=== PATIENT | male | born 1930 | race Caucasian/White ===

== ENCOUNTER 2016-06-25 02:12 | Inpatient (IN) | payer OTHER ==
[2016-06-25] VITALS (12 sets, daily range): BP systolic 83–120; BP diastolic 50–64; O2SAT 86–92
[~2016-06-25] VITALS: Ht 188 cm; Wt 69.2 kg
[2016-06-25] MEDS ORDERED: MUCI30TA2 PO (02:44)
[2016-06-25] MEDS ORDERED: MECL-86 PO (02:44)
[2016-06-25] MEDS ORDERED: ASPI1TAB PO (02:44)
[2016-06-25] MEDS ORDERED: ACET500T37 PO (02:44)
[2016-06-25] MEDS ORDERED: OMEP40CA2 PO (02:44)
[2016-06-25] MEDS ORDERED: SIMV10TA2 PO (02:44)
[2016-06-25] MEDS ORDERED: METO25TA74 PO (02:44)
[2016-06-25] MEDS ORDERED: IBUPROFEN 600 MG TAB As Ordered ONE (03:05)
[2016-06-25] MEDS ORDERED: IBUPROFEN 600 MG TAB PO ONE (03:15)
[2016-06-25] MEDS ORDERED: NS 500 ML IV ONE (05:00)
[2016-06-25 05:13] LABS: MEAN CORPUSCULAR HEMOGLOBIN 32.9 pg (27.0-33.0); MEAN CORPUSCULAR HGB CONC 33.9 g/dl (32.0-36.5); MEAN CORPUSCULAR VOLUME 96.9 fl (80.0-96.0); PLATELET COUNT, AUTOMATED 163 k/mm3 (150-450); RED CELL DISTRIBUTION WIDTH 13.1 % (11.5-14.5); WHITE BLOOD COUNT 5.6 K/mm3 (4.0-10.0)
[2016-06-25] MEDS ORDERED: AZITHROMYCIN INJ 500 MG, VIAL MATE ADAPTER 1 EACH in D5W 250 ML IV ONE (05:15)
[2016-06-25] MEDS ORDERED: CEFUROXIME SODIUM 1.5 GM in D5W MINI-BAG PLUS 50 ML IV ONE ×2 (05:15→06:30)
[2016-06-25 05:16] LABS: ALBUMIN 3.3 GM/DL (3.2-5.2); ALBUMIN/GLOBULIN RATIO 1.22 (1.00-1.93); ALKALINE PHOSPHATASE 51 U/L (45-117); ALT/SGPT 14 U/L (12-78); AMYLASE 33 U/L (25-115); ANION GAP 9 MEQ/L (8-16); AST/SGOT 14 U/L (15-37); BILIRUBIN,DIRECT 0.1 MG/DL (0.0-0.2); BILIRUBIN,TOTAL 0.4 MG/DL (0.2-1.0); BLOOD UREA NITROGEN 21 MG/DL (7-18); CALCIUM LEVEL 8.5 MG/DL (8.8-10.2); CARBON DIOXIDE LEVEL 26 MEQ/L (21-32); CHLORIDE LEVEL 108 MEQ/L (98-107); CREATININE FOR GFR 0.73 MG/DL (0.70-1.30); GLOMERULAR FILTRATION RATE > 60.0 (>35); GLUCOSE, FASTING 117 MG/DL (83-110); POTASSIUM SERUM 3.5 MEQ/L (3.5-5.1); SODIUM LEVEL 143 MEQ/L (136-145)
[2016-06-25] MEDS ORDERED: FLON1SPR (06:05)
[2016-06-25] MEDS ORDERED: NS 1,000 ML IV SCH (06:06)
[2016-06-25] MEDS ORDERED: ONDANSETRON 4MG/2ML VIAL (J2405) IV PRN (06:15)
[2016-06-25] MEDS ORDERED: POTASSIUM CHLORIDE 10 MEQ SR TABLET PO ONE (06:15)
[2016-06-25 06:17] LABS: MAGNESIUM LEVEL 1.6 MG/DL (1.8-2.4)
[2016-06-25] MEDS: HEPARIN SOD (PORCINE) 5000 UNITS/ML VIAL SC SCH ×3 (06:39→21:14)
[2016-06-25] MEDS ORDERED: MAG SULF 1GM/100ML (MAG RUN) 1 GM in APPROPRIATE DILUENT 1 EA IV ONE (06:45)
--- NOTE | 2016-06-25 07:34 | HPE ---
DATE OF ADMISSION: 06/25/2016 PRIMARY CARE PROVIDER: Dr. Tiago Jha CHIEF COMPLAINT: Nausea, vomiting, cough and shortness of breath. HISTORY OF PRESENT ILLNESS: The patient is a poor historian and very hard of hearing. This is an 86-year-old male patient with underlying medical history of hypertension, dyslipidemia, gastroesophageal reflux disease (GERD), and remote history of bladder cancer who presented with a couple of weeks history of cough and over the last night reported that around midnight with chills. He was found to be with fever of 103 in the emergency room. He was also vomiting with mucusy material times three. The patient reported cough over the past couple of days with white phlegm. He does have sick contact. The patient's is at the halfway and he visits every day. The patient denies any chest pain, pressure or discomfort. He denies any abdominal pain or diarrhea. He was found to be hypoxic as well. He does not use oxygen at home. He does have history of obstructive sleep apnea and is supposed to use a CPAP, but because of the skin lesion was not able to do so. ALLERGIES: No known drug allergies. PAST MEDICAL HISTORY: 1. GERD. 2. Dyslipidemia. 3. Hypertension. 4. Remote history of bladder cancer. 5. Obstructive sleep apnea. PAST SURGICAL HISTORY: 1. Toe surgery. 2. Vascular surgery on the leg for superficial blood clots. SOCIAL HISTORY: The patient lives at home alone. His is at the halfway. The patient smoked many years ago, quit smoking in 1970s. He does not drink alcohol. He does not use illicit drugs. FAMILY HISTORY: Noncontributory. REVIEW OF SYSTEMS: Ten point review of systems negative except for those mentioned in the history of present illness (HPI). The patient denies any coronary artery disease or cerebrovascular disease. Baseline is relatively healthy. HOME MEDICATIONS: - aspirin 81 mg by mouth daily - acetaminophen 500 mg by mouth every 4 hours as needed - Flonase inhalation daily - meclizine 25 mg by mouth twice a day - metoprolol 25 mg by mouth daily - Mucinex by mouth daily - omeprazole 20 mg by mouth daily - Zocor 10 mg by mouth daily PHYSICAL EXAMINATION: VITAL SIGNS: Temperature maximum (T-max) 103.1. Pulse 108. Respiratory rate 20. Blood pressure 116/64. The patient did have an episode of hypotension down to 80/50. Pulse oximetry 86% on room air and 92% on 2 liters nasal cannula. GENERAL: Patient alert, oriented times three, hard of hearing, in no acute distress. HEENT: Normocephalic, atraumatic. Pale. PULMONARY: Bilateral rhonchi, right greater than left. No wheeze. CARDIAC: Regular rate and rhythm. Normal S1, S2. ABDOMEN: Soft. Nontender. Nondistended. EXTREMITIES: No edema of bilateral lower extremities. Dorsalis pedis (DP) and posterior tibial (PT) pulses bilaterally intact. Chest x-ray shows right middle lobe infiltrate and consolidations. LABORATORY: WBC 5.6, hemoglobin and hematocrit (H and H) 13.4 over 39.5. Platelets 163. Chemistry: Sodium 143, potassium 3.5, chloride 108, bicarbonate 26, BUN 21, creatinine 0.73, lactic acid 1.4, C-reactive protein negative, lipase negative. ASSESSMENT AND PLAN: This is an 86-year-old male patient with underlying medical history of hypertension, dyslipidemia, gastroesophageal reflux disease, remote history of bladder cancer, and obstructive sleep apnea, admitted with sepsis secondary to community acquired bacterial pneumonia. PROBLEM: 1. Sepsis secondary to community acquired bacterial pneumonia. IV fluids, Rocephin, azithromycin, and respiratory panel. Sputum cultures and blood cultures. Influenza negative. Lactic acid negative. Followup C-reactive protein. 2. Hypertension. Given patient's borderline low blood pressure in the emergency room, will hold blood pressure medication and restart as needed. 3. Dyslipidemia. Continue statin. 4. Gastroesophageal reflux disease. Continue proton pump inhibitor (PPI). 5. Obstructive sleep apnea. Counseling provided. Patient will need refitting of the mask as outpatient. Will put patient on obstructive sleep apnea protocol. 6. Deep vein thrombosis (DVT) prophylaxis. Heparin subcutaneous. DISPOSITION: Pending clinical improvement and cultures.
[2016-06-25] MEDS: NS 1,000 ML IV SCH ×2 (07:36→10:42)
--- NOTE | 2016-06-25 08:38 | REP ---
REASON: Fever. COMPARISON: 05/18/2011 New patchy interstitial and airspace opacities have developed in the right upper and right lower lobes with blunting of the right CP angle. The left lung is unchanged. The cardiomediastinal silhouette is unchanged. There is no change in the osseous structures. IMPRESSION: Right upper and lower lobe pneumonia with a small right pleural effusion. Signed by Janak Terrell DO 06/25/2016 08:49 A
[2016-06-25] MEDS ORDERED: SODIUM CHLORIDE 0.9% 1000 ML IV ONE (10:00)
[2016-06-25] MEDS: FLUTICASONE PROP 0.05% NASAL SPRAY 16 GM (FLONASE) SCH (10:42)
[2016-06-25] MEDS: LACTOBACILLUS ACIDOPHILUS CAP (BACID) PO SCH ×2 (10:43→21:14)
[2016-06-25] MEDS: ASPIRIN 81 MG ENTERIC TAB PO SCH (10:46)
[2016-06-25] MEDS: OMEPRAZOLE 20 MG CAP PO SCH (10:46)
[2016-06-25] MEDS: MECLIZINE 25 MG TABLET PO SCH ×2 (10:46→21:14)
--- NOTE | 2016-06-25 11:28 | IPNPDOC ---
Date Seen The patient was seen on 06/25/16. Progress Note Hospitalist Progress Note Subjective: Mr. Dunbar was seen and evaluated at the bedside this morning. He was resting comfortably and sleeping when I entered the room. He was easily awakened, and answers all of his questions appropriately. He states that he is feeling much better this morning, but he still gets winded even with the smallest exertion and he is also saturating only about 88-90% on 2 L nasal cannula, and he does not usually wear oxygen at home. He still has cough, but it is not very productive, just a small amount of sputum. He denies any chest pain, or palpitations. He has a good appetite, denies changes in vision or hearing, no nausea or vomiting, no constipation or diarrhea, he does not have any rashes, lumps, bumps, or bruises he cannot account for her, and he does not have any swelling in the lower extremities. The remainder of his review of systems is negative. Objective: General: Sitting upright in bed. Awake, alert, oriented 3. He is in no apparent distress HEENT: Head normocephalic, atraumatic, sclera are nonicteric. Hearing is grossly intact to conversation. He does wear hearing aids Respiratory: He does have some moderate crackles in the right lung sandoval, otherwise remainder of his lungs are clear to auscultation Cardiovascular: Regular rate and rhythm, with no rubs, gallops, or murmur. Abdomen: Soft, nontender, nondistended, no hepatosplenomegaly appreciated. Bowel sounds present. Extremities: 2+ pulses in the radial and dorsalis pedis bilaterally. No evidence of clubbing or cyanosis. Assessment/Plan: 1. Community-acquired bacterial pneumonia. Continue with IV fluids and empiric antibiotics of Rocephin and azithromycin. Influenza has returned negative, blood cultures are still pending. He has no leukocytosis, lactic acid this morning was negative, CRP is negative. He did have a fever of 103.1 upon admission, fever has abated this morning. Given his clinical picture, terrible exertional fatigue, and his continued need for oxygen, I do feel it necessary that he continue with inpatient stay and IV antibiotics. As there is some question as to whether this is aspiration related, we will have speech therapy come and evaluate him as well. 2. Chronic history of hypertension. His pressures continue to be on the low side , therefore we will continue to hold his home medications at this time. If he does begin to become hypertensive, we can restart them as needed 3. Hypomagnesemia. Repletion has been ordered. 4. Dyslipidemia. Continue statin 5. GERD. Continue PPI 6. Obstructive sleep apnea. He states that after he had multiple skin cancer lesions removed off of his face is masked no longer fits, therefore he will need outpatient refitting. 7. DVT prophylaxis with subcutaneous heparin My preceptor for this patient encounter was physically present in the building during the encounter and was fully available. As needed, all aspects of the patient interview, examination, medical decision making process, and medical care plan development were reviewed and approved by the preceptor. Preceptor is aware and concurs with the plan as stated in the body of this note and will attest to such by his/her cosignature. Attending Note: I have independently examined this patient and all aspects of the exam and treatment decisions have been discussed with the resident. A member of the hospitalist staff will continue to follow this patient through discharge. [facility] Vital Signs/I&O Vital Signs Date Time Temp Pulse Resp B/P Pulse Ox O2 Delivery O2 Flow Rate FiO2 06/25/16 06:47 84 20 93/54 92 Nasal Cannula 2 06/25/16 05:39 97.9 Laboratory Data 24H LABS Laboratory Tests 2 06/25/16 02:46: Aspartate Amino Transf (AST/SGOT) 14L, Alanine Aminotransferase (ALT/SGPT) 14, Alkaline Phosphatase 51, Total Bilirubin 0.4, Direct Bilirubin 0.1, Albumin 3.3 , Albumin/Globulin Ratio 1.22, Amylase Level 33, Anion Gap 9, White Blood Count 5.6, Red Blood Count 4.07L, Hemoglobin 13.4L, Hematocrit 39.5L, Mean Corpuscular Volume 96.9H, Mean Corpuscular Hemoglobin 32.9, Mean Corpuscular Hemoglobin Concent 33.9, Red Cell Distribution Width 13.1, Platelet Count 163, Neutrophils (%) (Auto) , Lymphocytes (%) (Auto) , Monocytes (%) (Auto) , Eosinophils (%) (Auto) , Basophils (%) (Auto) , Neutrophils # (Auto) , Lymphocytes # (Auto) , Monocytes # (Auto) , Eosinophils # (Auto) , Basophils # ( Auto) , C-Reactive Protein, Quantitative < 0.30, Calcium Level 8.5L, Glomerular Filtration Rate > 60.0, Large Unclassified Cells # , Large Unclassified Cells % , Lipase 68L, Lymphocytes (Manual) 8L, Magnesium Level 1.6L, Monocytes (Manual) 2, Neutrophils 90H, Platelet Estimate NORMAL, Red Blood Cell Morphology NORMAL, Total Protein 6.0L 06/25/16 06:03: Lactic Acid Level 1.4 CBC/BMP Laboratory Tests 06/25/16 02:46 Red Blood Count 4.07 L, Mean Corpuscular Volume 96.9 H, Mean Corpuscular Hemoglobin 32.9, Mean Corpuscular Hemoglobin Concent 33.9, Red Cell Distribution Width 13.1, Neutrophils (%) (Auto) , Lymphocytes (%) (Auto) , Monocytes (%) (Auto) , Eosinophils (%) (Auto) , Basophils (%) (Auto) , Neutrophils # (Auto) , Lymphocytes # (Auto) , Monocytes # (Auto) , Eosinophils # (Auto) , Basophils # (Auto) Microbiology Microbiology 06/25/16 Blood Culture, Received Pending 06/25/16 Influenza Virus Type A Antigen - Final, Complete 06/25/16 Influenza Virus Type B Antigen - Final, Complete JANNY LI DO Jun 25, 2016 11:27 YAMIL AIKEN DO Jun 27, 2016 08:20
--- NOTE | 2016-06-25 13:50 | ECGEPIP ---
Stationary ECG Study [facility] Test Date: 2016-06-25 Pat Name: KRYSTINA LUTHER Department: Room: [facility] Gender: M Contact Center Analyst: MARISOL : [id number] Requested By: SILVIO VALVERDE Order Number: [id number] Reading MD: Garrett Landeros Measurements Intervals [place] Rate: 78 P: 29 DE: 255 QRS: -31 QRSD: 132 T: 22 QT: 420 QTc: 479 Interpretive Statements SINUS RHYTHM WITH FIRST DEGREE AV BLOCK LEFT AXIS DEVIATION INTRAVENTRICULAR CONDUCTION DELAY Electronically Signed On 06-25-2016 13:50:26 EDT by Garrett Landeros
[2016-06-25] MEDS: cefTRIAXone SOD 2 GM in D5W MINI-BAG PLUS 50 ML IV SCH (18:26)
[2016-06-25] MEDS: SIMVASTATIN 10 MG TAB PO SCH (21:14)
[2016-06-26] VITALS (13 sets, daily range): BP systolic 117–138; BP diastolic 64–78; O2SAT 90–94
[2016-06-26 01:56] LABS: INR 1.08
[2016-06-26] MEDS: NS 1,000 ML IV SCH ×2 (04:13→15:33)
[2016-06-26] MEDS: AZITHROMYCIN INJ 500 MG, VIAL MATE ADAPTER 1 EACH in D5W 250 ML IV SCH (05:02)
[2016-06-26] MEDS: HEPARIN SOD (PORCINE) 5000 UNITS/ML VIAL SC SCH ×3 (05:03→21:47)
[2016-06-26 05:52] LABS: MEAN CORPUSCULAR HEMOGLOBIN 33.9 pg (27.0-33.0); MEAN CORPUSCULAR HGB CONC 34.6 g/dl (32.0-36.5); MEAN CORPUSCULAR VOLUME 97.7 fl (80.0-96.0); RED CELL DISTRIBUTION WIDTH 13.2 % (11.5-14.5); WHITE BLOOD COUNT 8.4 K/mm3 (4.0-10.0)
[2016-06-26 06:04] LABS: ANION GAP 6 MEQ/L (8-16); BLOOD UREA NITROGEN 15 MG/DL (7-18); CALCIUM LEVEL 8.2 MG/DL (8.8-10.2); CARBON DIOXIDE LEVEL 28 MEQ/L (21-32); CHLORIDE LEVEL 109 MEQ/L (98-107); CREATININE FOR GFR 0.56 MG/DL (0.70-1.30); GLOMERULAR FILTRATION RATE > 60.0 (>35); GLUCOSE, FASTING 102 MG/DL (83-110); MAGNESIUM LEVEL 1.9 MG/DL (1.8-2.4); POTASSIUM SERUM 3.7 MEQ/L (3.5-5.1); SODIUM LEVEL 143 MEQ/L (136-145)
[2016-06-26] MEDS ORDERED: ISOVUE-370 76% 100ML VIAL (Q9967) As Ordered ONE (07:56)
--- NOTE | 2016-06-26 08:05 | IPN ---
DATE: 06/26/2016 86-year-old male seen at bedside. No overnight issues reported. No fevers, chills, nausea or vomiting. However, he is having some issues with hypoxia today requiring elevation in his oxygen supplementation. At bedside, however, he is pleasant and he denies shortness of breath. However, he said he had some hemoptysis this morning. OBJECTIVE: Temperature is 99.7, pulse 77, respiratory rate 20, blood pressure (BP) 117/64, SPO2 is 92% on high-flow at 8 liters. General: The patient appears to be in no acute distress. He is pleasant to talk. He is able speak in complete sentences and does not acutely appear to be in any respiratory distress. HEENT: Head is a atraumatic, normocephalic. Eyes: Pupils equal, reactive to light and accommodation (BRANDYN. Throat clear. Lungs: Diminished right basilar breath sounds with expiratory wheeze and crackles noted on the right. The left has a diminished basal breath sound, but otherwise clear. Heart: Regular rate and rhythm. Abdomen: Soft. Extremities: No edema. No calf tenderness. LABORATORY DATA: White count is 8.4, hemoglobin 11.5, platelets 128,000. Sodium 143, potassium 3.7, chloride 109, bicarb 20, anion gap 6, BUN is 15, creatinine 0.56, glucose 102, lactic acid 1.4, CRP is 16.8. Respiratory viral panel was negative. Influenza A and B negative. Blood cultures are pending. Sputum culture is pending. ASSESSMENT/PLAN: 1. Sepsis secondary to community acquired pneumonia. Continue with current antibiotic coverage. Lactic acid level was negative. We did do a repeat CRP which did have an increase, however, the patient remains afebrile. He is having some trouble with some hypoxia this morning. Will go ahead and do a CT angio of the chest and an ABG on him. 2. Acute hypoxia, as outlined above. 3. Hypertension. Holding his blood pressure medications for the time being. 4. Dyslipidemia. Continue statin. 5. Gastroesophageal reflux disease (GERD). Stable on proton pump inhibitor (PPI). 6. Obstructive sleep apnea (LINDSAY). LINDSAY protocol is in place. I do not see his C-PAP machine at bedside. We may need to discuss with respiratory therapy to see if we get a table top with his home settings. 7. Deep vein thrombosis (DVT) prophylaxis, subcutaneous heparin. DISPOSITION: The patient's prognosis is somewhat guarded at this point. Again, I would like to get a CT angio of the chest and an ABG for followup.
[2016-06-26] MEDS: FLUTICASONE PROP 0.05% NASAL SPRAY 16 GM (FLONASE) SCH (08:53)
[2016-06-26] MEDS: LACTOBACILLUS ACIDOPHILUS CAP (BACID) PO SCH ×2 (08:53→21:47)
[2016-06-26] MEDS: OMEPRAZOLE 20 MG CAP PO SCH (08:53)
[2016-06-26] MEDS: MECLIZINE 25 MG TABLET PO SCH ×2 (08:53→21:46)
[2016-06-26] MEDS: ASPIRIN 81 MG ENTERIC TAB PO SCH (08:53)
--- NOTE | 2016-06-26 09:42 | REP ---
REASON: Hematemesis and cough. COMPARISON: 07/25/2011. Contrast utilized 100 mL Isovue 370. There is good visualization of the pulmonary arterial vasculature. There are no focal filling defects present that would be considered consistent with pulmonary emboli. The thoracic aorta is within normal limits. There are small bilateral pleural effusions. The imaged upper abdomen is within normal limits. The imaged osseous structures are within normal limits for the patient's age. Evaluation of the lung sandoval show heavy patchy and asymmetric right upper lobe and right lower lobe opacities representing a significant change from the prior exam. Curvilinear and streaky opacities are seen in the left lung base. IMPRESSION: 1. There is no evidence of a pulmonary embolus. 2. Advanced lung sandoval abnormalities consistent with right upper and lower lobe pneumonia possible left lower lobe pneumonia versus subsegmental atelectasis with small bilateral pleural effusions. 3. Other findings as described above. Signed by Janak Terrell DO 06/26/2016 09:44 A
[2016-06-26 09:58] LABS: ABG BASE EXCESS -0.8 (-2.0-2.0); ABG HCO3 23.1 MEQ/L (22.0-26.0); ABG PARTIAL PRESSURE CO2 35.7 mmHg (35.0-45.0); ABG PARTIAL PRESSURE O2 60.5 mmHg (75.0-100.0); ABG STANDARD HCO3 23.7 MEQ/L (22.0-26.0); ABG TOTAL CO2 24.2 MEQ/L (23.0-31.0); ABG pH (ARTERIAL) 7.429 UNITS (7.350-7.450)
[2016-06-26] MEDS: cefTRIAXone SOD 2 GM in D5W MINI-BAG PLUS 50 ML IV SCH (18:48)
[2016-06-26] MEDS: SIMVASTATIN 10 MG TAB PO SCH (21:46)
[2016-06-27] VITALS (9 sets, daily range): BP systolic 106–141; BP diastolic 58–69; O2SAT 90–95
[2016-06-27 06:05] LABS: MEAN CORPUSCULAR HEMOGLOBIN 34.3 pg (27.0-33.0); MEAN CORPUSCULAR HGB CONC 35.1 g/dl (32.0-36.5); MEAN CORPUSCULAR VOLUME 97.8 fl (80.0-96.0); RED CELL DISTRIBUTION WIDTH 12.9 % (11.5-14.5); WHITE BLOOD COUNT 7.5 K/mm3 (4.0-10.0)
[2016-06-27 06:15] LABS: ANION GAP 8 MEQ/L (8-16); BLOOD UREA NITROGEN 8 MG/DL (7-18); CALCIUM LEVEL 9.2 MG/DL (8.8-10.2); CARBON DIOXIDE LEVEL 28 MEQ/L (21-32); CHLORIDE LEVEL 105 MEQ/L (98-107); CREATININE FOR GFR 0.53 MG/DL (0.70-1.30); GLOMERULAR FILTRATION RATE > 60.0 (>35); GLUCOSE, FASTING 89 MG/DL (83-110); MAGNESIUM LEVEL 2.1 MG/DL (1.8-2.4); POTASSIUM SERUM 3.5 MEQ/L (3.5-5.1); SODIUM LEVEL 141 MEQ/L (136-145)
[2016-06-27] MEDS: NS 1,000 ML IV SCH ×2 (06:28→18:53)
[2016-06-27] MEDS: AZITHROMYCIN INJ 500 MG, VIAL MATE ADAPTER 1 EACH in D5W 250 ML IV SCH (06:29)
[2016-06-27] MEDS: HEPARIN SOD (PORCINE) 5000 UNITS/ML VIAL SC SCH ×3 (06:31→20:38)
[2016-06-27] MEDS: MECLIZINE 25 MG TABLET PO SCH ×2 (09:29→20:38)
[2016-06-27] MEDS: LACTOBACILLUS ACIDOPHILUS CAP (BACID) PO SCH ×2 (09:29→20:38)
[2016-06-27] MEDS: ASPIRIN 81 MG ENTERIC TAB PO SCH (09:30)
[2016-06-27] MEDS: OMEPRAZOLE 20 MG CAP PO SCH (09:30)
[2016-06-27] MEDS: FLUTICASONE PROP 0.05% NASAL SPRAY 16 GM (FLONASE) SCH (09:35)
[2016-06-27] MEDS: cefTRIAXone SOD 2 GM in D5W MINI-BAG PLUS 50 ML IV SCH (18:39)
--- NOTE | 2016-06-27 18:50 | IPNPDOC ---
Date Seen The patient was seen on 06/27/16. Progress Note Hospitalist Progress Note Subjective: Patient has no complaints. He states his breathing has not changed. Objective: Physical Exam: Vitals: Vital Sign - Last 24 Hours 06/26/16 06/26/16 06/26/16 06/27/16 20:46 23:12 23:22 00:44 Temp 100.1 99.6 Pulse 82 80 Resp 20 20 B/P 138/67 141/68 Pulse Ox 91 93 92 O2 Delivery High Flow Cannula Nasal Cannula Nasal Cannula High Flow Cannula O2 Flow Rate 8.0 8.0 8.0 8.0 06/27/16 06/27/16 06/27/16 06/27/16 00:51 04:32 04:33 05:24 Temp 98.6 Pulse 75 Resp 20 B/P 139/69 Pulse Ox 90 95 O2 Delivery Nasal Cannula Nasal Cannula Nasal Cannula High Flow Cannula O2 Flow Rate 8.0 8.0 8.0 8.0 06/27/16 06/27/16 06/27/16 06/27/16 08:00 08:00 08:00 12:00 Temp 98.9 98.0 Pulse 78 67 Resp 20 18 B/P 116/67 130/64 Pulse Ox 95 90 94 O2 Delivery Nasal Cannula Nasal Cannula High Flow Cannula High Flow Cannula O2 Flow Rate 7.0 8.0 8.0 8.0 06/27/16 06/27/16 06/27/16 06/27/16 12:00 16:00 16:00 16:00 Temp 99.1 Pulse 77 Resp 18 B/P 106/58 Pulse Ox 95 94 94 O2 Delivery Nasal Cannula High Flow Cannula Nasal Cannula Nasal Cannula O2 Flow Rate 7.0 8.0 8.0 8.0 General: Awake, alert, no acute distress HEENT: Normocephalic, atraumatic, extraocular movements intact CV: Regular rate and rhythm, no murmurs rubs or gallops Lungs: Clear to auscultation bilaterally, moving good air Abd: Soft, nontender, nondistended Extremities: No edema of the bilateral lower extremities Neuro: Very hard of hearing, but normal speech, alert and oriented Psych: Normal mood and affect Labs and Imaging: Laboratory Tests 06/27/16 05:00 Calcium Level 9.2, Red Blood Count 3.51 L, Mean Corpuscular Volume 97.8 H, Mean Corpuscular Hemoglobin 34.3 H, Mean Corpuscular Hemoglobin Concent 35.1, Red Cell Distribution Width 12.9 Assessment and Plan: 86-year-old male with hypertension, hyperlipidemia, GERD, remote history of bladder cancer, LINDSAY who presented with vomiting, cough, chills, and shortness of breath. He has been admitted with sepsis secondary to a right community- acquired pneumonia. 1. Sepsis secondary to a right community-acquired pneumonia: Patient is currently afebrile with a normal white count. However, he continues to require 8 L of oxygen. Chest x-ray and CT of the chest showed right upper lobe and right lower lobe pneumonias as well as a small right pleural effusion. Blood cultures are negative, and his sputum culture is currently growing GPC's. Continue azithromycin and Rocephin. 2. Hypertension: Blood pressure upon admission was fairly soft. BP has now improved, but we are still holding his home metoprolol. At this point, I believe we can stop his IV fluids. 3. Hyperlipidemia: Continue home statin. 4. GERD: Continue home PPI. 5. LINDSAY: Patient needs refitting of his mask as an outpatient. He is currently on continuous pulse ox in the PCU. DVT prophylaxis: Heparin Dispo: at this time, the patient's prognosis continues to be guarded and he will need to remain in the PCU for close monitoring. VS, [facility] Vital Signs/I&O Vital Signs Date Time Temp Pulse Resp B/P Pulse Ox O2 Delivery O2 Flow Rate FiO2 06/27/16 16:00 Nasal Cannula 8.0 06/27/16 16:00 94 06/27/16 16:00 99.1 77 18 106/58 I&O- Last 24 Hours up to 6 AM 06/27/16 06:00 Intake Total 600 ml Output Total 1550 ml Balance -950 ml Laboratory Data 24H LABS Laboratory Tests 2 06/27/16 04:13: Urine Amorphous Sediment , Urine Appearance CLEAR, Urine Color STRAW, Urine pH 7.0, Urine Specific [place] 1.003, Urine Protein NEGATIVE, Urine Glucose (UA) NEGATIVE, Urine Ketones TRACEH, Urine Urobilinogen 0.2, Urine Bilirubin NEGATIVE , Urine Leukocyte Esterase NEGATIVE, Urine Bacteria (Auto) NEGATIVE, Urine Blood NEGATIVE, Urine Calcium Carbonate Cryst(Auto) , Urine Calcium Oxalate Cryst (Auto) , Urine Calcium Phosphate [place] (Auto) , Urine Cellular Casts , Urine Cystine Crystals , Urine Granular Casts (Auto) , Urine Hyaline Casts (Auto ) 0, Urine Leucine Crystals , Urine Mucus (Auto) SMALL, Urine Nitrite NEGATIVE, Urine Oval Fat Bodies (Auto) , Urine RBC (Auto) 0, Urine Renal Epithelial Cells , Urine Sperm (Auto) , Urine Squamous Epithelial Cells 0, Urine Transitional Epithelial Cells , Urine Trichomonas (Auto) , Urine Triple Phosphate Cryst (Auto ) , Urine Tyrosine Crystals , Urine Uric Acid Crystals (Auto) , Urine WBC (Auto ) 0, Urine Waxy Casts (Auto) , Urine Yeast-Like Cells (Auto) 06/27/16 05:00: Anion Gap 8, Blood Urea Nitrogen 8, Creatinine 0.53L, Sodium Level 141, Potassium Level 3.5, Chloride Level 105, Carbon Dioxide Level 28, Calcium Level 9.2, Glomerular Filtration Rate > 60.0, Magnesium Level 2.1 CBC/BMP Laboratory Tests 06/27/16 05:00 Calcium Level 9.2, Red Blood Count 3.51 L, Mean Corpuscular Volume 97.8 H, Mean Corpuscular Hemoglobin 34.3 H, Mean Corpuscular Hemoglobin Concent 35.1, Red Cell Distribution Width 12.9 Microbiology Microbiology 06/25/16 Blood Culture - Preliminary, Resulted No Growth after 48 hours. All Specime... 06/26/16 Gram Stain - Final, Resulted 06/26/16 Sputum Culture, Resulted Pending 06/26/16 MRSA Screen - Final, Complete 06/25/16 Respiratory Virus Panel (PCR) (KEVIN) - Final, Complete 06/25/16 Influenza Virus Type A Antigen - Final, Complete 06/25/16 Influenza Virus Type B Antigen - Final, Complete DIONNE JALLOH Jun 27, 2016 18:50
[2016-06-27] MEDS: SIMVASTATIN 10 MG TAB PO SCH (20:38)
[2016-06-28] VITALS (9 sets, daily range): BP systolic 112–146; BP diastolic 55–77; O2SAT 91–94
[2016-06-28 05:45] LABS: MEAN CORPUSCULAR HEMOGLOBIN 33.1 pg (27.0-33.0); MEAN CORPUSCULAR VOLUME 97.3 fl (80.0-96.0); RED CELL DISTRIBUTION WIDTH 12.7 % (11.5-14.5); WHITE BLOOD COUNT 5.9 K/mm3 (4.0-10.0)
[2016-06-28 05:56] LABS: ANION GAP 6 MEQ/L (8-16); BLOOD UREA NITROGEN 7 MG/DL (7-18); CALCIUM LEVEL 8.3 MG/DL (8.8-10.2); CARBON DIOXIDE LEVEL 28 MEQ/L (21-32); CHLORIDE LEVEL 108 MEQ/L (98-107); CREATININE FOR GFR 0.47 MG/DL (0.70-1.30); GLOMERULAR FILTRATION RATE > 60.0 (>35); GLUCOSE, FASTING 103 MG/DL (83-110); POTASSIUM SERUM 3.4 MEQ/L (3.5-5.1); SODIUM LEVEL 142 MEQ/L (136-145)
[2016-06-28] MEDS: NS 1,000 ML IV SCH ×2 (06:43→16:41)
[2016-06-28] MEDS: AZITHROMYCIN INJ 500 MG, VIAL MATE ADAPTER 1 EACH in D5W 250 ML IV SCH (06:45)
[2016-06-28] MEDS: HEPARIN SOD (PORCINE) 5000 UNITS/ML VIAL SC SCH ×3 (06:50→21:34)
[2016-06-28] MEDS ORDERED: POTASSIUM CHLORIDE 10 MEQ SR TABLET PO ONE (08:00)
[2016-06-28 08:33] LABS: ABG HCO3 29.3 MEQ/L (22.0-26.0); ABG PARTIAL PRESSURE O2 68.7 mmHg (75.0-100.0); ABG STANDARD HCO3 28.9 MEQ/L (22.0-26.0); ABG TOTAL CO2 30.6 MEQ/L (23.0-31.0); ABG pH (ARTERIAL) 7.461 UNITS (7.350-7.450)
[2016-06-28] MEDS: MECLIZINE 25 MG TABLET PO SCH ×2 (08:37→21:34)
[2016-06-28] MEDS: LACTOBACILLUS ACIDOPHILUS CAP (BACID) PO SCH ×2 (08:37→21:33)
[2016-06-28] MEDS: OMEPRAZOLE 20 MG CAP PO SCH (08:38)
[2016-06-28] MEDS: ASPIRIN 81 MG ENTERIC TAB PO SCH (08:38)
[2016-06-28] MEDS: FLUTICASONE PROP 0.05% NASAL SPRAY 16 GM (FLONASE) SCH (08:38)
[2016-06-28] MEDS: cefTRIAXone SOD 2 GM in D5W MINI-BAG PLUS 50 ML IV SCH (16:47)
[2016-06-28] MEDS: ACETAMINOPHEN TAB 650MG DOSE (2X325MG) PO PRN (16:47)
--- NOTE | 2016-06-28 18:55 | IPNPDOC ---
Date Seen The patient was seen on 06/28/16. Progress Note Hospitalist Progress Note Subjective: Patient has no complaints. He states he is more comfortable today Objective: Physical Exam: Vitals: Vital Sign - Last 24 Hours 06/27/16 06/27/16 06/27/16 06/27/16 20:00 20:15 21:45 23:59 Temp 99.9 99.3 Pulse 80 85 Resp 18 18 B/P 109/58 128/64 Pulse Ox 92 91 90 O2 Delivery High Flow Cannula Nasal Cannula Nasal Cannula High Flow Cannula O2 Flow Rate 8.0 8.0 8.0 8.0 06/28/16 06/28/16 06/28/16 06/28/16 00:52 00:53 04:00 04:49 Temp 99.2 Pulse 77 Resp 18 B/P 112/55 Pulse Ox 93 95 O2 Delivery Nasal Cannula Nasal Cannula High Flow Cannula Nasal Cannula O2 Flow Rate 8.0 8.0 8.0 8.0 06/28/16 06/28/16 06/28/16 06/28/16 04:51 07:30 07:45 12:00 Temp 98.9 98.7 Pulse 79 85 Resp 20 20 B/P 132/77 120/62 Pulse Ox 91 93 93 O2 Delivery Nasal Cannula High Flow Mask High Flow Cannula High Flow Cannula O2 Flow Rate 8.0 8.0 8.0 8.0 06/28/16 06/28/16 06/28/16 15:30 16:00 17:30 Temp 100.3 99.4 Pulse 77 Resp 20 B/P 146/77 Pulse Ox 94 O2 Delivery High Flow Mask High Flow Cannula O2 Flow Rate 8.0 8.0 General: Awake, alert, no acute distress HEENT: Normocephalic, atraumatic, extraocular movements intact CV: Regular rate and rhythm, no murmurs rubs or gallops Lungs: Clear to auscultation bilaterally, moving good air Abd: Soft, nontender, nondistended Extremities: No edema of the bilateral lower extremities Neuro: Very hard of hearing, but normal speech, alert and oriented Psych: Normal mood and affect Labs and Imaging: Laboratory Tests 06/28/16 05:30 Calcium Level 8.3 L, Red Blood Count 3.32 L, Mean Corpuscular Volume 97.3 H, Mean Corpuscular Hemoglobin 33.1 H, Mean Corpuscular Hemoglobin Concent 34.0, Red Cell Distribution Width 12.7 Assessment and Plan: 86-year-old male with hypertension, hyperlipidemia, GERD, remote history of bladder cancer, LINDSAY who presented with vomiting, cough, chills, and shortness of breath. He has been admitted with sepsis secondary to a right community- acquired pneumonia. 1. Sepsis secondary to a right community-acquired pneumonia: Patient is currently afebrile with a normal white count. However, he continues to require 8 L of oxygen. Chest x-ray and CT of the chest showed right upper lobe and right lower lobe pneumonias as well as a small right pleural effusion. Blood cultures are negative, and his sputum culture is currently growing normal tarun. Although his lungs sound surprisingly good, he continues with a high O2 requirement and he had a Tmax of 100.3 this afternoon. I think we need to broaden his abx coverage. Change azithromycin and Rocephin to vanc/levaquin/ zosyn. 2. Hypertension: Blood pressure upon admission was fairly soft. BP has now improved, but we are still holding his home metoprolol. 3. Hyperlipidemia: Continue home statin. 4. GERD: Continue home PPI. 5. LINDSAY: Patient needs refitting of his mask as an outpatient. He is currently on continuous pulse ox in the PCU. DVT prophylaxis: Heparin Dispo: at this time, the patient's prognosis continues to be guarded and he will need to remain in the PCU for close monitoring. VS, I&O, 24H, Fishbone Vital Signs/I&O Vital Signs Date Time Temp Pulse Resp B/P Pulse Ox O2 Delivery O2 Flow Rate FiO2 06/28/16 17:30 99.4 06/28/16 16:00 77 20 146/77 94 High Flow Cannula 8.0 I&O- Last 24 Hours up to 6 AM 06/28/16 05:59 Intake Total 2590 ml Output Total 0 ml Balance 2590 ml Laboratory Data 24H LABS Laboratory Tests 2 06/28/16 05:30: Anion Gap 6L, Blood Urea Nitrogen 7, Creatinine 0.47L, Sodium Level 142, Potassium Level 3.4L, Chloride Level 108H, Carbon Dioxide Level 28, Calcium Level 8.3L, Glomerular Filtration Rate > 60.0, Magnesium Level 2.0 06/28/16 08:28: Arterial Blood pH 7.461H, Arterial Blood Partial Pressure CO2 42.0, Arterial Blood Partial Pressure O2 68.7L, Arterial Blood Total CO2 30.6, Arterial Blood HCO3 29.3H, Arterial Blood Base Excess 5.0H, Arterial Blood Oxygen Saturation 94.2L, Blood Gas Bicarbonate Standard 28.9H CBC/BMP Laboratory Tests 06/28/16 05:30 Calcium Level 8.3 L, Red Blood Count 3.32 L, Mean Corpuscular Volume 97.3 H, Mean Corpuscular Hemoglobin 33.1 H, Mean Corpuscular Hemoglobin Concent 34.0, Red Cell Distribution Width 12.7 Microbiology Microbiology 06/25/16 Blood Culture - Preliminary, Resulted No Growth after 72 hours. All specime... 06/26/16 Gram Stain - Final, Complete 06/26/16 Sputum Culture - Final, Complete 06/26/16 MRSA Screen - Final, Complete 06/25/16 Respiratory Virus Panel (PCR) ([facility]) - Final, Complete 06/25/16 Influenza Virus Type A Antigen - Final, Complete 06/25/16 Influenza Virus Type B Antigen - Final, Complete DIONNE JALLOH Jun 28, 2016 18:55
--- NOTE | 2016-06-28 19:12 | PHACANCOPD ---
PHARMACY VANCOMYCIN DOSING Pt Demographics Demographics Patient Age:86 , Weight:72.600 , Gender: male Adjusted Body Weight Events Past 24 Hours Events Past 24 Hours: NO: Change in CrCl, Dialysis, Diuretic Therapy, Elevation in WBC, Fever, Other, Pending Diagnostics, Pending Procedures Vancomycin Vancomycin Target Ranges: 15-20 mcg/ml Vancomycin Load Y/N: Yes Load Dose Date Time Vancomycin Load Dose: 1.5GM Date: 06/28/16 Time: 21:00 Vancomycin Dose Date: 06/29/16. Current Vancomycin Dose: [1GM IV Q12H start 9AM] Intermittent Dosing?: No Labs Labs Laboratory Tests 06/28/16 05:30 Calcium Level 8.3 L, Red Blood Count 3.32 L, Mean Corpuscular Volume 97.3 H, Mean Corpuscular Hemoglobin 33.1 H, Mean Corpuscular Hemoglobin Concent 34.0, Red Cell Distribution Width 12.7 Micro 06/26/16 Sputum Culture - G+ cocci in CL & CH REPORTED NORMAL MARIA ISABEL Creatinine Clearance Date:06/28/16. Creatinine Clearance: [>50 ml/min]. Assessment and Plan Maintaining Current Dose?: Yes Reason for dose change: Other Pharmacist Note Pharmacist Note Date: 06/28/16. Pharm.D. note: 86YO MALE, 72" in HEIGHT, 72KH in WEIGHT PRESENTING WITH SEPSIS SECONDARY TO CAP. HE HAS FAILED CEPHALOSPORIN/MACROLIDE IV TX. HOSPITALIST INITIATED ZOSYN 3.375GM IV Q6H 20:00, LEVAQUIN 750MG IV Q24H ( MidNIGHT) AND A REQUEST FOR VANCO TX WITH A GOAL TROUGH = 15-20 Mcg/ml. WE WILL GIVE HIM A VANCO 1.5GM LOAD OVER 2HRS STARTING AT 21:00 AND THEN CONTINUE WITH VANCO 1GM IV Q12H STARTING AT 9AM 06/29/16. A VANCO TROUGH WILL BE DRAWN WHEN HE IS AT STEADY STATE. YAMEL, Pharm.D. [facility] Jun 28, 2016 19:12
[2016-06-28] MEDS: PIPERACILLIN/TAZOBACTAM SOD 3.375 GM in D5W MINI-BAG PLUS 50 ML IV SCH (21:00)
[2016-06-28] MEDS: VANCOMYCIN HCL 1,000 MG, VIAL MATE ADAPTER 1 EACH in D5W 250 ML IV SCH (21:34)
[2016-06-28] MEDS: SIMVASTATIN 10 MG TAB PO SCH (21:34)
[2016-06-28] MEDS ORDERED: VANCOMYCIN HCL 500 MG in D5W MINI-BAG PLUS 100 ML IV ONE (22:00)
[2016-06-29] VITALS (25 sets, daily range): BP systolic 126–148; BP diastolic 63–77; O2SAT 88–94
[2016-06-29] MEDS: PIPERACILLIN/TAZOBACTAM SOD 3.375 GM in D5W MINI-BAG PLUS 50 ML IV SCH ×4 (02:32→20:07)
[2016-06-29] MEDS: ACETAMINOPHEN TAB 650MG DOSE (2X325MG) PO PRN (04:03)
[2016-06-29 06:06] LABS: MEAN CORPUSCULAR HEMOGLOBIN 33.3 pg (27.0-33.0); MEAN CORPUSCULAR HGB CONC 34.5 g/dl (32.0-36.5); MEAN CORPUSCULAR VOLUME 96.4 fl (80.0-96.0); RED CELL DISTRIBUTION WIDTH 12.6 % (11.5-14.5); WHITE BLOOD COUNT 5.2 K/mm3 (4.0-10.0)
[2016-06-29] MEDS: HEPARIN SOD (PORCINE) 5000 UNITS/ML VIAL SC SCH ×3 (06:10→21:18)
[2016-06-29] MEDS: NS 1,000 ML IV SCH ×2 (06:13→10:26)
[2016-06-29 06:20] LABS: ANION GAP 5 MEQ/L (8-16); BLOOD UREA NITROGEN 5 MG/DL (7-18); CALCIUM LEVEL 8.6 MG/DL (8.8-10.2); CARBON DIOXIDE LEVEL 30 MEQ/L (21-32); CHLORIDE LEVEL 105 MEQ/L (98-107); CREATININE FOR GFR 0.51 MG/DL (0.70-1.30); GLOMERULAR FILTRATION RATE > 60.0 (>35); GLUCOSE, FASTING 109 MG/DL (83-110); POTASSIUM SERUM 3.8 MEQ/L (3.5-5.1); SODIUM LEVEL 140 MEQ/L (136-145)
[2016-06-29] MEDS: MECLIZINE 25 MG TABLET PO SCH ×2 (08:22→20:07)
[2016-06-29] MEDS: FLUTICASONE PROP 0.05% NASAL SPRAY 16 GM (FLONASE) SCH (08:22)
[2016-06-29] MEDS: LACTOBACILLUS ACIDOPHILUS CAP (BACID) PO SCH ×2 (08:22→20:07)
[2016-06-29] MEDS: OMEPRAZOLE 20 MG CAP PO SCH (08:22)
[2016-06-29] MEDS: ASPIRIN 81 MG ENTERIC TAB PO SCH (08:22)
[2016-06-29] MEDS ORDERED: AZITHROMYCIN 250 MG TAB PO SCH (09:00)
[2016-06-29] MEDS: VANCOMYCIN HCL 1,000 MG, VIAL MATE ADAPTER 1 EACH in D5W 250 ML IV SCH ×2 (09:54→21:18)
--- NOTE | 2016-06-29 10:53 | IPNPDOC ---
Date Seen The patient was seen on 06/29/16. Progress Note Hospitalist Progress Note Subjective: Patient has no complaints. He thinks his breathing is better today. Objective: Physical Exam: Vitals: Vital Sign - Last 24 Hours 06/28/16 06/28/16 06/28/16 06/28/16 12:00 15:30 16:00 17:30 Temp 98.7 100.3 99.4 Pulse 85 77 Resp 20 20 B/P 120/62 146/77 Pulse Ox 93 94 O2 Delivery High Flow Cannula High Flow Mask High Flow Cannula O2 Flow Rate 8.0 8.0 8.0 06/28/16 06/28/16 06/28/16 06/28/16 20:00 20:00 20:15 21:00 Temp 99.1 Pulse 85 Resp 20 B/P 130/69 Pulse Ox 92 93 94 O2 Delivery High Flow Cannula Nasal Cannula High Flow Mask Nasal Cannula O2 Flow Rate 8.0 8.0 8.0 8.0 06/28/16 06/29/16 06/29/16 06/29/16 23:59 00:00 03:00 04:00 Temp 98.4 99.5 Pulse 74 85 Resp 18 20 B/P 129/63 128/68 Pulse Ox 92 93 94 90 O2 Delivery High Flow Cannula Nasal Cannula Nasal Cannula High Flow Cannula O2 Flow Rate 8.0 8.0 8.0 8.0 06/29/16 06/29/16 06/29/16 06/29/16 04:15 05:00 06:00 07:40 Pulse Ox 90 93 O2 Delivery High Flow Mask Nasal Cannula Nasal Cannula High Flow Mask O2 Flow Rate 8.0 8.0 8.0 8.0 06/29/16 06/29/16 06/29/16 06/29/16 08:00 08:00 09:00 09:22 Temp 97.4 Pulse 80 Resp 18 B/P 136/63 Pulse Ox 93 92 93 93 O2 Delivery High Flow Cannula Nasal Cannula Nasal Cannula Nasal Cannula O2 Flow Rate 8.0 8.0 8.0 8.0 06/29/16 09:23 O2 Delivery High Flow Mask O2 Flow Rate 8.0 General: Awake, alert, no acute distress HEENT: Normocephalic, atraumatic, extraocular movements intact CV: Regular rate and rhythm, no murmurs rubs or gallops Lungs: Clear to auscultation bilaterally except for mild crackles at bases, moving good air Abd: Soft, nontender, nondistended Extremities: No edema of the bilateral lower extremities Neuro: Very hard of hearing, but normal speech, alert and oriented Psych: Normal mood and affect Labs and Imaging: Laboratory Tests 06/29/16 05:54 Calcium Level 8.6 L, Red Blood Count 3.31 L, Mean Corpuscular Volume 96.4 H, Mean Corpuscular Hemoglobin 33.3 H, Mean Corpuscular Hemoglobin Concent 34.5, Red Cell Distribution Width 12.6 Assessment and Plan: 86-year-old male with hypertension, hyperlipidemia, GERD, remote history of bladder cancer, LINDSAY who presented with vomiting, cough, chills, and shortness of breath. He has been admitted with sepsis secondary to a right community- acquired pneumonia. 1. Sepsis secondary to a right community-acquired pneumonia: Patient is currently afebrile with a normal white count. However, he continues to require 8 L of oxygen. Chest x-ray and CT of the chest showed right upper lobe and right lower lobe pneumonias as well as a small right pleural effusion. Blood cultures are negative, and his sputum culture is currently growing normal tarun. Although his lungs sound surprisingly good, he has continued to have a high O2 requirement, so on 06/28/16, we broadened his coverage from azithromycin and Rocephin to vanc/levaquin/zosyn. Recheck CXR today. 2. Hypertension: Blood pressure upon admission was fairly soft. BP has now improved, but we are still holding his home metoprolol. 3. Hyperlipidemia: Continue home statin. 4. GERD: Continue home PPI. 5. LINDSAY: Patient needs refitting of his mask as an outpatient. He is currently on continuous pulse ox in the PCU. DVT prophylaxis: Heparin Dispo: at this time, the patient's prognosis continues to be guarded and he will need to remain in the PCU for close monitoring. VS, I&O, 24H, Fishbone Vital Signs/I&O Vital Signs Date Time Temp Pulse Resp B/P Pulse Ox O2 Delivery O2 Flow Rate FiO2 06/29/16 09:23 High Flow Mask 8.0 06/29/16 09:22 93 06/29/16 08:00 97.4 80 18 136/63 I&O- Last 24 Hours up to 6 AM 06/29/16 06:00 Intake Total 4435 ml Balance 4435 ml Laboratory Data 24H LABS Laboratory Tests 2 06/29/16 05:54: Anion Gap 5L, Blood Urea Nitrogen 5L, Creatinine 0.51L, Sodium Level 140, Potassium Level 3.8, Chloride Level 105, Carbon Dioxide Level 30, Calcium Level 8.6L, Glomerular Filtration Rate > 60.0, Magnesium Level 2.0 CBC/BMP Laboratory Tests 06/29/16 05:54 Calcium Level 8.6 L, Red Blood Count 3.31 L, Mean Corpuscular Volume 96.4 H, Mean Corpuscular Hemoglobin 33.3 H, Mean Corpuscular Hemoglobin Concent 34.5, Red Cell Distribution Width 12.6 Microbiology Microbiology 06/25/16 Blood Culture - Preliminary, Resulted No Growth after 72 hours. All specime... 06/26/16 Gram Stain - Final, Complete 06/26/16 Sputum Culture - Final, Complete 06/26/16 MRSA Screen - Final, Complete 06/25/16 Respiratory Virus Panel (PCR) ([facility]) - Final, Complete 06/25/16 Influenza Virus Type A Antigen - Final, Complete 06/25/16 Influenza Virus Type B Antigen - Final, Complete DIONNE JALLOH Jun 29, 2016 10:53
--- NOTE | 2016-06-29 14:25 | REP ---
CHEST X-RAY: Two views. HISTORY: Persistent hypoxia. Comparison chest x-ray June 25, 2016. FINDINGS: There is a fairly extensive predominately interstitial infiltrate in the right upper lobe. This shows some evidence of clearing since the June 25, 2016 prior study. There is blunting of the pleural angles however indicating small bilateral effusions. This is new on the left and increased on the right compared to the prior study. Heart is not enlarged. The aorta is tortuous. Interstitial markings are somewhat increased in the right base improved from the prior study. No new infiltrate is seen. IMPRESSION: No new infiltrate. New small bilateral pleural effusions. Some clearing in the right upper lobe infiltrate seen. Signed by Esdras Miller MD 06/29/2016 05:03 P
[2016-06-29] MEDS: SIMVASTATIN 10 MG TAB PO SCH (20:07)
[2016-06-29] MEDS: LevoFLOXacin IV 750 MG in APPROPRIATE DILUENT 1 EA IV SCH ×3 (23:38)
[2016-06-30] VITALS (25 sets, daily range): BP systolic 114–140; BP diastolic 53–75; O2SAT 86–96
[2016-06-30] MEDS ORDERED: SLF 3 ML SYR IV PRN (01:30)
[2016-06-30] MEDS: PIPERACILLIN/TAZOBACTAM SOD 3.375 GM in D5W MINI-BAG PLUS 50 ML IV SCH ×4 (02:04→21:05)
[2016-06-30] MEDS: HEPARIN SOD (PORCINE) 5000 UNITS/ML VIAL SC SCH ×3 (05:33→22:09)
[2016-06-30] MEDS: SLF 3 ML SYR IV SCH ×3 (05:34→22:09)
[2016-06-30 05:56] LABS: MEAN CORPUSCULAR HEMOGLOBIN 34.1 pg (27.0-33.0); MEAN CORPUSCULAR HGB CONC 34.9 g/dl (32.0-36.5); MEAN CORPUSCULAR VOLUME 97.7 fl (80.0-96.0); RED CELL DISTRIBUTION WIDTH 12.7 % (11.5-14.5); WHITE BLOOD COUNT 5.1 K/mm3 (4.0-10.0)
[2016-06-30 06:22] LABS: ANION GAP 8 MEQ/L (8-16); BLOOD UREA NITROGEN 5 MG/DL (7-18); CALCIUM LEVEL 8.2 MG/DL (8.8-10.2); CARBON DIOXIDE LEVEL 28 MEQ/L (21-32); CHLORIDE LEVEL 104 MEQ/L (98-107); CREATININE FOR GFR 0.52 MG/DL (0.70-1.30); GLOMERULAR FILTRATION RATE > 60.0 (>35); GLUCOSE, FASTING 107 MG/DL (83-110); POTASSIUM SERUM 3.5 MEQ/L (3.5-5.1); SODIUM LEVEL 140 MEQ/L (136-145)
[2016-06-30] MEDS: ASPIRIN 81 MG ENTERIC TAB PO SCH (09:03)
[2016-06-30] MEDS: LACTOBACILLUS ACIDOPHILUS CAP (BACID) PO SCH ×2 (09:03→21:05)
[2016-06-30] MEDS: MECLIZINE 25 MG TABLET PO SCH ×2 (09:03→21:05)
[2016-06-30] MEDS: OMEPRAZOLE 20 MG CAP PO SCH (09:03)
[2016-06-30] MEDS: FLUTICASONE PROP 0.05% NASAL SPRAY 16 GM (FLONASE) SCH (09:04)
[2016-06-30] MEDS: VANCOMYCIN HCL 1,000 MG, VIAL MATE ADAPTER 1 EACH in D5W 250 ML IV SCH (09:04)
--- NOTE | 2016-06-30 10:17 | PHACANCOPD ---
PHARMACY VANCOMYCIN DOSING Pt Demographics Demographics Patient Age:86 , Weight:71.900 , Gender: male Adjusted Body Weight Events Past 24 Hours Events Past 24 Hours: NO: Change in CrCl, Dialysis, Diuretic Therapy, Elevation in WBC, Fever, Other, Pending Diagnostics, Pending Procedures Vancomycin Vancomycin indication: SEPSIS SECONDARY TO CAP Vancomycin Target Ranges: 15-20 mcg/ml Vancomycin Load Y/N: Yes Load Dose Date Time Vancomycin Load Dose: 1.5GM Date: 06/28/16 Time: 21:00 Vancomycin Dose Date: 06/30/16. Current Vancomycin Dose: [1250MG IV Q8H @1700] Date: 06/29/16. Current Vancomycin Dose: [1GM IV Q12H start 9AM] Intermittent Dosing?: No Labs Labs Item Value Date Time White Blood Count 5.9 K/mm3 06/28/16 0530 White Blood Count 5.2 K/mm3 06/29/16 0554 White Blood Count 5.1 K/mm3 06/30/16 0538 Creatinine 0.47 MG/DL L 06/28/16 0530 Creatinine 0.51 MG/DL L 06/29/16 0554 Creatinine 0.52 MG/DL L 06/30/16 0538 Vancomycin Level Trough 4.6 UG/ML L 06/30/16 0812 Blood Urea Nitrogen 7 MG/DL 06/28/16 0530 Blood Urea Nitrogen 5 MG/DL L 06/29/16 0554 Blood Urea Nitrogen 5 MG/DL L 06/30/16 0538 Micro Microbiology 06/25/16 Blood Culture - Final, Complete NO GROWTH AFTER 5 DAYS 06/29/16 Gram Stain - Final, Resulted 06/29/16 Sputum Culture - Preliminary, Resulted Yeast Like Organism 06/26/16 Gram Stain - Final, Complete 06/26/16 Sputum Culture - Final, Complete 06/26/16 MRSA Screen - Final, Complete 06/25/16 Respiratory Virus Panel (PCR) ([facility]) - Final, Complete 06/25/16 Influenza Virus Type A Antigen - Final, Complete 06/25/16 Influenza Virus Type B Antigen - Final, Complete Creatinine Clearance Date:06/28/16. Creatinine Clearance: [>50 ml/min]. Pending Labs VANCO TROUGH 07/01 @0800 Assessment and Plan Maintaining Current Dose?: No Reason for dose change: Trough too low Pharmacist Note Pharmacist Note Date: 06/30/16. Pharmacist note: Patients trough was subtherapeutic after a loading dose and 2 scheduled doses. Dosing was changed to 1250mg q8h with a trough scheduled to be drawn after 3 doses (07/01 @0800). Sputum C&S preliminary report shows gram positive cocci in chains and clusters. CrCl has been consistently good. Continue to monitor renal function and adjust dose as needed. Date: 06/28/16. Pharm.D. note: 86YO MALE, 72" in HEIGHT, 72KH in WEIGHT PRESENTING WITH SEPSIS SECONDARY TO CAP. HE HAS FAILED CEPHALOSPORIN/MACROLIDE IV TX. HOSPITALIST INITIATED ZOSYN 3.375GM IV Q6H 20:00, LEVAQUIN 750MG IV Q24H ( MidNIGHT) AND A REQUEST FOR VANCO TX WITH A GOAL TROUGH = 15-20 Mcg/ml. WE WILL GIVE HIM A VANCO 1.5GM LOAD OVER 2HRS STARTING AT 21:00 AND THEN CONTINUE WITH VANCO 1GM IV Q12H STARTING AT 9AM 06/29/16. A VANCO TROUGH WILL BE DRAWN WHEN HE IS AT STEADY STATE. YAMEL, Pharm.D. [facility] Jun 30, 2016 10:17
[2016-06-30] MEDS: FLUCONAZOLE 400 MG in APPROPRIATE DILUENT 1 EA IV SCH (11:06)
--- NOTE | 2016-06-30 16:32 | REP ---
CT study of the chest without contrast: History: Persistent high oxygen requirement and low grade fever. Comparison CT pulmonary angiogram is from 06/26/2016. Findings: There is a persistent infiltrate in the right upper lobe posteriorly associated with extensive air containing bolus changes throughout the right upper lobe. There is a little less confluent consolidation and there is some increase in volume and aeration in the involved right upper lobe region when compared with the 06/26/2016. The bullae and air cysts are a little larger and more numerous. The consolidation the right lower lobe noted recently has improved. There is however a small amount of right pleural fluid posteriorly associated with some parietal pleural thickening. There is some pleural calcific plaquing bilaterally. Very small quantity of left pleural fluid is noted today. This is a little more prominent than on the recent prior study of 06/26/2016. No new left-sided infiltrate is seen. No pericardial effusion is seen. Coronary artery vascular calcification is again noted. No adrenal lesion is seen. The visualized upper abdominal structures are unremarkable. Impression: Findings compatible with a necrotizing pneumonia right upper lobe with multiple bullae developing. Some decrease in consolidation in the interval since the 06/26/2006 study. Small bilateral pleural effusions more prominent today than on the prior exam, right greater than left. Signed by Esdras Miller MD 06/30/2016 04:48 P
[2016-06-30] MEDS: VANCOMYCIN HCL 1,250 MG in D5W 250 ML IV SCH (16:42)
--- NOTE | 2016-06-30 16:49 | IPNPDOC ---
Date Seen The patient was seen on 06/30/16. Progress Note Hospitalist Progress Note Subjective: Patient has no specific complaints. Objective: Physical Exam: Vitals: Vital Sign - Last 24 Hours 06/29/16 06/29/16 06/29/16 06/29/16 17:00 18:00 19:12 20:00 Temp 99.5 Pulse 88 Resp 18 B/P 126/75 Pulse Ox 93 94 94 O2 Delivery Nasal Cannula Nasal Cannula High Flow Cannula High Flow Mask O2 Flow Rate 8.0 8.0 8.0 8.0 06/29/16 06/29/16 06/29/16 06/29/16 20:00 21:00 22:00 23:00 Pulse Ox 92 93 88 88 O2 Delivery Nasal Cannula Nasal Cannula Nasal Cannula Nasal Cannula O2 Flow Rate 8.0 8.0 8.0 8.0 06/29/16 06/30/16 06/30/16 06/30/16 23:22 00:00 00:15 01:00 Temp 100.3 Pulse 85 Resp 18 B/P 141/77 Pulse Ox 91 90 90 O2 Delivery High Flow Cannula Nasal Cannula High Flow Mask Nasal Cannula O2 Flow Rate 8.0 8.0 8.0 8.0 06/30/16 06/30/16 06/30/16 06/30/16 02:00 03:00 03:12 04:00 Temp 100.2 Pulse 84 Resp 18 B/P 134/75 Pulse Ox 91 90 91 O2 Delivery Nasal Cannula Nasal Cannula Nasal Cannula O2 Flow Rate 8.0 8.0 8.0 06/30/16 06/30/16 06/30/16 06/30/16 05:00 06:00 07:00 07:51 Pulse Ox 90 91 90 O2 Delivery Nasal Cannula Nasal Cannula Nasal Cannula Nasal Cannula O2 Flow Rate 8.0 8.0 8.0 8.0 06/30/16 06/30/16 06/30/16 06/30/16 08:00 08:00 08:02 09:00 Temp 98.9 Pulse 89 Resp 18 B/P 114/62 Pulse Ox 94 94 94 90 O2 Delivery Nasal Cannula High Flow Cannula Nasal Cannula Nasal Cannula O2 Flow Rate 8.0 8.0 8.0 8.0 06/30/16 06/30/16 06/30/16 06/30/16 10:00 10:51 11:00 12:00 Pulse Ox 94 90 90 O2 Delivery Nasal Cannula Nasal Cannula Nasal Cannula Nasal Cannula O2 Flow Rate 8.0 8.0 8.0 8.0 06/30/16 06/30/16 06/30/16 06/30/16 12:00 13:00 14:00 15:00 Temp 99.4 Pulse 81 Resp 18 B/P 140/75 Pulse Ox 94 90 94 94 O2 Delivery High Flow Cannula Nasal Cannula Nasal Cannula Nasal Cannula O2 Flow Rate 8.0 8.0 8.0 8.0 06/30/16 06/30/16 16:00 16:00 Temp 99.2 Pulse 85 Resp 18 B/P 122/72 Pulse Ox 94 94 O2 Delivery High Flow Cannula Nasal Cannula O2 Flow Rate 8.0 8.0 General: Awake, alert, no acute distress HEENT: Normocephalic, atraumatic, extraocular movements intact CV: Regular rate and rhythm, no murmurs rubs or gallops Lungs: Clear to auscultation bilaterally except for mild crackles at bases, moving good air Abd: Soft, nontender, nondistended Extremities: No edema of the bilateral lower extremities Neuro: Very hard of hearing, but normal speech, alert and oriented Psych: Normal mood and affect Labs and Imaging: Laboratory Tests 06/30/16 05:38 Calcium Level 8.2 L, Red Blood Count 3.37 L, Mean Corpuscular Volume 97.7 H, Mean Corpuscular Hemoglobin 34.1 H, Mean Corpuscular Hemoglobin Concent 34.9, Red Cell Distribution Width 12.7 Assessment and Plan: 86-year-old male with hypertension, hyperlipidemia, GERD, remote history of bladder cancer, LINDSAY who presented with vomiting, cough, chills, and shortness of breath. He has been admitted with sepsis secondary to a right community- acquired pneumonia. 1. Sepsis secondary to a right community-acquired pneumonia: Patient is currently afebrile with a normal white count. However, he continues to require 8 L of oxygen. Chest x-ray and CT of the chest showed right upper lobe and right lower lobe pneumonias as well as a small right pleural effusion. Blood cultures are negative, and his initial sputum culture is currently growing normal tarun. Although his lungs sound surprisingly good, he has continued to have a high O2 requirement, so on 06/28/16, we broadened his coverage from azithromycin and Rocephin to vanc/levaquin/zosyn. Repeat sputum culture shows yeast, so I will start some diflucan. Recheck CT chest today. If no improvement tomorrow, will seek pulmonary consult. 2. Hypertension: Blood pressure upon admission was fairly soft. BP has now improved, but we are still holding his home metoprolol. 3. Hyperlipidemia: Continue home statin. 4. GERD: Continue home PPI. 5. LINDSAY: Patient needs refitting of his mask as an outpatient. He is currently on continuous pulse ox in the PCU. DVT prophylaxis: Heparin Dispo: at this time, the patient's prognosis continues to be guarded and he will need to remain in the PCU for close monitoring. VS, I&O, 24H, [facility] Vital Signs/I&O Vital Signs Date Time Temp Pulse Resp B/P Pulse Ox O2 Delivery O2 Flow Rate FiO2 06/30/16 16:00 94 Nasal Cannula 8.0 06/30/16 16:00 99.2 85 18 122/72 I&O- Last 24 Hours up to 6 AM 06/30/16 05:59 Intake Total 3240 ml Output Total 725 ml Balance 2515 ml Laboratory Data 24H LABS Laboratory Tests 2 06/30/16 05:38: Anion Gap 8, C-Reactive Protein, Quantitative 9.01H, Blood Urea Nitrogen 5L, Creatinine 0.52L, Sodium Level 140, Potassium Level 3.5, Chloride Level 104, Carbon Dioxide Level 28, Calcium Level 8.2L, Glomerular Filtration Rate > 60.0, Magnesium Level 2.0 06/30/16 08:12: Vancomycin Level Trough 4.6L CBC/BMP Laboratory Tests 06/30/16 05:38 Calcium Level 8.2 L, Red Blood Count 3.37 L, Mean Corpuscular Volume 97.7 H, Mean Corpuscular Hemoglobin 34.1 H, Mean Corpuscular Hemoglobin Concent 34.9, Red Cell Distribution Width 12.7 Microbiology Microbiology 06/25/16 Blood Culture - Final, Complete NO GROWTH AFTER 5 DAYS 06/29/16 Gram Stain - Final, Resulted 06/29/16 Sputum Culture - Preliminary, Resulted Yeast Like Organism 06/26/16 Gram Stain - Final, Complete 06/26/16 Sputum Culture - Final, Complete 06/26/16 MRSA Screen - Final, Complete 06/25/16 Respiratory Virus Panel (PCR) ([facility]) - Final, Complete 06/25/16 Influenza Virus Type A Antigen - Final, Complete 06/25/16 Influenza Virus Type B Antigen - Final, Complete DIONNE JALLOH Jun 30, 2016 16:49
[2016-06-30] MEDS ORDERED: FUROSEMIDE 40 MG/4 ML VIAL (J1940) IV ONE (17:00)
[2016-06-30] MEDS: SIMVASTATIN 10 MG TAB PO SCH (21:05)
[2016-07-01] VITALS (11 sets, daily range): BP systolic 108–116; BP diastolic 57–67; O2SAT 85–96
[2016-07-01] MEDS: LevoFLOXacin IV 750 MG in APPROPRIATE DILUENT 1 EA IV SCH ×2
[2016-07-01] MEDS: VANCOMYCIN HCL 1,250 MG in D5W 250 ML IV SCH (02:04)
[2016-07-01] MEDS: PIPERACILLIN/TAZOBACTAM SOD 3.375 GM in D5W MINI-BAG PLUS 50 ML IV SCH ×4 (03:12→20:32)
[2016-07-01] MEDS: SLF 3 ML SYR IV SCH ×3 (05:45→21:30)
[2016-07-01] MEDS: HEPARIN SOD (PORCINE) 5000 UNITS/ML VIAL SC SCH ×3 (05:46→21:30)
[2016-07-01 06:09] LABS: MEAN CORPUSCULAR HEMOGLOBIN 33.4 pg (27.0-33.0); MEAN CORPUSCULAR HGB CONC 34.8 g/dl (32.0-36.5); MEAN CORPUSCULAR VOLUME 95.8 fl (80.0-96.0); RED CELL DISTRIBUTION WIDTH 12.7 % (11.5-14.5); WHITE BLOOD COUNT 5.4 K/mm3 (4.0-10.0)
[2016-07-01 06:22] LABS: ANION GAP 6 MEQ/L (8-16); BLOOD UREA NITROGEN 8 MG/DL (7-18); CALCIUM LEVEL 8.6 MG/DL (8.8-10.2); CARBON DIOXIDE LEVEL 32 MEQ/L (21-32); CHLORIDE LEVEL 102 MEQ/L (98-107); CREATININE FOR GFR 0.92 MG/DL (0.70-1.30); GLUCOSE, FASTING 110 MG/DL (83-110); POTASSIUM SERUM 3.2 MEQ/L (3.5-5.1); SODIUM LEVEL 140 MEQ/L (136-145)
[2016-07-01 06:34] LABS: GLOMERULAR FILTRATION RATE > 60.0 (>35)
[2016-07-01] MEDS: LACTOBACILLUS ACIDOPHILUS CAP (BACID) PO SCH ×2 (08:50→21:29)
[2016-07-01] MEDS: OMEPRAZOLE 20 MG CAP PO SCH (08:50)
[2016-07-01] MEDS: FLUTICASONE PROP 0.05% NASAL SPRAY 16 GM (FLONASE) SCH (08:50)
[2016-07-01] MEDS: MECLIZINE 25 MG TABLET PO SCH ×2 (08:50→21:29)
[2016-07-01] MEDS: POTASSIUM CHLORIDE 10 MEQ SR TABLET PO SCH ×2 (08:50→14:51)
[2016-07-01] MEDS: ASPIRIN 81 MG ENTERIC TAB PO SCH (08:50)
[2016-07-01] MEDS: FLUCONAZOLE 400 MG in APPROPRIATE DILUENT 1 EA IV SCH (10:00)
--- NOTE | 2016-07-01 14:45 | IPNPDOC ---
Date Seen The patient was seen on 07/01/16. Progress Note Hospitalist Progress Note Subjective: Patient has no specific complaints, feels well Objective: Physical Exam: Vitals: Vital Sign - Last 24 Hours 06/30/16 06/30/16 06/30/16 06/30/16 15:00 16:00 16:00 17:11 Temp 99.2 Pulse 85 Resp 18 B/P 122/72 Pulse Ox 94 94 94 96 O2 Delivery Nasal Cannula High Flow Cannula Nasal Cannula Nasal Cannula O2 Flow Rate 8.0 8.0 8.0 8.0 06/30/16 06/30/16 06/30/16 06/30/16 18:14 20:00 20:00 20:15 Temp 98.7 Pulse 83 Resp 20 B/P 129/67 Pulse Ox 90 88 92 O2 Delivery Nasal Cannula Room Air High Flow Cannula Nasal Cannula O2 Flow Rate 8.0 8.0 8.0 06/30/16 06/30/16 06/30/16 06/30/16 21:00 22:00 23:00 23:59 Temp 99.8 Pulse 105 Resp 18 B/P 120/53 Pulse Ox 92 91 86 90 O2 Delivery Nasal Cannula Nasal Cannula Room Air High Flow Cannula O2 Flow Rate 8.0 8.0 8.0 07/01/16 07/01/16 07/01/16 07/01/16 00:00 01:00 02:00 04:00 Temp 99.4 Pulse 96 Resp 18 B/P 108/57 Pulse Ox 90 86 94 91 O2 Delivery Nasal Cannula Room Air Nasal Cannula High Flow Cannula O2 Flow Rate 8.0 8.0 8.0 07/01/16 07/01/16 07/01/16 08:00 08:00 08:52 Temp 99.0 Pulse 98 Resp 18 B/P 111/67 Pulse Ox 96 96 O2 Delivery High Flow Cannula Nasal Cannula Nasal Cannula O2 Flow Rate 8.0 8.0 8.0 General: Awake, alert, no acute distress HEENT: Normocephalic, atraumatic, extraocular movements intact CV: Regular rate and rhythm, no murmurs rubs or gallops Lungs: Clear to auscultation bilaterally, moving good air Abd: Soft, nontender, nondistended Extremities: No edema of the bilateral lower extremities Neuro: Very hard of hearing, but normal speech, alert and oriented Psych: Normal mood and affect Labs and Imaging: Laboratory Tests 07/01/16 05:48 Calcium Level 8.6 L, Red Blood Count 3.51 L, Mean Corpuscular Volume 95.8, Mean Corpuscular Hemoglobin 33.4 H, Mean Corpuscular Hemoglobin Concent 34.8, Red Cell Distribution Width 12.7 Assessment and Plan: 86-year-old male with hypertension, hyperlipidemia, GERD, remote history of bladder cancer, LINDSAY who presented with vomiting, cough, chills, and shortness of breath. He has been admitted with sepsis secondary to a right community- acquired pneumonia. 1. Sepsis secondary to a right community-acquired pneumonia: Patient is currently afebrile with a normal white count. However, he continues to require 8 L of oxygen. Initial chest x-ray and CT of the chest showed right upper lobe and right lower lobe pneumonias as well as a small right pleural effusion. Blood cultures are negative, and his initial sputum culture is currently growing normal tarun. Although his lungs sound surprisingly good, he has continued to have a high O2 requirement, so on 06/28/16, we broadened his coverage from azithromycin and Rocephin to vanc/levaquin/zosyn. Repeat sputum culture shows yeast, so I added some diflucan. Repeat CT chest on 06/30 showed necrotizing RUL PNA with multiple bullae. I reviewed the images and case with Dr. Leos today, and he feels that there is nothing that needs drainage at this time. He recommends continuing the current course and notes that it will likely just take a very long time to improve. He also notes evidence on the images of underlying lung disease, and states that the patient may have to go home with O2. 2. Hypertension: Blood pressure upon admission was fairly soft. BP has now improved, but we are still holding his home metoprolol. 3. Hyperlipidemia: Continue home statin. 4. GERD: Continue home PPI. 5. LINDSAY: Patient needs refitting of his mask as an outpatient. He is currently on continuous pulse ox in the PCU. DVT prophylaxis: Heparin Dispo: at this time, the patient's prognosis continues to be guarded and he will need to remain in the PCU for close monitoring. VS, I&O, 24H, Fishbone Vital Signs/I&O Vital Signs Date Time Temp Pulse Resp B/P Pulse Ox O2 Delivery O2 Flow Rate FiO2 4/21/17 08:52 Nasal Cannula 8.0 07/01/16 08:00 96 07/01/16 08:00 99.0 98 18 111/67 I&O- Last 24 Hours up to 6 AM 07/01/16 05:59 Intake Total 1284 ml Output Total 3445 ml Balance -2161 ml Laboratory Data 24H LABS Laboratory Tests 2 07/01/16 05:48: Anion Gap 6L, C-Reactive Protein, Quantitative 9.54H, Blood Urea Nitrogen 8#, Creatinine 0.92#, Sodium Level 140, Potassium Level 3.2L, Chloride Level 102, Carbon Dioxide Level 32, Calcium Level 8.6L, Glomerular Filtration Rate > 60.0, Magnesium Level 2.0 07/01/16 07:54: Vancomycin Level Trough 23.4H CBC/BMP Laboratory Tests 07/01/16 05:48 Calcium Level 8.6 L, Red Blood Count 3.51 L, Mean Corpuscular Volume 95.8, Mean Corpuscular Hemoglobin 33.4 H, Mean Corpuscular Hemoglobin Concent 34.8, Red Cell Distribution Width 12.7 Microbiology Microbiology 06/25/16 Blood Culture - Final, Complete NO GROWTH AFTER 5 DAYS 06/29/16 Gram Stain - Final, Complete 06/29/16 Sputum Culture - Final, Complete Yeast Like Organism 06/26/16 Gram Stain - Final, Complete 06/26/16 Sputum Culture - Final, Complete 06/26/16 MRSA Screen - Final, Complete 06/25/16 Respiratory Virus Panel (PCR) ([facility]) - Final, Complete 06/25/16 Influenza Virus Type A Antigen - Final, Complete 06/25/16 Influenza Virus Type B Antigen - Final, Complete DIONNE JALLOH Jul 01, 2016 14:45
--- NOTE | 2016-07-01 14:45 | PHACANCOPD ---
PHARMACY VANCOMYCIN DOSING Pt Demographics Demographics Patient Age:86 , Weight:69.600 , Gender: male Adjusted Body Weight Events Past 24 Hours Events Past 24 Hours: YES: Change in CrCl, Fever, NO: Dialysis, Diuretic Therapy, Elevation in WBC, Other, Pending Diagnostics , Pending Procedures Vancomycin Vancomycin indication: SEPSIS SECONDARY TO CAP Vancomycin Target Ranges: 15-20 mcg/ml Vancomycin Load Y/N: Yes Load Dose Date Time Vancomycin Load Dose: 1.5GM Date: 06/28/16 Time: 21:00 Vancomycin Dose Date: 07/01/16. Current Vancomycin Dose: [750mg IV q8h @14] Date: 06/30/16. Current Vancomycin Dose: [1250MG IV Q8H @1700] Date: 06/29/16. Current Vancomycin Dose: [1GM IV Q12H start 9AM] Intermittent Dosing?: No Labs Labs Item Value Date Time Vancomycin Level Trough 4.6 UG/ML L 06/30/16 0812 Vancomycin Level Trough 23.4 UG/ML H 07/01/16 0754 Creatinine 0.51 MG/DL L 06/29/16 0554 Creatinine 0.52 MG/DL L 06/30/16 0538 Creatinine 0.92 MG/DL # 07/01/16 0548 White Blood Count 5.2 K/mm3 06/29/16 0554 White Blood Count 5.1 K/mm3 06/30/16 0538 White Blood Count 5.4 K/mm3 07/01/16 0548 C-Reactive Protein, Quantitative 9.01 MG/DL H 06/30/16 0538 C-Reactive Protein, Quantitative 9.54 MG/DL H 07/01/16 0548 Vital Signs Label Value Date Time Patient Temperature 99.4 degrees F 07/01/16 0400 Temperature Source Temporal 07/01/16 0400 Patient Temperature 99.0 degrees F 07/01/16 0800 Temperature Source Temporal 07/01/16 0800 Micro Microbiology 06/25/16 Blood Culture - Final, Complete NO GROWTH AFTER 5 DAYS 06/29/16 Gram Stain - Final, Complete 06/29/16 Sputum Culture - Final, Complete Yeast Like Organism 06/26/16 Gram Stain - Final, Complete 06/26/16 Sputum Culture - Final, Complete 06/26/16 MRSA Screen - Final, Complete 06/25/16 Respiratory Virus Panel (PCR) ([facility]) - Final, Complete 06/25/16 Influenza Virus Type A Antigen - Final, Complete 06/25/16 Influenza Virus Type B Antigen - Final, Complete Creatinine Clearance Date:06/28/16. Creatinine Clearance: [>50 ml/min]. Pending Labs VANCO TROUGH 07/01 @0800 Assessment and Plan Maintaining Current Dose?: No Reason for dose change: Change in serum Cr, Trough too high Pharmacist Note Pharmacist Note Date: 07/01/16. Pharmacist note: vanco trough was drawn ~1 hr before the dose and came back at 23.4. SCr has significantly increased today. I changed his dosing to 750mg IV q8h. He continues on Zosyn, Levaquin and Fluconazole in addition to the vanco. MRSA screen is negative, sputum culture shows yeast and normal tarun. I will continue to monitor renal function over the weekend. Date: 06/30/16. Pharmacist note: Patients trough was subtherapeutic after a loading dose and 2 scheduled doses. Dosing was changed to 1250mg q8h with a trough scheduled to be drawn after 3 doses (07/01 @0800). Sputum C&S preliminary report shows gram positive cocci in chains and clusters. CrCl has been consistently good. Continue to monitor renal function and adjust dose as needed. Date: 06/28/16. Pharm.D. note: 86YO MALE, 72" in HEIGHT, 72KH in WEIGHT PRESENTING WITH SEPSIS SECONDARY TO CAP. HE HAS FAILED CEPHALOSPORIN/MACROLIDE IV TX. HOSPITALIST INITIATED ZOSYN 3.375GM IV Q6H 20:00, LEVAQUIN 750MG IV Q24H ( MidNIGHT) AND A REQUEST FOR VANCO TX WITH A GOAL TROUGH = 15-20 Mcg/ml. WE WILL GIVE HIM A VANCO 1.5GM LOAD OVER 2HRS STARTING AT 21:00 AND THEN CONTINUE WITH VANCO 1GM IV Q12H STARTING AT 9AM 06/29/16. A VANCO TROUGH WILL BE DRAWN WHEN HE IS AT STEADY STATE. Fideilna MONTESINOS.Bren. Joseph Granados Pharm.D. Jul 01, 2016 14:45
[2016-07-01] MEDS: VANCOMYCIN HCL 750 MG, VIAL MATE ADAPTER 1 EACH in D5W 250 ML IV SCH ×2 (15:00→22:13)
[2016-07-01] MEDS: SIMVASTATIN 10 MG TAB PO SCH (21:29)
[2016-07-02] VITALS (14 sets, daily range): BP systolic 118–138; BP diastolic 52–72; O2SAT 89–97
[2016-07-02] MEDS: LevoFLOXacin IV 750 MG in APPROPRIATE DILUENT 1 EA IV SCH (00:21)
[2016-07-02] MEDS: PIPERACILLIN/TAZOBACTAM SOD 3.375 GM in D5W MINI-BAG PLUS 50 ML IV SCH ×4 (02:03→20:38)
[2016-07-02] MEDS: VANCOMYCIN HCL 750 MG, VIAL MATE ADAPTER 1 EACH in D5W 250 ML IV SCH (05:31)
[2016-07-02] MEDS: HEPARIN SOD (PORCINE) 5000 UNITS/ML VIAL SC SCH ×3 (05:32→21:55)
[2016-07-02] MEDS: SLF 3 ML SYR IV SCH ×3 (05:32→21:55)
[2016-07-02 05:35] LABS: CALCIUM LEVEL 8.6 MG/DL (8.8-10.2); CREATININE FOR GFR 1.23 MG/DL (0.70-1.30); GLOMERULAR FILTRATION RATE 59.1 (>35); MEAN CORPUSCULAR HEMOGLOBIN 33.5 pg (27.0-33.0); MEAN CORPUSCULAR HGB CONC 33.8 g/dl (32.0-36.5); MEAN CORPUSCULAR VOLUME 99.1 fl (80.0-96.0); POTASSIUM SERUM 3.5 MEQ/L (3.5-5.1); RED CELL DISTRIBUTION WIDTH 12.8 % (11.5-14.5); WHITE BLOOD COUNT 5.6 K/mm3 (4.0-10.0)
[2016-07-02] MEDS: FLUTICASONE PROP 0.05% NASAL SPRAY 16 GM (FLONASE) SCH (08:20)
[2016-07-02] MEDS: OMEPRAZOLE 20 MG CAP PO SCH (08:20)
[2016-07-02] MEDS: LACTOBACILLUS ACIDOPHILUS CAP (BACID) PO SCH ×2 (08:20→21:20)
[2016-07-02] MEDS: MECLIZINE 25 MG TABLET PO SCH ×2 (08:20→21:20)
[2016-07-02] MEDS: ASPIRIN 81 MG ENTERIC TAB PO SCH (08:20)
[2016-07-02] MEDS: FLUCONAZOLE 400 MG in APPROPRIATE DILUENT 1 EA IV SCH (09:42)
--- NOTE | 2016-07-02 13:54 | IPNPDOC ---
Date Seen The patient was seen on 07/02/16. Progress Note Hospitalist Progress Note Subjective: Patient has no specific complaints, feels well and breathing well Objective: Physical Exam: Vitals: Vital Sign - Last 24 Hours 07/01/16 07/01/16 07/01/16 07/01/16 16:00 16:00 20:00 20:00 Temp 98.6 98.3 Pulse 92 84 Resp 18 18 B/P 110/60 114/61 Pulse Ox 96 96 94 96 O2 Delivery High Flow Cannula Nasal Cannula Nasal Cannula High Flow Cannula O2 Flow Rate 8.0 8.0 8.0 8.0 07/01/16 07/01/16 07/01/16 07/01/16 20:00 21:00 22:00 23:00 Pulse Ox 94 85 87 O2 Delivery Nasal Cannula Nasal Cannula Nasal Cannula Nasal Cannula O2 Flow Rate 8.0 8.0 8.0 8.0 07/02/16 07/02/16 07/02/16 07/02/16 00:00 00:00 01:00 02:00 Temp 98.9 Pulse 85 Resp 20 B/P 132/69 Pulse Ox 90 90 95 95 O2 Delivery Nasal Cannula High Flow Cannula Nasal Cannula Nasal Cannula O2 Flow Rate 8.0 8.0 8.0 8.0 07/02/16 07/02/16 07/02/16 07/02/16 03:00 04:00 04:00 05:00 Temp 99.2 Pulse 79 Resp 20 B/P 138/72 Pulse Ox 95 94 92 89 O2 Delivery Nasal Cannula Nasal Cannula High Flow Cannula Nasal Cannula O2 Flow Rate 8.0 8.0 8.0 8.0 07/02/16 07/02/16 07/02/16 08:00 08:00 12:00 Temp 97.8 97.0 Pulse 96 81 Resp 18 18 B/P 120/56 130/52 Pulse Ox 96 96 O2 Delivery High Flow Cannula Nasal Cannula High Flow Cannula O2 Flow Rate 8.0 8.0 8.0 General: Awake, alert, no acute distress HEENT: Normocephalic, atraumatic, extraocular movements intact CV: Regular rate and rhythm Lungs: Clear to auscultation bilaterally Abd: Soft, nontender, nondistended Extremities: No edema of the bilateral lower extremities Neuro: Very hard of hearing, but normal speech, alert and oriented Psych: Normal mood and affect Labs and Imaging: Laboratory Tests 07/02/16 04:35 Calcium Level 8.6 L, Red Blood Count 3.39 L, Mean Corpuscular Volume 99.1 H, Mean Corpuscular Hemoglobin 33.5 H, Mean Corpuscular Hemoglobin Concent 33.8, Red Cell Distribution Width 12.8 Assessment and Plan: 86-year-old male with hypertension, hyperlipidemia, GERD, remote history of bladder cancer, LINDSAY who presented with vomiting, cough, chills, and shortness of breath. He has been admitted with sepsis secondary to a right community- acquired pneumonia. 1. Sepsis secondary to a right community-acquired pneumonia: Patient is currently afebrile with a normal white count. However, he continues to require 8 L of oxygen. Initial chest x-ray and CT of the chest showed right upper lobe and right lower lobe pneumonias as well as a small right pleural effusion. Blood cultures are negative, and his initial sputum culture is currently growing normal tarun. Although his lungs sound surprisingly good, he has continued to have a high O2 requirement, so on 06/28/16, we broadened his coverage from azithromycin and Rocephin to vanc/levaquin/zosyn. Repeat sputum culture shows yeast, so I added some diflucan. Repeat CT chest on 06/30 showed necrotizing RUL PNA with multiple bullae. I reviewed the images and case with Dr. Leos, and he feels that there is nothing that needs drainage at this time. He recommends continuing the current course and notes that it will likely just take a very long time to improve. He also notes evidence on the images of underlying lung disease, and states that the patient may have to go home with O2. 2. Hypertension: Blood pressure upon admission was fairly soft. BP has now improved, but we are still holding his home metoprolol. 3. Hyperlipidemia: Continue home statin. 4. GERD: Continue home PPI. 5. LINDSAY: Patient needs refitting of his mask as an outpatient. He is currently on continuous pulse ox in the PCU. 6. Iatrogenic pulmonary edema: Patient is quite volume up secondary to the IVF he received here. He received one dose of IV lasix and diuresed well, but Cr bumped. Will hold off on further diuresis until kidney function improves since he is clinically well appearing. DVT prophylaxis: Heparin Dispo: at this time, the patient's prognosis continues to be guarded and he will need to remain in the PCU for close monitoring. Per patient's request, I have called daughter Shana Vanegas and updated her on his condition. [phone]. VS, I&O, 24H, Fishbone Vital Signs/I&O Vital Signs Date Time Temp Pulse Resp B/P Pulse Ox O2 Delivery O2 Flow Rate FiO2 07/02/16 12:00 97.0 81 18 130/52 96 High Flow Cannula 8.0 I&O- Last 24 Hours up to 6 AM 07/02/16 06:00 Intake Total 1860 ml Output Total 1650 ml Balance 210 ml Laboratory Data 24H LABS Laboratory Tests 2 07/02/16 04:35: Anion Gap 7L, C-Reactive Protein, Quantitative 7.89H, Blood Urea Nitrogen 10, Creatinine 1.23, Sodium Level 141, Potassium Level 3.5, Chloride Level 103, Carbon Dioxide Level 31, Calcium Level 8.6L, Glomerular Filtration Rate 59.1, Magnesium Level 2.0 CBC/BMP Laboratory Tests 07/02/16 04:35 Calcium Level 8.6 L, Red Blood Count 3.39 L, Mean Corpuscular Volume 99.1 H, Mean Corpuscular Hemoglobin 33.5 H, Mean Corpuscular Hemoglobin Concent 33.8, Red Cell Distribution Width 12.8 Microbiology Microbiology 06/25/16 Blood Culture - Final, Complete NO GROWTH AFTER 5 DAYS 06/29/16 Gram Stain - Final, Complete 06/29/16 Sputum Culture - Final, Complete Yeast Like Organism 06/26/16 Gram Stain - Final, Complete 06/26/16 Sputum Culture - Final, Complete 06/26/16 MRSA Screen - Final, Complete 06/25/16 Respiratory Virus Panel (PCR) ([facility]) - Final, Complete 06/25/16 Influenza Virus Type A Antigen - Final, Complete 06/25/16 Influenza Virus Type B Antigen - Final, Complete DIONNE JALLOH Jul 02, 2016 13:54
[2016-07-02] MEDS ORDERED: VANCOMYCIN HCL 1,000 MG, VIAL MATE ADAPTER 1 EACH in D5W 250 ML IV SCH (21:00)
[2016-07-02] MEDS: SIMVASTATIN 10 MG TAB PO SCH (21:20)
[2016-07-02] MEDS: ACETAMINOPHEN TAB 650MG DOSE (2X325MG) PO PRN (21:23)
[2016-07-03] VITALS (12 sets, daily range): BP systolic 106–151; BP diastolic 52–78; O2SAT 92–97
[2016-07-03] MEDS: LevoFLOXacin IV 750 MG in APPROPRIATE DILUENT 1 EA IV SCH (00:35)
[2016-07-03] MEDS: PIPERACILLIN/TAZOBACTAM SOD 3.375 GM in D5W MINI-BAG PLUS 50 ML IV SCH ×2 (02:12→08:38)
[2016-07-03] MEDS: HEPARIN SOD (PORCINE) 5000 UNITS/ML VIAL SC SCH ×3 (06:18→20:53)
[2016-07-03] MEDS: SLF 3 ML SYR IV SCH ×3 (06:18→20:54)
[2016-07-03 06:44] LABS: BASO % 0.2 % (0.0-1.0); EOS # 0.1 K/mm3 (0.0-0.50); EOS % 0.9 % (0.0-3.0); LARGE UNSTAINED CELL # 0.1 K/mm3 (0.0-0.4); LYMPH # 0.6 K/mm3 (1.5-4.5); MEAN CORPUSCULAR HEMOGLOBIN 33.4 pg (27.0-33.0); MEAN CORPUSCULAR HGB CONC 33.9 g/dl (32.0-36.5); MEAN CORPUSCULAR VOLUME 98.7 fl (80.0-96.0); MONO # 0.5 K/mm3 (0.0-0.8); MONO % 8.4 % (0.0-5.0); NEUTROPHILS % 78.5 % (36.0-66.0); PLATELET COUNT, AUTOMATED 233 k/mm3 (150-450); RED CELL DISTRIBUTION WIDTH 12.7 % (11.5-14.5); WHITE BLOOD COUNT 6.4 K/mm3 (4.0-10.0)
[2016-07-03 07:00] LABS: CALCIUM LEVEL 8.8 MG/DL (8.8-10.2); CREATININE FOR GFR 1.27 MG/DL (0.70-1.30); POTASSIUM SERUM 3.4 MEQ/L (3.5-5.1)
[2016-07-03] MEDS: MECLIZINE 25 MG TABLET PO SCH ×2 (08:38→20:53)
[2016-07-03] MEDS: OMEPRAZOLE 20 MG CAP PO SCH (08:38)
[2016-07-03] MEDS: ASPIRIN 81 MG ENTERIC TAB PO SCH (08:38)
[2016-07-03] MEDS: LACTOBACILLUS ACIDOPHILUS CAP (BACID) PO SCH ×2 (08:38→20:53)
[2016-07-03] MEDS ORDERED: POTASSIUM CHLORIDE 10 MEQ SR TABLET PO ONE (09:00)
[2016-07-03] MEDS: FLUCONAZOLE 400 MG in APPROPRIATE DILUENT 1 EA IV SCH (10:15)
[2016-07-03] MEDS: FLUTICASONE PROP 0.05% NASAL SPRAY 16 GM (FLONASE) SCH (10:15)
--- NOTE | 2016-07-03 10:46 | IPNPDOC ---
Date Seen The patient was seen on 07/03/16. Progress Note Hospitalist Progress Note Subjective: Patient reports pain on in the inner aspect of right foot, particularly when he walks; he is also very concerned about his difficulty using a urinal and consequently wetting his bed Objective: Physical Exam: Vitals: Vital Sign - Last 24 Hours 07/02/16 07/02/16 07/02/16 07/02/16 12:00 15:30 20:00 20:00 Temp 97.0 99.2 99.3 Pulse 81 79 94 Resp 18 18 20 B/P 130/52 128/56 118/64 Pulse Ox 96 92 97 97 O2 Delivery High Flow Cannula High Flow Cannula High Flow Cannula Nasal Cannula O2 Flow Rate 8.0 8.0 8.0 8.0 07/02/16 07/02/16 07/02/16 07/02/16 20:00 21:00 22:00 23:00 Pulse Ox 97 93 94 O2 Delivery Nasal Cannula Nasal Cannula Nasal Cannula Nasal Cannula O2 Flow Rate 8.0 8.0 8.0 8.0 07/02/16 07/03/16 07/03/16 07/03/16 23:59 00:00 01:00 02:00 Temp 98.3 Pulse 95 Resp 20 B/P 135/71 Pulse Ox 91 97 94 94 O2 Delivery High Flow Cannula Nasal Cannula Nasal Cannula Nasal Cannula O2 Flow Rate 8.0 8.0 8.0 8.0 07/03/16 07/03/16 07/03/16 07/03/16 03:00 04:00 04:00 04:00 Temp 98.6 Pulse 89 Resp 20 B/P 129/74 Pulse Ox 92 97 91 O2 Delivery Nasal Cannula Nasal Cannula Nasal Cannula High Flow Cannula O2 Flow Rate 8.0 8.0 8.0 8.0 07/03/16 07/03/16 07:42 08:00 Temp 98.2 Pulse 93 Resp 20 B/P 111/71 Pulse Ox 96 O2 Delivery Nasal Cannula High Flow Cannula O2 Flow Rate 8.0 8.0 General: Awake, alert, no acute distress HEENT: Normocephalic, atraumatic, extraocular movements intact CV: Regular rate and rhythm Lungs: Clear to auscultation bilaterally, no wheeze Abd: Soft, nontender, nondistended Extremities: No edema of the bilateral lower extremities, point TTP of medial right foot at the arch Neuro: Very hard of hearing, but normal speech, alert and oriented Psych: Normal mood and affect Labs and Imaging: Laboratory Tests 07/03/16 04:30 Calcium Level 8.8, Red Blood Count 3.37 L, Mean Corpuscular Volume 98.7 H, Mean Corpuscular Hemoglobin 33.4 H, Mean Corpuscular Hemoglobin Concent 33.9, Red Cell Distribution Width 12.7, Neutrophils (%) (Auto) 78.5 H, Lymphocytes (%) ( Auto) 10.0 L, Monocytes (%) (Auto) 8.4 H, Eosinophils (%) (Auto) 0.9, Basophils (%) (Auto) 0.2, Neutrophils # (Auto) 5.0, Lymphocytes # (Auto) 0.6 L, Monocytes # (Auto) 0.5, Eosinophils # (Auto) 0.1, Basophils # (Auto) 0.0 Assessment and Plan: 86-year-old male with hypertension, hyperlipidemia, GERD, remote history of bladder cancer, LINDSAY who presented with vomiting, cough, chills, and shortness of breath. He has been admitted with sepsis secondary to a right community- acquired pneumonia. 1. Sepsis secondary to a right community-acquired pneumonia: Patient is currently afebrile with a normal white count. However, he continues to require 8 L of oxygen. Initial chest x-ray and CT of the chest showed right upper lobe and right lower lobe pneumonias as well as a small right pleural effusion. Blood cultures are negative, and his initial sputum culture is currently growing normal tarun. Although his lungs sound surprisingly good, he has continued to have a high O2 requirement, so on 06/28/16, we broadened his coverage from azithromycin and Rocephin to vanc/levaquin/zosyn. Repeat sputum culture shows yeast, so I added some diflucan. Repeat CT chest on 06/30 showed necrotizing RUL PNA with multiple bullae. I reviewed the images and case with Dr. Leos, and he feels that there is nothing that needs drainage at this time. He notes that it will likely just take a very long time to improve. He also notes evidence on the images of underlying lung disease, and states that the patient may have to go home with O2. At this time, the patient has received 5 days worth of vanc/levaquin/zosyn so we will transition him to PO levaquin and augmentin. Still requiring 8L O2. 2. Hypertension: Blood pressure upon admission was fairly soft. BP has now improved, but we are still holding his home metoprolol. 3. Hyperlipidemia: Continue home statin. 4. GERD: Continue home PPI. 5. LINDSAY: Patient needs refitting of his mask as an outpatient. He is currently on continuous pulse ox in the PCU. 6. Iatrogenic pulmonary edema: Patient is quite volume up secondary to the IVF he received here. He received one dose of IV lasix and diuresed well, but Cr bumped. Will hold off on further diuresis until kidney function improves since he is clinically well appearing. 7. ADENIKE: Cr was entirely normal prior to lasix and changing to vanc/levaquin/ zosyn. Cr has now trended up to 1.27. We are stopping the vanc and zosyn today , and will try to hold off on diuresing him further until his DAENIKE improves. 8. Right foot pain: Patient reports TTP and pain with walking. Will check plain films. 9. Hypokalemia: replacing DVT prophylaxis: Heparin Dispo: at this time, the patient's prognosis continues to be guarded and he will need to remain in the PCU for close monitoring. VS, I&O, 24H, Hermanbone Vital Signs/I&O Vital Signs Date Time Temp Pulse Resp B/P Pulse Ox O2 Delivery O2 Flow Rate FiO2 07/03/16 08:00 98.2 93 20 111/71 96 High Flow Cannula 8.0 I&O- Last 24 Hours up to 6 AM 07/03/16 05:59 Intake Total 2230 ml Output Total 1360 ml Balance 870 ml Laboratory Data 24H LABS Laboratory Tests 2 07/03/16 04:30: Anion Gap 7L, White Blood Count 6.4, Red Blood Count 3.37L, Hemoglobin 11.3L, Hematocrit 33.3L, Mean Corpuscular Volume 98.7H, Mean Corpuscular Hemoglobin 33.4H, Mean Corpuscular Hemoglobin Concent 33.9, Red Cell Distribution Width 12.7, Platelet Count 233, Neutrophils (%) (Auto) 78.5H, Lymphocytes (%) (Auto) 10.0L, Monocytes (%) (Auto) 8.4H, Eosinophils (%) (Auto) 0.9, Basophils (%) ( Auto) 0.2, Neutrophils # (Auto) 5.0, Lymphocytes # (Auto) 0.6L, Monocytes # ( Auto) 0.5, Eosinophils # (Auto) 0.1, Basophils # (Auto) 0.0, C-Reactive Protein , Quantitative 7.63H, Blood Urea Nitrogen 10, Creatinine 1.27, Sodium Level 140 , Potassium Level 3.4L, Chloride Level 102, Carbon Dioxide Level 31, Calcium Level 8.8, Glomerular Filtration Rate 57.0, Large Unclassified Cells # 0.1, Large Unclassified Cells % 2.0, Magnesium Level 2.0 07/03/16 08:13: Vancomycin Level Trough 21.7H CBC/BMP Laboratory Tests 07/03/16 04:30 Calcium Level 8.8, Red Blood Count 3.37 L, Mean Corpuscular Volume 98.7 H, Mean Corpuscular Hemoglobin 33.4 H, Mean Corpuscular Hemoglobin Concent 33.9, Red Cell Distribution Width 12.7, Neutrophils (%) (Auto) 78.5 H, Lymphocytes (%) ( Auto) 10.0 L, Monocytes (%) (Auto) 8.4 H, Eosinophils (%) (Auto) 0.9, Basophils (%) (Auto) 0.2, Neutrophils # (Auto) 5.0, Lymphocytes # (Auto) 0.6 L, Monocytes # (Auto) 0.5, Eosinophils # (Auto) 0.1, Basophils # (Auto) 0.0 Microbiology Microbiology 06/25/16 Blood Culture - Final, Complete NO GROWTH AFTER 5 DAYS 06/29/16 Gram Stain - Final, Complete 06/29/16 Sputum Culture - Final, Complete Yeast Like Organism 06/26/16 Gram Stain - Final, Complete 06/26/16 Sputum Culture - Final, Complete 06/26/16 MRSA Screen - Final, Complete 06/25/16 Respiratory Virus Panel (PCR) ([facility]) - Final, Complete 06/25/16 Influenza Virus Type A Antigen - Final, Complete 06/25/16 Influenza Virus Type B Antigen - Final, Complete DIONNE JALLOH Jul 03, 2016 10:46
--- NOTE | 2016-07-03 12:03 | REP ---
Right foot four views: There is diffuse demineralization. There is no fracture or dislocation. There is faintly visible calcification of the plantar fascia suggestive of old plantar fasciitis. There is a tiny calcaneal spur. Signed by Dwight Roper MD 07/03/2016 11:55 A
--- NOTE | 2016-07-03 12:05 | REP ---
Right ankle four views : There is no fracture or dislocation. There is demineralization. There is calcification of the plantar fascia suggestive of old plantar fasciitis. Impression: Negative right ankle except for calcification of the plantar fascia suggestive of old plantar fasciitis. Signed by Diwght Roper MD 07/03/2016 11:57 A
[2016-07-03] MEDS ORDERED: VANCOMYCIN HCL 1,000 MG, VIAL MATE ADAPTER 1 EACH in D5W 250 ML IV SCH (15:00)
[2016-07-03] MEDS: SIMVASTATIN 10 MG TAB PO SCH (20:53)
[2016-07-03] MEDS: AUGMENTIN 875 MG TAB PO SCH (20:53)
[2016-07-03] MEDS: ACETAMINOPHEN TAB 650MG DOSE (2X325MG) PO PRN (20:54)
[2016-07-04] VITALS (17 sets, daily range): BP systolic 114–149; BP diastolic 52–77; O2SAT 91–95
[2016-07-04 05:32] LABS: BASO % 0.2 % (0.0-1.0); EOS # 0.1 K/mm3 (0.0-0.50); EOS % 0.9 % (0.0-3.0); LARGE UNSTAINED CELL # 0.1 K/mm3 (0.0-0.4); LARGE UNSTAINED CELL % 2.3 % (0.0-4.0); LYMPH # 0.5 K/mm3 (1.5-4.5); LYMPH % 8.9 % (24.0-44.0); MEAN CORPUSCULAR HEMOGLOBIN 35.3 pg (27.0-33.0); MEAN CORPUSCULAR HGB CONC 35.6 g/dl (32.0-36.5); MEAN CORPUSCULAR VOLUME 99.3 fl (80.0-96.0); MONO # 0.4 K/mm3 (0.0-0.8); MONO % 7.2 % (0.0-5.0); NEUTROPHILS # 4.8 K/mm3 (1.8-7.7); NEUTROPHILS % 80.4 % (36.0-66.0); PLATELET COUNT, AUTOMATED 255 k/mm3 (150-450); RED CELL DISTRIBUTION WIDTH 12.6 % (11.5-14.5)
[2016-07-04 05:33] LABS: CALCIUM LEVEL 9.2 MG/DL (8.8-10.2); CREATININE FOR GFR 1.22 MG/DL (0.70-1.30); GLOMERULAR FILTRATION RATE 59.7 (>35); MAGNESIUM LEVEL 2.2 MG/DL (1.8-2.4); POTASSIUM SERUM 3.5 MEQ/L (3.5-5.1)
[2016-07-04] MEDS: SLF 3 ML SYR IV SCH ×3 (06:07→21:16)
[2016-07-04] MEDS: HEPARIN SOD (PORCINE) 5000 UNITS/ML VIAL SC SCH ×3 (06:07→21:16)
[2016-07-04] MEDS: AUGMENTIN 875 MG TAB PO SCH ×2 (09:49→20:05)
[2016-07-04] MEDS: MECLIZINE 25 MG TABLET PO SCH ×2 (09:49→20:06)
[2016-07-04] MEDS: OMEPRAZOLE 20 MG CAP PO SCH (09:49)
[2016-07-04] MEDS: ASPIRIN 81 MG ENTERIC TAB PO SCH (09:49)
[2016-07-04] MEDS: LACTOBACILLUS ACIDOPHILUS CAP (BACID) PO SCH ×2 (09:49→20:06)
[2016-07-04] MEDS: FLUTICASONE PROP 0.05% NASAL SPRAY 16 GM (FLONASE) SCH (09:55)
[2016-07-04] MEDS: FLUCONAZOLE 400 MG in APPROPRIATE DILUENT 1 EA IV SCH (11:22)
--- NOTE | 2016-07-04 17:18 | IPNPDOC ---
Date Seen The patient was seen on 07/04/16. Progress Note Hospitalist Progress Note Subjective: Patient states he is eating more today and feeling decently well Objective: Physical Exam: Vitals: Vital Sign - Last 24 Hours 07/03/16 07/03/16 07/03/16 07/03/16 19:14 20:00 20:00 21:00 Temp 99.8 Pulse 94 Resp 20 B/P 136/78 Pulse Ox 98 94 93 O2 Delivery Nasal Cannula Nasal Cannula Nasal Cannula Nasal Cannula O2 Flow Rate 2.0 2.0 2.0 2.0 07/03/16 07/03/16 07/04/16 07/04/16 23:00 23:59 00:00 00:00 Temp 98.0 Pulse 88 Resp 20 B/P 151/78 Pulse Ox 93 96 95 O2 Delivery Nasal Cannula Nasal Cannula Nasal Cannula Nasal Cannula O2 Flow Rate 2.0 2.0 2.0 2.0 07/04/16 07/04/16 07/04/16 07/04/16 01:00 01:00 02:00 03:00 Pulse Ox 95 95 94 92 O2 Delivery Nasal Cannula Nasal Cannula Nasal Cannula O2 Flow Rate 2.0 2.0 2.0 07/04/16 07/04/16 07/04/16 07/04/16 03:48 04:00 04:00 05:00 Temp 99.2 Pulse 83 Resp 20 B/P 136/77 Pulse Ox 96 94 91 O2 Delivery Nasal Cannula Nasal Cannula Nasal Cannula Nasal Cannula O2 Flow Rate 2.0 2.0 2.0 2.0 07/04/16 07/04/16 07/04/16 07/04/16 06:00 07:00 08:00 08:00 Resp 20 Pulse Ox 95 93 95 95 O2 Delivery Nasal Cannula Nasal Cannula Nasal Cannula Nasal Cannula O2 Flow Rate 2.0 2.0 2.0 2.0 07/04/16 07/04/16 07/04/16 07/04/16 08:00 08:00 12:00 12:00 Temp 97.7 97.7 Pulse 80 70 Resp 20 18 B/P 120/52 115/60 Pulse Ox 97 96 O2 Delivery Nasal Cannula Nasal Cannula Nasal Cannula Nasal Cannula O2 Flow Rate 2.0 2.0 2.0 2.0 07/04/16 07/04/16 12:00 16:00 Temp 97.8 Pulse 81 Resp 18 B/P 114/56 Pulse Ox 93 96 O2 Delivery Nasal Cannula Nasal Cannula O2 Flow Rate 2.0 2.0 General: Awake, alert, no acute distress HEENT: Normocephalic, atraumatic, extraocular movements intact CV: Regular rate and rhythm Lungs: Clear to auscultation bilaterally, no wheeze Abd: Soft, nontender, nondistended Extremities: No edema of the bilateral lower extremities, point TTP of medial right foot at the arch Neuro: Very hard of hearing, but normal speech, alert and oriented Psych: Normal mood and affect Labs and Imaging: Laboratory Tests 07/04/16 04:40 Calcium Level 9.2, Red Blood Count 3.41 L, Mean Corpuscular Volume 99.3 H, Mean Corpuscular Hemoglobin 35.3 H, Mean Corpuscular Hemoglobin Concent 35.6, Red Cell Distribution Width 12.6, Neutrophils (%) (Auto) 80.4 H, Lymphocytes (%) ( Auto) 8.9 L, Monocytes (%) (Auto) 7.2 H, Eosinophils (%) (Auto) 0.9, Basophils ( %) (Auto) 0.2, Neutrophils # (Auto) 4.8, Lymphocytes # (Auto) 0.5 L, Monocytes # (Auto) 0.4, Eosinophils # (Auto) 0.1, Basophils # (Auto) 0.0 Assessment and Plan: 86-year-old male with hypertension, hyperlipidemia, GERD, remote history of bladder cancer, LINDSAY who presented with vomiting, cough, chills, and shortness of breath. He has been admitted with sepsis secondary to a right community- acquired pneumonia. 1. Sepsis secondary to a right community-acquired pneumonia: Patient is currently afebrile with a normal white count. He had been requiring 8 L of oxygen until yesterday afternoon, when we were able to titrate down to 2L. Initial chest x-ray and CT of the chest showed right upper lobe and right lower lobe pneumonias as well as a small right pleural effusion. Blood cultures are negative, and his initial sputum culture is currently growing normal tarun. Although his lungs sound surprisingly good, las t week he continued to have a high O2 requirement, so on 06/28/16, we broadened his coverage from azithromycin and Rocephin to vanc/levaquin/zosyn. Repeat sputum culture shows yeast, so he is now s/p treatment with 5 days of diflucan. Repeat CT chest on 06/30 showed necrotizing RUL PNA with multiple bullae. I reviewed the images and case with Dr. Leos, and he feels that there is nothing that needs drainage at this time. He notes that it will likely just take a very long time to improve. He also notes evidence on the images of underlying lung disease, and states that the patient may have to go home with O2. Dr. Garcia also reviewed the images and is concerned that the pleural fluid is nodular and irregular and could represent an underlying malignanacy. They also both note underlying, undiagnosed pulmonary disease. On 07/03, after receiving 5 days worth of vanc/ levaquin/zosyn, we transitioned him to PO levaquin and augmentin. CRP increased a bit today. I discussed with both patient and daughter Shana the concern for underlying malignancy, and discussed the options of a diagnostic thoracentesis while here vs. outpatient pulm follow up after completing abx for repeat imaging. Shana and the patient are thinking about these options now. 2. Hypertension: Blood pressure upon admission was fairly soft. BP has now improved, but we are still holding his home metoprolol. 3. Hyperlipidemia: Continue home statin. 4. GERD: Continue home PPI. 5. LINDSAY: Patient needs refitting of his mask as an outpatient. He is currently on continuous pulse ox in the PCU. 6. Iatrogenic pulmonary edema: Patient is quite volume up secondary to the IVF he received here. He received one dose of IV lasix and diuresed well, but Cr bumped. Will hold off on further diuresis until kidney function improves since he is clinically well appearing. 7. ADENIKE: Cr was entirely normal prior to lasix and changing to vanc/levaquin/ zosyn. Cr has now trended up to 1.27. We have stopped the vanc and zosyn, and will try to hold off on diuresing him further until his ADENIKE improves. 8. Right foot pain: Patient reports TTP and pain with walking. Plain films show bone spur. 9. Hypokalemia: replaced DVT prophylaxis: Heparin Dispo: patient will likely need to be discharged home on O2; may be able to go home in 24-48H; family is interested in options such as Meals on Wheels VS, I&O, [facility]H, [facility] Vital Signs/I&O Vital Signs Date Time Temp Pulse Resp B/P Pulse Ox O2 Delivery O2 Flow Rate FiO2 07/04/16 16:00 97.8 81 18 114/56 96 Nasal Cannula 2.0 I&O- Last 24 Hours up to 6 AM 07/04/16 06:00 Intake Total 1560 ml Output Total 1350 ml Balance 210 ml Laboratory Data 24H LABS Laboratory Tests 2 07/04/16 04:40: Anion Gap 4L, White Blood Count 6.0, Red Blood Count 3.41L, Hemoglobin 12.0L, Hematocrit 33.8L, Mean Corpuscular Volume 99.3H, Mean Corpuscular Hemoglobin 35.3H, Mean Corpuscular Hemoglobin Concent 35.6, Red Cell Distribution Width 12.6, Platelet Count 255, Neutrophils (%) (Auto) 80.4H, Lymphocytes (%) (Auto) 8.9L, Monocytes (%) (Auto) 7.2H, Eosinophils (%) (Auto) 0.9, Basophils (%) (Auto ) 0.2, Neutrophils # (Auto) 4.8, Lymphocytes # (Auto) 0.5L, Monocytes # (Auto) 0.4, Eosinophils # (Auto) 0.1, Basophils # (Auto) 0.0, C-Reactive Protein, Quantitative 9.61H, Blood Urea Nitrogen 10, Creatinine 1.22, Sodium Level 142, Potassium Level 3.5, Chloride Level 104, Carbon Dioxide Level 34H, Calcium Level 9.2, Glomerular Filtration Rate 59.7, Large Unclassified Cells # 0.1, Large Unclassified Cells % 2.3, Magnesium Level 2.2 CBC/BMP Laboratory Tests 07/04/16 04:40 Calcium Level 9.2, Red Blood Count 3.41 L, Mean Corpuscular Volume 99.3 H, Mean Corpuscular Hemoglobin 35.3 H, Mean Corpuscular Hemoglobin Concent 35.6, Red Cell Distribution Width 12.6, Neutrophils (%) (Auto) 80.4 H, Lymphocytes (%) ( Auto) 8.9 L, Monocytes (%) (Auto) 7.2 H, Eosinophils (%) (Auto) 0.9, Basophils ( %) (Auto) 0.2, Neutrophils # (Auto) 4.8, Lymphocytes # (Auto) 0.5 L, Monocytes # (Auto) 0.4, Eosinophils # (Auto) 0.1, Basophils # (Auto) 0.0 Microbiology Microbiology 06/25/16 Blood Culture - Final, Complete NO GROWTH AFTER 5 DAYS 06/29/16 Gram Stain - Final, Complete 06/29/16 Sputum Culture - Final, Complete Yeast Like Organism 06/26/16 Gram Stain - Final, Complete 06/26/16 Sputum Culture - Final, Complete 06/26/16 MRSA Screen - Final, Complete 06/25/16 Respiratory Virus Panel (PCR) (KEVIN) - Final, Complete 06/25/16 Influenza Virus Type A Antigen - Final, Complete 06/25/16 Influenza Virus Type B Antigen - Final, Complete DIONNE JALLOH Jul 04, 2016 17:18
[2016-07-04] MEDS: SIMVASTATIN 10 MG TAB PO SCH (20:06)
[2016-07-04] MEDS: ACETAMINOPHEN TAB 650MG DOSE (2X325MG) PO PRN (20:06)
[2016-07-05] VITALS (14 sets, daily range): BP systolic 112–182; BP diastolic 65–102; O2SAT 94–97
[2016-07-05] MEDS: HEPARIN SOD (PORCINE) 5000 UNITS/ML VIAL SC SCH ×3 (05:29→21:47)
[2016-07-05] MEDS: LevoFLOXacin 750 MG TABLET PO SCH (05:29)
[2016-07-05] MEDS: SLF 3 ML SYR IV SCH ×3 (05:30→21:48)
[2016-07-05 05:47] LABS: BASO % 0.2 % (0.0-1.0); EOS # 0.1 K/mm3 (0.0-0.50); LARGE UNSTAINED CELL # 0.1 K/mm3 (0.0-0.4); LARGE UNSTAINED CELL % 1.6 % (0.0-4.0); LYMPH # 0.7 K/mm3 (1.5-4.5); LYMPH % 7.5 % (24.0-44.0); MEAN CORPUSCULAR HEMOGLOBIN 33.6 pg (27.0-33.0); MEAN CORPUSCULAR HGB CONC 34.4 g/dl (32.0-36.5); MEAN CORPUSCULAR VOLUME 97.6 fl (80.0-96.0); MONO # 0.5 K/mm3 (0.0-0.8); MONO % 6.6 % (0.0-5.0); NEUTROPHILS # 6.2 K/mm3 (1.8-7.7); NEUTROPHILS % 83.1 % (36.0-66.0); PLATELET COUNT, AUTOMATED 279 k/mm3 (150-450); RED CELL DISTRIBUTION WIDTH 12.6 % (11.5-14.5); WHITE BLOOD COUNT 7.5 K/mm3 (4.0-10.0)
[2016-07-05 06:08] LABS: ANION GAP 8 MEQ/L (8-16); BLOOD UREA NITROGEN 13 MG/DL (7-18); CARBON DIOXIDE LEVEL 30 MEQ/L (21-32); CHLORIDE LEVEL 104 MEQ/L (98-107); CREATININE FOR GFR 1.14 MG/DL (0.70-1.30); GLOMERULAR FILTRATION RATE > 60.0 (>35); GLUCOSE, FASTING 106 MG/DL (83-110); MAGNESIUM LEVEL 2.2 MG/DL (1.8-2.4); POTASSIUM SERUM 3.5 MEQ/L (3.5-5.1); SODIUM LEVEL 142 MEQ/L (136-145)
[2016-07-05] MEDS: ASPIRIN 81 MG ENTERIC TAB PO SCH (08:20)
[2016-07-05] MEDS: OMEPRAZOLE 20 MG CAP PO SCH (08:20)
[2016-07-05] MEDS: LACTOBACILLUS ACIDOPHILUS CAP (BACID) PO SCH ×2 (08:20→21:47)
[2016-07-05] MEDS: FLUTICASONE PROP 0.05% NASAL SPRAY 16 GM (FLONASE) SCH (08:20)
[2016-07-05] MEDS: AUGMENTIN 875 MG TAB PO SCH ×2 (08:20→21:48)
[2016-07-05] MEDS: MECLIZINE 25 MG TABLET PO SCH ×2 (08:20→21:48)
[2016-07-05] MEDS: traMADol 50 MG TAB PO PRN (12:13)
--- NOTE | 2016-07-05 12:26 | IPN ---
DATE: 07/05/2016 This is an 86-year-old gentleman seen at bedside. He feels his breathing is only about the pain. He continues on 2 liters nasal cannula supplemental oxygen. He denies chest pain. Denies productive sputum, cough or hemoptysis. No nausea or vomiting. OBJECTIVE: Temperature is 99.6, pulse 84, respiratory rate is 22, BP 112/71, SPO2 is 95% on 2 liters. General: The patient appears to be in no acute distress, he is pleasant. HEENT: Unremarkable. No JVD. Lungs: Diminished bibasilar breath sounds, worse on the right. No rhonchi. No wheeze. Heart: Regular rate and rhythm. Abdomen: Soft. Extremities: No edema or calf tenderness. LABORATORY DATA: White count 7.5, hemoglobin 11.5, platelets 279. Sodium 142, potassium 2.5, chloride 104, bicarb 39, anion gap 8, BUN is 13, creatinine 1.14, glucose 106, magnesium 2.2. C-reactive protein 8.66 down from 9.61 yesterday. ASSESSMENT/PLAN: 1. Sepsis secondary to right-sided community acquired pneumonia with pleural effusion, he continues on [address] of the chest on 06/30 showed right upper lobe pneumonia with multiple bulla. This has been reviewed with pulmonology. He has been transitioned from Vancomycin, Levaquin, and Zosyn to oral Levaquin and Augmentin. CRP does appear to be slightly improved today. There was a discussion with the patient's daughter Shana concerning underlying malignancy. Discussed options and he has elected to go ahead and have a diagnostic thoracentesis which I will go ahead and order today. 2. Hypertension stable. Continue to follow his blood pressures. Hold parameters on his metoprolol. 3. Hyperlipidemia. Continue statin. 4. Gastroesophageal reflux disease (GERD), continue PPI. 5. Obstructive sleep apnea (LINDSAY), continue with pulse ox on him as well, he apparently needs a fitting of his mask. 6. Iatrogenic pulmonary edema. Creatinine does appear to be doing well. Continue to monitor his fluid status. 7. Acute kidney injury. Does appear to be much better. 8. Right foot pain. Does appear to be improved. 9. Right knee pain, likely anterior bursitis. We will go ahead and start him on some Ultram. 10. Hypokalemia. Repleted. 11. Deep venous thrombosis (DVT) prophylaxis with heparin. DISPOSITION: The patient will likely need home O2. He does appear to be doing well from a clinical standpoint. Will downgrade him to the general medical floor. Patient and Family Services (PFS) is involved. He will likely need meals of wheels at home and we will plan on a thoracentesis diagnostic tap, will go ahead and check for gram stain, cytology and check a sputum cytology. Additionally, we did have advanced directives.
[2016-07-05] MEDS: SIMVASTATIN 10 MG TAB PO SCH (21:48)
[2016-07-06] MEDS: HEPARIN SOD (PORCINE) 5000 UNITS/ML VIAL SC SCH ×3 (05:47→20:27)
[2016-07-06 06:00] VITALS: BP 138/69
[2016-07-06] MEDS: SLF 3 ML SYR IV SCH ×3 (06:00→20:27)
[2016-07-06] MEDS: ACETAMINOPHEN TAB 650MG DOSE (2X325MG) PO PRN ×2 (06:40→20:26)
[2016-07-06 06:47] LABS: BASO % 0.3 % (0.0-1.0); EOS % 0.4 % (0.0-3.0); LARGE UNSTAINED CELL # 0.2 K/mm3 (0.0-0.4); LARGE UNSTAINED CELL % 1.8 % (0.0-4.0); LYMPH # 0.7 K/mm3 (1.5-4.5); LYMPH % 6.3 % (24.0-44.0); MEAN CORPUSCULAR HEMOGLOBIN 33.1 pg (27.0-33.0); MEAN CORPUSCULAR HGB CONC 33.6 g/dl (32.0-36.5); MEAN CORPUSCULAR VOLUME 98.7 fl (80.0-96.0); MONO # 0.7 K/mm3 (0.0-0.8); NEUTROPHILS # 7.1 K/mm3 (1.8-7.7); NEUTROPHILS % 83.3 % (36.0-66.0); PLATELET COUNT, AUTOMATED 262 k/mm3 (150-450); RED CELL DISTRIBUTION WIDTH 12.6 % (11.5-14.5); WHITE BLOOD COUNT 8.5 K/mm3 (4.0-10.0)
[2016-07-06 07:01] LABS: ANION GAP 8 MEQ/L (8-16); BLOOD UREA NITROGEN 16 MG/DL (7-18); CALCIUM LEVEL 9.3 MG/DL (8.8-10.2); CARBON DIOXIDE LEVEL 33 MEQ/L (21-32); CHLORIDE LEVEL 102 MEQ/L (98-107); CREATININE FOR GFR 1.14 MG/DL (0.70-1.30); GLOMERULAR FILTRATION RATE > 60.0 (>35); GLUCOSE, FASTING 112 MG/DL (83-110); MAGNESIUM LEVEL 2.3 MG/DL (1.8-2.4); POTASSIUM SERUM 3.8 MEQ/L (3.5-5.1); SODIUM LEVEL 143 MEQ/L (136-145)
--- NOTE | 2016-07-06 07:59 | IPN ---
DATE: 07/06/2016 86-year-old gentleman seen at bedside. He is complaining of right knee pain. Otherwise he denies any chest pain, productive sputum, cough or hemoptysis. No fevers or chills were reported. OBJECTIVE: Temperature is 98.7, pulse 83, respiratory rate is 18, BP 113/69, SpO2 88% on room air and we would like to try to ambulate him today with physical therapy. HEENT: Unremarkable. Lungs: Diminished bibasilar breath sounds, occasional wheeze clears with cough. Heart regular rate and rhythm. Abdomen: Soft. Extremities: No edema or calf tenderness. He does have some vague palpable tenderness of the anterior space over the patella. No joint effusion is appreciated and he does have free range of motion otherwise. LABORATORY DATA: White count 7.5, hemoglobin is 11.5, platelets are 279. BMP is unremarkable. X-ray of the right knee is pending. ASSESSMENT/PLAN: 1. Right knee pain. Will do an x-ray. I am more concerned this may be an anterior bursitis. He was started on some Ultram yesterday which has helped somewhat. I would like to see how he does with ambulating in physical therapy today. 2. Sepsis secondary to right-sided community acquired pneumonia with small pleural effusions. Symptomatically and clinically he does appear to be improved. He does continue to have need of some supplemental oxygen. CRP has been trending better. We did attempt to do a diagnostic thoracentesis yesterday. However, by ultrasound, he did not have enough fluid to drain for diagnostic tap. We will try together a sputum for cytology and he has been switched to oral antibiotics at this point. 3. Hypertension stable. Will continue to follow his blood pressure with hold parameters. 4. Hyperlipidemia. Continue statin therapy. 5. Gastroesophageal reflux disease (GERD). Continue PPI. 6. Obstructive sleep apnea (LINDSAY). Will continue to monitor with pulse ox and he may need outpatient followup for mask fitting 7. Iatrogenic pulmonary edema. His creatinine is improved. Will continue to monitor his fluid status. 8. Acute kidney injury resolved. 9. Right foot pain improved. 10. Hypokalemia, resolved. 11. Deep venous thrombosis (DVT) prophylaxis with subcu heparin. DISPOSITION: He is stable from a clinical standpoint. He may need some home oxygen. Patient and Family Services (PFS) is on board, likely will need [facility]. I would like for physical therapy to help evaluate for home safety evaluation and will see if we can discharge him home today. If he is not a good candidate for being discharged, then we may need to look at group home with possible subacute rehab.
--- NOTE | 2016-07-06 09:12 | NOCOX ---
DATE OF PROCEDURE: 07/06/2016 Nocturnal recording oximetry was performed on room air. Baseline saturation was 94%. Lowest oxygen saturation 83%. There was a variable pattern. IMPRESSION: Abnormal nocturnal recording oximetry with desaturations to 83% and a pattern suggestive of Dustin-Cristina respirations or obstructive sleep apnea syndrome.
--- NOTE | 2016-07-06 09:52 | REP ---
PLEURAL ULTRASOUND: Real-time sonographic evaluation of the pleural space is performed bilaterally. There is not significant pleural fluid on either side. Scheduled thoracentesis is cancelled. Signed by Dwight Seay MD 07/07/2016 04:39 P
[2016-07-06] MEDS: MECLIZINE 25 MG TABLET PO SCH ×2 (10:12→20:27)
[2016-07-06] MEDS: LACTOBACILLUS ACIDOPHILUS CAP (BACID) PO SCH ×2 (10:12→20:26)
[2016-07-06] MEDS: ASPIRIN 81 MG ENTERIC TAB PO SCH (10:12)
[2016-07-06] MEDS: OMEPRAZOLE 20 MG CAP PO SCH (10:12)
[2016-07-06] MEDS: AUGMENTIN 875 MG TAB PO SCH ×2 (10:12→20:26)
[2016-07-06] MEDS: FLUTICASONE PROP 0.05% NASAL SPRAY 16 GM (FLONASE) SCH (10:13)
--- NOTE | 2016-07-06 13:08 | REP ---
AP AND LATERAL RIGHT KNEE: HISTORY: Pain. There is no acute fracture or dislocation. There is minimal narrowing of the joint space. Chondrocalcinosis is present. A small suprapatellar joint effusion is present. IMPRESSION: Degenerative change as described above. Signed by Samuel Sumner MD 07/06/2016 01:15 P
[2016-07-06 14:00] VITALS: BP 129/68
[2016-07-06] MEDS: SIMVASTATIN 10 MG TAB PO SCH (20:27)
[2016-07-06 22:00] VITALS: BP 142/65
[2016-07-07 06:00] VITALS: BP 152/72
[2016-07-07] MEDS: LevoFLOXacin 750 MG TABLET PO SCH (06:03)
[2016-07-07] MEDS: HEPARIN SOD (PORCINE) 5000 UNITS/ML VIAL SC SCH ×3 (06:03→20:21)
[2016-07-07] MEDS: ACETAMINOPHEN TAB 650MG DOSE (2X325MG) PO PRN (06:04)
[2016-07-07] MEDS: SLF 3 ML SYR IV SCH ×3 (06:04→20:21)
[2016-07-07 07:13] LABS: BASO % 0.2 % (0.0-1.0); EOS % 0.5 % (0.0-3.0); LARGE UNSTAINED CELL # 0.1 K/mm3 (0.0-0.4); LYMPH # 0.5 K/mm3 (1.5-4.5); LYMPH % 5.1 % (24.0-44.0); MEAN CORPUSCULAR HEMOGLOBIN 32.7 pg (27.0-33.0); MEAN CORPUSCULAR HGB CONC 33.6 g/dl (32.0-36.5); MEAN CORPUSCULAR VOLUME 97.5 fl (80.0-96.0); MONO # 0.7 K/mm3 (0.0-0.8); MONO % 8.6 % (0.0-5.0); NEUTROPHILS # 6.7 K/mm3 (1.8-7.7); NEUTROPHILS % 84.6 % (36.0-66.0); PLATELET COUNT, AUTOMATED 304 k/mm3 (150-450); RED CELL DISTRIBUTION WIDTH 12.4 % (11.5-14.5); WHITE BLOOD COUNT 7.9 K/mm3 (4.0-10.0)
[2016-07-07 07:44] LABS: ANION GAP 7 MEQ/L (8-16); BLOOD UREA NITROGEN 16 MG/DL (7-18); CALCIUM LEVEL 9.4 MG/DL (8.8-10.2); CARBON DIOXIDE LEVEL 33 MEQ/L (21-32); CHLORIDE LEVEL 102 MEQ/L (98-107); GLOMERULAR FILTRATION RATE > 60.0 (>35); GLUCOSE, FASTING 123 MG/DL (83-110); MAGNESIUM LEVEL 2.5 MG/DL (1.8-2.4); POTASSIUM SERUM 3.7 MEQ/L (3.5-5.1); SODIUM LEVEL 142 MEQ/L (136-145)
[2016-07-07] MEDS: AUGMENTIN 875 MG TAB PO SCH (09:31)
[2016-07-07] MEDS: ASPIRIN 81 MG ENTERIC TAB PO SCH (09:31)
[2016-07-07] MEDS: OMEPRAZOLE 20 MG CAP PO SCH (09:31)
[2016-07-07] MEDS: MECLIZINE 25 MG TABLET PO SCH ×2 (09:31→20:20)
[2016-07-07] MEDS: LACTOBACILLUS ACIDOPHILUS CAP (BACID) PO SCH ×2 (09:31→20:20)
[2016-07-07] MEDS: traMADol 50 MG TAB PO PRN ×2 (09:32→20:23)
[2016-07-07] MEDS: FLUTICASONE PROP 0.05% NASAL SPRAY 16 GM (FLONASE) SCH (09:35)
[2016-07-07 14:00] VITALS: BP 145/68
--- NOTE | 2016-07-07 14:13 | IPN ---
DATE: 07/07/2016 SUBJECTIVE: An 86-year-old gentleman seen at bedside resting comfortably. No specific complaints today. No chest pain, no nausea, vomiting. OBJECTIVE: Temperature 99.4, pulse 80, respiratory rate 18, blood pressure 152/72, SPO2 is 97% on two liters. GENERAL: The patient appears to be in no acute distress. He is alert. HEENT: Unremarkable. LUNGS: Diminished bibasilar breath sounds, otherwise clear. HEART: Regular rate, rhythm. ABDOMEN: Soft. EXTREMITIES: No edema or calf tenderness. LABORATORY DATA White count 7.9, hemoglobin 11.5, platelets 304,000. Sodium 142, potassium 3.7, chloride 102, bicarb 33, anion gap 7, BUN 16, creatinine is 1.0, glucose 123, magnesium 2.5. ASSESSMENT AND PLAN: 1. Right knee pain. Doing better. X-ray did reveal some degenerative joint changes, otherwise no acute issues. Ultram does seem to help, and encouraged to ambulate with physical therapy assistance. 2. Sepsis secondary to right-sided community-acquired pneumonia. He does appear to be progressing nicely symptom anderson. He is afebrile. No signs of sepsis. Did try to get a sputum cytology since there was some questionable findings on CT scan of possible underlying malignancy. He is on oral Levaquin 750 mg every 48 hours on de-escalation. We will plan on stopping his Levaquin this weekend. 3. Hypertension stable with hold parameters on blood pressure medicine. 4. Hyperlipidemia. Stable on statin therapy. 5. Gastroesophageal reflux disease (GERD). Continue proton pump inhibitor (PPI). 6 obstructive sleep apnea (LINDSAY). Continue with pulse oximetry monitoring. Needs refitting of his LINDSAY mask for home. 7. Iatrogenic pulmonary edema. Creatinine is improved. He appears to be doing well otherwise. 8. Acute kidney injury (ADENIKE) resolved. 9. Right foot pain improved. 10. Hypokalemia, resolved. 11. DVT prophylaxis subcutaneous heparin. DISPOSITION: Patient and family services (PFS) is on board. Physical therapy does feel that he is going to need place for subacute rehab.
[2016-07-07] MEDS: SIMVASTATIN 10 MG TAB PO SCH (20:20)
[2016-07-07 22:00] VITALS: BP 131/75
[2016-07-08] MEDS: traMADol 50 MG TAB PO PRN ×2 (03:42→16:53)
[2016-07-08 06:00] VITALS: BP 162/86
[2016-07-08] MEDS: HEPARIN SOD (PORCINE) 5000 UNITS/ML VIAL SC SCH ×3 (06:29→21:35)
[2016-07-08] MEDS: ACETAMINOPHEN TAB 650MG DOSE (2X325MG) PO PRN (06:29)
[2016-07-08] MEDS: SLF 3 ML SYR IV SCH ×3 (06:30→21:36)
[2016-07-08 07:22] LABS: BASO % 0.1 % (0.0-1.0); EOS % 0.1 % (0.0-3.0); LARGE UNSTAINED CELL # 0.2 K/mm3 (0.0-0.4); LARGE UNSTAINED CELL % 1.7 % (0.0-4.0); LYMPH # 0.4 K/mm3 (1.5-4.5); LYMPH % 4.8 % (24.0-44.0); MEAN CORPUSCULAR HEMOGLOBIN 34.4 pg (27.0-33.0); MEAN CORPUSCULAR HGB CONC 34.5 g/dl (32.0-36.5); MEAN CORPUSCULAR VOLUME 99.7 fl (80.0-96.0); MONO # 0.8 K/mm3 (0.0-0.8); NEUTROPHILS # 7.5 K/mm3 (1.8-7.7); NEUTROPHILS % 84.3 % (36.0-66.0); PLATELET COUNT, AUTOMATED 336 k/mm3 (150-450); RED CELL DISTRIBUTION WIDTH 12.4 % (11.5-14.5); WHITE BLOOD COUNT 8.9 K/mm3 (4.0-10.0)
[2016-07-08 07:33] LABS: ANION GAP 8 MEQ/L (8-16); BLOOD UREA NITROGEN 19 MG/DL (7-18); CALCIUM LEVEL 9.5 MG/DL (8.8-10.2); CARBON DIOXIDE LEVEL 31 MEQ/L (21-32); CHLORIDE LEVEL 100 MEQ/L (98-107); CREATININE FOR GFR 1.11 MG/DL (0.70-1.30); GLOMERULAR FILTRATION RATE > 60.0 (>35); GLUCOSE, FASTING 118 MG/DL (83-110); MAGNESIUM LEVEL 2.4 MG/DL (1.8-2.4); POTASSIUM SERUM 3.6 MEQ/L (3.5-5.1); SODIUM LEVEL 139 MEQ/L (136-145)
--- NOTE | 2016-07-08 08:38 | IPN ---
DATE: 07/08/2016 78-year-old gentleman seen at bedside resting comfortably today. Has no complaints chest pain, productive sputum, cough or hemoptysis. No nausea or vomiting, but he does continue to have complaint of knee pain and left wrist pain related to his arthritis and has had some difficulty ambulating and continues with physical therapy. OBJECTIVE Maximum temperature (t-max)over the last 24 hours 99. Currently, his temperature is 98.4, pulse 89 and regular, respiratory rate 17, blood pressure 131/75, SpO2 is 96% on 2 liters. GENERAL: The patient appears to be in no acute distress. He is alert, pleasant. HEENT: Unremarkable. LUNGS: Diminished bibasilar breath sounds, otherwise clear. HEART: Regular rate and rhythm. ABDOMEN: Soft. EXTREMITIES: No edema. No calf tenderness. LABORATORY DATA White count is 8.9, hemoglobin 11.8, platelets 336. Sodium 139, potassium 3.6, chloride 100, bicarbonate 31, anion gap 8, BUN 19, creatinine 1.11, glucose 118, magnesium 2.4. ASSESSMENT/PLAN: 1. Knee pain, does appear to be doing better but he is having difficulty with ambulation. Was seen in physical therapy and they are suggesting subacute rehabilitation. 2. Sepsis secondary to right sided community acquired pneumonia. Symptom anderson he does appear to be improving. We did attempt to do a thoracentesis; however, under ultrasound guidance he did not have enough fluid to make this happen. We are still waiting on sputum cytology. He is currently on Levaquin, which we will stop after tomorrow's dose. 3. Hypertension, stable with hold parameters. We will continue to monitor his blood pressure. 4. Hyperlipidemia. Continue statin therapy. 5. Gastroesophageal reflux disease (GERD). Continue proton pump inhibitor. 6. Obstructive sleep apnea. Continue pulse oximetry monitoring. He needs an obstructive sleep apnea mask setting for home. 7. Iatrogenic pulmonary edema, creatinine is improved. He appears to be at baseline. 8. Acute kidney injury, resolved. 9. Right foot pain, improved. 10. Hypokalemia, resolved. 11. Deep vein thrombosis (DVT) prophylaxis. Subcutaneous heparin. DISPOSITION: Patient and family services (PFS) is on board. Physical therapy and occupational therapy (OT) felt that he may need ongoing subacute rehabilitation. Again, we will do a chest CT today to see how he has progressed with his lung condition. We will plan on discontinuing his Levaquin after tomorrow's dose.
[2016-07-08] MEDS: FLUTICASONE PROP 0.05% NASAL SPRAY 16 GM (FLONASE) SCH (08:53)
[2016-07-08] MEDS: ASPIRIN 81 MG ENTERIC TAB PO SCH (08:53)
[2016-07-08] MEDS: OMEPRAZOLE 20 MG CAP PO SCH (08:53)
[2016-07-08] MEDS: MECLIZINE 25 MG TABLET PO SCH ×2 (08:53→21:35)
[2016-07-08] MEDS: LACTOBACILLUS ACIDOPHILUS CAP (BACID) PO SCH ×2 (08:53→21:35)
[2016-07-08] MEDS ORDERED: ISOVUE-370 76% 100ML VIAL (Q9967) As Ordered ONE (09:31)
[2016-07-08 09:41] VITALS: O2SAT 95
[2016-07-08] MEDS ORDERED: IPRATROPIUM 0.5MG/ALBUTEROL 2.5MG INH SOL UD 3ML (DUONEB)(J7620) NEB PRN (12:00)
--- NOTE | 2016-07-08 12:05 | REP ---
REASON: Cough and dyspnea. COMPARISON: Numerable, the latest 06/30/2016 and the first on record on 12/08/2006. CONTRAST: 100 mL of Isovue 370. The mediastinum and pulmonary mel are unchanged from the latest prior. There are no pleural or pericardial effusions. There is no change in the appearance of the imaged upper abdomen or imaged osseous structures. Evaluation of the lung sandoval show the abnormal patchy and cystic right upper lobe changes with numerous nodules to have improved. Patchy scattered opacities are noted throughout the lung sandoval with lung base predominance. The too have improved. There is a persistent spiculated nodule in the right lower lobe which measures 1.2 cm. This has increased slightly in size from the 12/08/2006 exam although much better imaged using today's 128 slice technology rather than the prior 16 slice technology. Note is again made of heavy calcific pleural plaquing status quo. IMPRESSION: 1. There has been some improvement as described above. 2. There are heavy chronic lung field changes as described above which need close CT followup. The bilateral pleural effusions seen on the prior exam have also resolved. Signed by Janak Terrell DO 07/08/2016 12:11 P
[2016-07-08 14:00] VITALS: BP 158/86
[2016-07-08] MEDS: NYSTATIN 500,000 U/5 ML SUSP UDC SS SCH ×2 (18:21→21:35)
--- NOTE | 2016-07-08 18:26 | IPN ---
DATE: 07/08/2016 ADDENDUM: The patient is complaining of some raspiness and sore throat this afternoon, which I did have an opportunity to take a peek at. He does have some whitish plaques formed along the dorsum of the tongue which did scrape off easily and does appear to have some oral thrush. ASSESSMENT/PLAN: Oral candidiasis. We started him on Nystatin [id number] and will continue to see how he does as he progresses. I had an opportunity to also discuss with the patient's daughter at bedside the plan to make him jail and he is likely to need some ongoing subacute rehabilitation before he is able to return home. She did thank me for my time and we will to continue to follow him through the weekend.
[2016-07-08 20:00] VITALS: O2SAT 94
[2016-07-08] MEDS: IPRATROPIUM 0.5MG/ALBUTEROL 2.5MG INH SOL UD 3ML (DUONEB)(J7620) NEB SCH (20:04)
[2016-07-08] MEDS: SIMVASTATIN 10 MG TAB PO SCH (21:35)
[2016-07-09] MEDS: HEPARIN SOD (PORCINE) 5000 UNITS/ML VIAL SC SCH ×3 (05:43→20:51)
[2016-07-09] MEDS: SLF 3 ML SYR IV SCH ×3 (05:43→20:51)
[2016-07-09] MEDS: LevoFLOXacin 750 MG TABLET PO SCH (05:43)
[2016-07-09 06:00] VITALS: BP 141/74
[2016-07-09 06:43] LABS: BASO % 0.3 % (0.0-1.0); EOS % 0.7 % (0.0-3.0); LARGE UNSTAINED CELL # 0.1 K/mm3 (0.0-0.4); LARGE UNSTAINED CELL % 1.9 % (0.0-4.0); LYMPH # 0.5 K/mm3 (1.5-4.5); LYMPH % 7.3 % (24.0-44.0); MEAN CORPUSCULAR HEMOGLOBIN 33.6 pg (27.0-33.0); MEAN CORPUSCULAR HGB CONC 33.8 g/dl (32.0-36.5); MEAN CORPUSCULAR VOLUME 99.5 fl (80.0-96.0); MONO # 0.7 K/mm3 (0.0-0.8); MONO % 9.6 % (0.0-5.0); NEUTROPHILS # 5.9 K/mm3 (1.8-7.7); NEUTROPHILS % 80.2 % (36.0-66.0); PLATELET COUNT, AUTOMATED 353 k/mm3 (150-450); RED CELL DISTRIBUTION WIDTH 12.3 % (11.5-14.5); WHITE BLOOD COUNT 7.3 K/mm3 (4.0-10.0)
[2016-07-09 06:48] LABS: ANION GAP 6 MEQ/L (8-16); BLOOD UREA NITROGEN 23 MG/DL (7-18); CALCIUM LEVEL 9.4 MG/DL (8.8-10.2); CARBON DIOXIDE LEVEL 33 MEQ/L (21-32); CHLORIDE LEVEL 100 MEQ/L (98-107); CREATININE FOR GFR 1.05 MG/DL (0.70-1.30); GLOMERULAR FILTRATION RATE > 60.0 (>35); GLUCOSE, FASTING 115 MG/DL (83-110); MAGNESIUM LEVEL 2.5 MG/DL (1.8-2.4); POTASSIUM SERUM 3.5 MEQ/L (3.5-5.1); SODIUM LEVEL 139 MEQ/L (136-145)
[2016-07-09] MEDS: IPRATROPIUM 0.5MG/ALBUTEROL 2.5MG INH SOL UD 3ML (DUONEB)(J7620) NEB SCH ×3 (07:27→23:30)
[2016-07-09] MEDS: ASPIRIN 81 MG ENTERIC TAB PO SCH (08:07)
[2016-07-09] MEDS: MECLIZINE 25 MG TABLET PO SCH ×2 (08:07→20:50)
[2016-07-09] MEDS: OMEPRAZOLE 20 MG CAP PO SCH (08:07)
[2016-07-09] MEDS: traMADol 50 MG TAB PO PRN ×2 (08:07→14:11)
[2016-07-09] MEDS: FLUTICASONE PROP 0.05% NASAL SPRAY 16 GM (FLONASE) SCH (08:08)
[2016-07-09] MEDS: LACTOBACILLUS ACIDOPHILUS CAP (BACID) PO SCH ×2 (08:08→20:50)
[2016-07-09] MEDS: NYSTATIN 500,000 U/5 ML SUSP UDC SS SCH ×4 (08:08→20:50)
[2016-07-09 08:54] VITALS: BP 131/69
[2016-07-09] MEDS: BACITRACIN OINT 30GM TOP SCH ×2 (09:00→20:50)
[2016-07-09] MEDS: ACETAMINOPHEN TAB 650MG DOSE (2X325MG) PO PRN ×2 (14:10→20:52)
--- NOTE | 2016-07-09 15:06 | IPN ---
DATE: 07/09/2016 86-year-old male seen at bedside, resting comfortably. Feels that his throat is a little less raspy today. He denies chest pain, productive sputum, cough, or hemoptysis. No nausea or vomiting. He is tolerating meals. OBJECTIVE: Temperature is 98.2, pulse 84, respiratory rate 18, blood pressure 141/74, SPO2 is 97% on room air. GENERAL: The patient appears to be in no acute distress. He is alert, pleasant. HEENT: Unremarkable, other than some oral candidiasis still noted on the dorsum of the tongue. Airway is otherwise patent. LUNGS: Clear. HEART: Regular rate and rhythm. ABDOMEN: Soft. EXTREMITIES: No edema. No calf tenderness. LABORATORY DATA: White count is 7.3, hemoglobin 11.7, platelets are 353. Sodium is 139, potassium 3.5, chloride 100, bicarb 33, anion gap 6, BUN is 23, creatinine 1.05, glucose 115. ASSESSMENT/PLAN: 1. Oral candidiasis likely secondary to antibiotic use. He is currently off antibiotics and continue with nystatin swish and swallow. 2. Sepsis secondary to right-sided community-acquired pneumonia. Symptomwise he has showed quite a bit of improvement. His lungs are clear today. We did do a followup CT of the chest a few days ago which does show good resolution. He does, however, continue to have some underlying emphysema, had attempted a thoracentesis with the pleural effusion that he had had previously. However, under ultrasound guidance, he did not have enough fluid to do a needle thoracentesis. We are awaiting sputum cytology to be sure there are no abnormal cells, which he has been unable to produce any sputum. He can followup outpatient otherwise. 3. Hypertension. Hold parameters on blood pressure medication. Will continue to follow. 4. Hyperlipidemia. Continue statin therapy. 5. Gastroesophageal reflux disease (GERD). Continue proton pump inhibitor (PPI). 6. Obstructive sleep apnea. He is doing well otherwise, is currently off of supplemental oxygen, and he may need to have a mask refitting for his continuous positive airway pressure (CPAP). 7. Iatrogenic pulmonary edema, creatinine is improved. He likely had been volume overloaded because of the intravenous (IV) fluids that we had had to give due to his sepsis condition when he initially came in. He does appear to be doing much better and not requiring any supplemental oxygen this morning. 8. Acute kidney injury, resolved. 9. Right foot pain, likely from arthritis, improved. Negative x-rays. 10 Hypokalemia, resolved. 11. Right knee pain, likely secondary to osteoarthritis. There is no effusion, and this symptomatically is improved. 12. Deep venous thrombosis (DVT) prophylaxis with subcu heparin. DISPOSITION: Patient and family services (PFS) is on board. Physical therapy (PT)/occupational therapy (OT) been seeing the patient. They do feel that he needs subacute rehab. Did have a discussion with his daughter yesterday regarding the likeliness of him needing to be placed, and she is on board with that plan as well, and the patient is aware as well. I do plan on making him assisted today, and will see further about determining any placement issues on Monday when PFS is back.
[2016-07-09] MEDS: SIMVASTATIN 10 MG TAB PO SCH (20:50)
[2016-07-09 21:00] VITALS: O2SAT 96
[2016-07-09 22:00] VITALS: BP 138/74
[2016-07-09 23:30] VITALS: O2SAT 9
[2016-07-10] MEDS: HEPARIN SOD (PORCINE) 5000 UNITS/ML VIAL SC SCH ×3 (05:24→20:18)
[2016-07-10] MEDS: SLF 3 ML SYR IV SCH ×3 (05:24→20:19)
[2016-07-10 06:00] VITALS: BP 134/63
[2016-07-10] MEDS: IPRATROPIUM 0.5MG/ALBUTEROL 2.5MG INH SOL UD 3ML (DUONEB)(J7620) NEB SCH ×3 (08:00→23:21)
--- NOTE | 2016-07-10 08:07 | REP ---
LEFT WRIST, TWO VIEWS: HISTORY: Swelling. There is no acute fracture or dislocation. There is narrowing of the carpal and carpometacarpal joint spaces. Chondrocalcinosis is present. The bony structure is osteopenic . IMPRESSION: Degenerative change, as described above. Signed by Samuel Sumner MD 07/10/2016 09:20 A
--- NOTE | 2016-07-10 08:11 | REP ---
LEFT HAND, TWO VIEWS: HISTORY: Swelling. There is no acute fracture or dislocation. There is narrowing of the carpal and carpometacarpal joint spaces, metacarpal, intermediate, and distal interphalangeal joint spaces. Chondrocalcinosis is present in the wrist. The bony structure is osteopenic. IMPRESSION: Degenerative change, as described above. Signed by Samuel Sumner MD 07/10/2016 09:20 A
[2016-07-10] MEDS: BACITRACIN OINT 30GM TOP SCH ×2 (09:00→20:19)
[2016-07-10] MEDS: LACTOBACILLUS ACIDOPHILUS CAP (BACID) PO SCH ×2 (11:01→20:16)
[2016-07-10] MEDS: OMEPRAZOLE 20 MG CAP PO SCH (11:01)
[2016-07-10] MEDS: MECLIZINE 25 MG TABLET PO SCH ×2 (11:02→20:16)
[2016-07-10] MEDS: ASPIRIN 81 MG ENTERIC TAB PO SCH (11:02)
[2016-07-10] MEDS: NYSTATIN 500,000 U/5 ML SUSP UDC SS SCH ×4 (11:02→20:16)
[2016-07-10] MEDS: FLUTICASONE PROP 0.05% NASAL SPRAY 16 GM (FLONASE) SCH (11:02)
[2016-07-10] MEDS: SIMVASTATIN 10 MG TAB PO SCH (20:16)
[2016-07-10 22:00] VITALS: BP 150/62
[2016-07-11 06:00] VITALS: BP 120/71
[2016-07-11] MEDS: HEPARIN SOD (PORCINE) 5000 UNITS/ML VIAL SC SCH ×3 (06:03→20:48)
[2016-07-11] MEDS: SLF 3 ML SYR IV SCH ×3 (06:04→20:51)
[2016-07-11 06:48] LABS: MEAN CORPUSCULAR HEMOGLOBIN 32.8 pg (27.0-33.0); MEAN CORPUSCULAR HGB CONC 32.5 g/dl (32.0-36.5); MEAN CORPUSCULAR VOLUME 100.9 fl (80.0-96.0); RED CELL DISTRIBUTION WIDTH 12.5 % (11.5-14.5); WHITE BLOOD COUNT 8.8 K/mm3 (4.0-10.0)
[2016-07-11 07:10] LABS: ANION GAP 7 MEQ/L (8-16); BLOOD UREA NITROGEN 23 MG/DL (7-18); CALCIUM LEVEL 10.1 MG/DL (8.8-10.2); CARBON DIOXIDE LEVEL 36 MEQ/L (21-32); CHLORIDE LEVEL 104 MEQ/L (98-107); CREATININE FOR GFR 1.06 MG/DL (0.70-1.30); GLOMERULAR FILTRATION RATE > 60.0 (>35); GLUCOSE, FASTING 120 MG/DL (83-110); POTASSIUM SERUM 4.2 MEQ/L (3.5-5.1); SODIUM LEVEL 147 MEQ/L (136-145)
[2016-07-11] MEDS: IPRATROPIUM 0.5MG/ALBUTEROL 2.5MG INH SOL UD 3ML (DUONEB)(J7620) NEB SCH ×3 (07:19→23:21)
[2016-07-11] MEDS: ASPIRIN 81 MG ENTERIC TAB PO SCH (08:28)
[2016-07-11] MEDS: FLUTICASONE PROP 0.05% NASAL SPRAY 16 GM (FLONASE) SCH (08:28)
[2016-07-11] MEDS: OMEPRAZOLE 20 MG CAP PO SCH (08:28)
[2016-07-11] MEDS: ACETAMINOPHEN TAB 650MG DOSE (2X325MG) PO PRN (08:28)
[2016-07-11] MEDS: MECLIZINE 25 MG TABLET PO SCH ×2 (08:28→20:49)
[2016-07-11] MEDS: LACTOBACILLUS ACIDOPHILUS CAP (BACID) PO SCH ×2 (08:28→20:48)
[2016-07-11] MEDS: NYSTATIN 500,000 U/5 ML SUSP UDC SS SCH ×4 (08:28→20:50)
[2016-07-11] MEDS: BACITRACIN OINT 30GM TOP SCH ×2 (08:29→20:50)
[2016-07-11 14:00] VITALS: BP 125/72
[2016-07-11] MEDS ORDERED: IPRASOL4 NEB (19:48)
[2016-07-11] MEDS ORDERED: NYST50SS SS (19:48)
[2016-07-11] MEDS: SIMVASTATIN 10 MG TAB PO SCH (20:49)
[2016-07-11 20:50] VITALS: O2SAT 94
[2016-07-11] MEDS: traMADol 50 MG TAB PO PRN (20:50)
[2016-07-11 22:00] VITALS: BP 136/78
[2016-07-12] MEDS: HEPARIN SOD (PORCINE) 5000 UNITS/ML VIAL SC SCH (05:12)
[2016-07-12] MEDS: SLF 3 ML SYR IV SCH (05:13)
[2016-07-12 06:00] VITALS: BP 128/73
[2016-07-12] MEDS: IPRATROPIUM 0.5MG/ALBUTEROL 2.5MG INH SOL UD 3ML (DUONEB)(J7620) NEB SCH (07:22)
[2016-07-12 07:23] VITALS: O2SAT 97
[2016-07-12 07:54] VITALS: O2SAT 96
[2016-07-12] MEDS: OMEPRAZOLE 20 MG CAP PO SCH (08:56)
[2016-07-12] MEDS: NYSTATIN 500,000 U/5 ML SUSP UDC SS SCH (08:56)
[2016-07-12] MEDS: LACTOBACILLUS ACIDOPHILUS CAP (BACID) PO SCH (08:56)
[2016-07-12] MEDS: ASPIRIN 81 MG ENTERIC TAB PO SCH (08:56)
[2016-07-12] MEDS: MECLIZINE 25 MG TABLET PO SCH (08:56)
[2016-07-12] MEDS: BACITRACIN OINT 30GM TOP SCH (09:00)
--- NOTE | 2016-07-12 10:35 | IPNPDOC ---
Text Note Date of Service The patient was seen on 07/12/16. NOTE Discharge Addendum: Patient seen and examined at bedside. No acute overnight events reported. Patient discharged as per discharge instructions. VS,Fishbone, I+O VS, Fishbone, I+O Vital Signs Date Time Temp Pulse Resp B/P (MAP) Pulse Ox O2 Delivery O2 Flow Rate FiO2 07/12/16 07:54 96 Nasal Cannula 2.0 07/12/16 06:00 98.2 95 14 128/73 (91) 07/06/16 03:31 21 I&O- Last 24 Hours up to 6 AM 07/12/16 06:00 Intake Total 590 ml Output Total 400 ml Balance 190 ml JODY ACUNA MD July 12, 2016 10:35
== END 2016-07-12 11:05 | DRG 871 ==
LOC: EDBD 02:12 → EDSEX 02:12 → M ED 03:30 → M ED INP 06:10 → M PCU 15:39 → M MS5PR 07-05 14:41
PROVIDERS: ADMIT Hospitalist; ATTEND Hospitalist
DX: A41.9 Sepsis, unspecified organism (principal); J18.9 Pneumonia, unspecified organism; N17.9 Acute kidney failure, unspecified; B37.0 Candidal stomatitis; K21.9 Gastro-esophageal reflux disease without esophagitis; E78.5 Hyperlipidemia, unspecified; I10 Essential (primary) hypertension; H91.93 Unspecified hearing loss, bilateral; J43.9 Emphysema, unspecified; E87.6 Hypokalemia; M79.671 Pain in right foot; M70.51 Other bursitis of knee, right knee; R09.02 Hypoxemia; E83.42 Hypomagnesemia; G47.33 Obstructive sleep apnea (adult) (pediatric); Z85.51 Personal history of malignant neoplasm of bladder; Z87.891 Personal history of nicotine dependence; Z79.82 Long term (current) use of aspirin; Z79.899 Other long term (current) drug therapy

== ENCOUNTER → 2016-09-21 | Outpatient (REF) | payer MEDICARE, MEDICAID ==
[~2016-09-21] MED LIST: ACET-683 PO; ASPI1TAB PO; ASPI81CH PEG; DOXY100C37 PO; FLON1SPR; FLOR250C PEG; IPRASOL4 INH; IPRASOL4 NEB; LANS30CA; MECL-86 PO; METO1TAB32 PO; MUCI30TA5 PO; NYST50SS SS; OMEP40CA2 PO; PREV30TA3 PEG; SIMV10TA2 PO; SIMV40TA2 PO; VITMTA PEG; XARE20TA PEG; ZOCO20TA PEG
--- NOTE | 2016-09-21 16:57 | REP ---
REASON: Pain and swelling. 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 Multiple ultrasonographic images of the deep Venous structures of the left thigh were obtained in the longitudinal and transverse scanned planes along with Doppler interrogative techniques and compressive techniques including augmentation. Abnormal intravenous echogenic material is seen in the deep venous structures from the common femoral vein to the popliteal veins inclusive. This echogenic material does not appear to completely occlude those aforementioned deep veins. IMPRESSION: Positive deep vein ultrasound findings involving the deep venous structures of the left thigh as described above. Signed by Janak Terrell DO 09/22/2016 09:04 A
== END ==
LOC: EDSTATUS 15:15 → M RAD 15:48
PROVIDERS: ATTEND Internal Medicine
DX: R60.9 Edema, unspecified (principal); I77.1 Stricture of artery; I72.4 Aneurysm of artery of lower extremity

== ENCOUNTER → 2016-09-29 | Outpatient (REF) ==
[2016-09-29 08:34] LABS: MEAN CORPUSCULAR HEMOGLOBIN 34.1 pg (27.0-33.0); MEAN CORPUSCULAR VOLUME 100.4 fl (80.0-96.0); RED CELL DISTRIBUTION WIDTH 16.1 % (11.5-14.5); WHITE BLOOD COUNT 7.9 K/mm3 (4.0-10.0)
[2016-09-29 09:19] LABS: ALBUMIN 2.2 GM/DL (3.2-5.2); ALBUMIN/GLOBULIN RATIO 0.56 (1.00-1.93); ALKALINE PHOSPHATASE 69 U/L (45-117); ALT/SGPT 97 U/L (12-78); ANION GAP 8 MEQ/L (8-16); AST/SGOT 93 U/L (15-37); BILIRUBIN,TOTAL 0.2 MG/DL (0.2-1.0); BLOOD UREA NITROGEN 16 MG/DL (7-18); CALCIUM LEVEL 9.2 MG/DL (8.8-10.2); CARBON DIOXIDE LEVEL 29 MEQ/L (21-32); CHLORIDE LEVEL 101 MEQ/L (98-107); CREATININE FOR GFR 0.53 MG/DL (0.70-1.30); GLOMERULAR FILTRATION RATE > 60.0 (>35); GLUCOSE, FASTING 139 MG/DL (83-110); POTASSIUM SERUM 4.1 MEQ/L (3.5-5.1); SODIUM LEVEL 138 MEQ/L (136-145); TOTAL PROTEIN 6.1 GM/DL (6.4-8.2)
== END ==
LOC: SKLAB2 07:00
PROVIDERS: ATTEND Internal Medicine
DX: D64.9 Anemia, unspecified (principal)

== ENCOUNTER → 2016-10-06 | Outpatient (REF) ==
[2016-10-06 08:21] LABS: MEAN CORPUSCULAR HEMOGLOBIN 34.6 pg (27.0-33.0); MEAN CORPUSCULAR HGB CONC 33.9 g/dl (32.0-36.5); MEAN CORPUSCULAR VOLUME 102.1 fl (80.0-96.0); RED CELL DISTRIBUTION WIDTH 16.4 % (11.5-14.5); WHITE BLOOD COUNT 6.3 K/mm3 (4.0-10.0)
[2016-10-06 08:49] LABS: ALBUMIN 2.7 GM/DL (3.2-5.2); ALBUMIN/GLOBULIN RATIO 0.82 (1.00-1.93); ALKALINE PHOSPHATASE 76 U/L (45-117); ALT/SGPT 28 U/L (12-78); ANION GAP 9 MEQ/L (8-16); AST/SGOT 17 U/L (15-37); BILIRUBIN,DIRECT 0.1 MG/DL (0.0-0.2); BILIRUBIN,TOTAL 0.2 MG/DL (0.2-1.0); BLOOD UREA NITROGEN 22 MG/DL (7-18); CALCIUM LEVEL 9.1 MG/DL (8.8-10.2); CARBON DIOXIDE LEVEL 29 MEQ/L (21-32); CHLORIDE LEVEL 98 MEQ/L (98-107); CREATININE FOR GFR 0.58 MG/DL (0.70-1.30); GLOMERULAR FILTRATION RATE > 60.0 (>35); GLUCOSE, FASTING 89 MG/DL (83-110); POTASSIUM SERUM 4.2 MEQ/L (3.5-5.1); SODIUM LEVEL 136 MEQ/L (136-145)
[2016-10-06 11:56] LABS: VITAMIN B12 LEVEL 552 PG/ML (247-911)
== END ==
LOC: SKLAB2 07:00
PROVIDERS: ATTEND Internal Medicine
DX: D64.9 Anemia, unspecified (principal)

== ENCOUNTER → 2016-10-07 | Outpatient (REF) | payer MEDICAID, MEDICARE ==
[~2016-10-07] MED LIST changes: +E-Z-PAQUE 96% w/w SUSP 176GM BTL As Ordered ONE; +VARIBAR NECTAR 40% w/v 240ML SUSP BTL As Ordered ONE; +VARIBAR PUDDING 40% w/v 230ML TUBE As Ordered ONE
--- NOTE | 2016-10-07 15:30 | REP ---
COOKIE SWALLOW: The procedure was performed under the direct supervision of Dr. Seay. The procedure was performed with Zenobia Doshi from speech pathology present. 5 mL aliquots of pudding and honey consistency barium was administered. With honey consistency barium, there is penetration. A detailed report of this examination will be provided by speech pathology. 1 minute and 34 seconds of fluoroscopy time was utilized for this procedure. Reviewed by JOVITA Garcia 10/07/2016 03:52 PEdited and Signed by Dwight Seay MD 10/07/2016 04:16 P
== END ==
LOC: EDSTATUS 10-04 11:30 → M ST 10:36
PROVIDERS: ATTEND Internal Medicine
DX: R93.3 Abnormal findings on diagnostic imaging of other parts of digestive tract (principal)

== ENCOUNTER → 2016-10-13 | Outpatient (REF) ==
[~2016-10-13] MED LIST changes: -E-Z-PAQUE 96% w/w SUSP 176GM BTL As Ordered ONE; -VARIBAR NECTAR 40% w/v 240ML SUSP BTL As Ordered ONE; -VARIBAR PUDDING 40% w/v 230ML TUBE As Ordered ONE
[2016-10-13 08:42] LABS: MEAN CORPUSCULAR HEMOGLOBIN 34.5 pg (27.0-33.0); MEAN CORPUSCULAR HGB CONC 33.1 g/dl (32.0-36.5); MEAN CORPUSCULAR VOLUME 104.2 fl (80.0-96.0); RED CELL DISTRIBUTION WIDTH 16.4 % (11.5-14.5); WHITE BLOOD COUNT 5.2 K/mm3 (4.0-10.0)
[2016-10-13 09:07] LABS: ALBUMIN 2.7 GM/DL (3.2-5.2); ALBUMIN/GLOBULIN RATIO 0.84 (1.00-1.93); ALKALINE PHOSPHATASE 64 U/L (45-117); ALT/SGPT 15 U/L (12-78); ANION GAP 9 MEQ/L (8-16); AST/SGOT 13 U/L (15-37); BILIRUBIN,TOTAL 0.2 MG/DL (0.2-1.0); BLOOD UREA NITROGEN 20 MG/DL (7-18); CARBON DIOXIDE LEVEL 30 MEQ/L (21-32); CHLORIDE LEVEL 103 MEQ/L (98-107); CREATININE FOR GFR 0.62 MG/DL (0.70-1.30); GLOMERULAR FILTRATION RATE > 60.0 (>35); GLUCOSE, FASTING 116 MG/DL (83-110); POTASSIUM SERUM 4.2 MEQ/L (3.5-5.1); SODIUM LEVEL 142 MEQ/L (136-145); TOTAL PROTEIN 5.9 GM/DL (6.4-8.2)
== END ==
LOC: SKLAB2 07:00
PROVIDERS: ATTEND Internal Medicine
DX: D64.9 Anemia, unspecified (principal)

== ENCOUNTER → 2016-10-20 | Outpatient (REF) ==
[2016-10-20 09:24] LABS: MEAN CORPUSCULAR HEMOGLOBIN 34.9 pg (27.0-33.0); MEAN CORPUSCULAR HGB CONC 33.2 g/dl (32.0-36.5); MEAN CORPUSCULAR VOLUME 104.9 fl (80.0-96.0); RED CELL DISTRIBUTION WIDTH 15.4 % (11.5-14.5); WHITE BLOOD COUNT 4.1 K/mm3 (4.0-10.0)
[2016-10-20 09:39] LABS: ALBUMIN 2.7 GM/DL (3.2-5.2); ALBUMIN/GLOBULIN RATIO 0.96 (1.00-1.93); ALKALINE PHOSPHATASE 56 U/L (45-117); ALT/SGPT 12 U/L (12-78); ANION GAP 8 MEQ/L (8-16); AST/SGOT 10 U/L (15-37); BILIRUBIN,TOTAL 0.2 MG/DL (0.2-1.0); BLOOD UREA NITROGEN 21 MG/DL (7-18); CALCIUM LEVEL 8.9 MG/DL (8.8-10.2); CARBON DIOXIDE LEVEL 29 MEQ/L (21-32); CHLORIDE LEVEL 106 MEQ/L (98-107); CREATININE FOR GFR 0.58 MG/DL (0.70-1.30); GLOMERULAR FILTRATION RATE > 60.0 (>35); GLUCOSE, FASTING 125 MG/DL (83-110); POTASSIUM SERUM 4.3 MEQ/L (3.5-5.1); SODIUM LEVEL 143 MEQ/L (136-145); TOTAL PROTEIN 5.5 GM/DL (6.4-8.2)
== END ==
LOC: SKLAB2 09:00
PROVIDERS: ATTEND Internal Medicine
DX: D64.9 Anemia, unspecified (principal)

== ENCOUNTER → 2016-10-27 | Outpatient (REF) ==
[2016-10-27 09:38] LABS: ALBUMIN 2.9 GM/DL (3.2-5.2); ALBUMIN/GLOBULIN RATIO 1.04 (1.00-1.93); ALKALINE PHOSPHATASE 56 U/L (45-117); ALT/SGPT 12 U/L (12-78); ANION GAP 10 MEQ/L (8-16); AST/SGOT 14 U/L (15-37); BILIRUBIN,TOTAL 0.3 MG/DL (0.2-1.0); BLOOD UREA NITROGEN 20 MG/DL (7-18); CALCIUM LEVEL 8.5 MG/DL (8.8-10.2); CARBON DIOXIDE LEVEL 28 MEQ/L (21-32); CHLORIDE LEVEL 107 MEQ/L (98-107); CREATININE FOR GFR 0.63 MG/DL (0.70-1.30); GLOMERULAR FILTRATION RATE > 60.0 (>35); GLUCOSE, FASTING 95 MG/DL (83-110); MEAN CORPUSCULAR HEMOGLOBIN 34.4 pg (27.0-33.0); MEAN CORPUSCULAR HGB CONC 33.3 g/dl (32.0-36.5); MEAN CORPUSCULAR VOLUME 103.2 fl (80.0-96.0); POTASSIUM SERUM 4.1 MEQ/L (3.5-5.1); RED CELL DISTRIBUTION WIDTH 14.5 % (11.5-14.5); SODIUM LEVEL 145 MEQ/L (136-145); TOTAL PROTEIN 5.7 GM/DL (6.4-8.2); WHITE BLOOD COUNT 4.4 K/mm3 (4.0-10.0)
== END ==
LOC: SKLAB2 08:00
PROVIDERS: ATTEND Internal Medicine
DX: D64.9 Anemia, unspecified (principal)

== ENCOUNTER → 2016-11-03 | Outpatient (REF) | payer MEDICARE, MEDICAID ==
[2016-11-03 08:34] LABS: MEAN CORPUSCULAR HEMOGLOBIN 34.1 pg (27.0-33.0); MEAN CORPUSCULAR HGB CONC 33.1 g/dl (32.0-36.5); MEAN CORPUSCULAR VOLUME 102.9 fl (80.0-96.0); RED CELL DISTRIBUTION WIDTH 14.5 % (11.5-14.5); WHITE BLOOD COUNT 5.6 K/mm3 (4.0-10.0)
[2016-11-03 08:56] LABS: ALBUMIN 3.1 GM/DL (3.2-5.2); ALBUMIN/GLOBULIN RATIO 0.78 (1.00-1.93); ALKALINE PHOSPHATASE 63 U/L (45-117); ALT/SGPT 12 U/L (12-78); ANION GAP 7 MEQ/L (8-16); AST/SGOT 16 U/L (15-37); BILIRUBIN,TOTAL 0.3 MG/DL (0.2-1.0); BLOOD UREA NITROGEN 23 MG/DL (7-18); CALCIUM LEVEL 9.1 MG/DL (8.8-10.2); CARBON DIOXIDE LEVEL 30 MEQ/L (21-32); CHLORIDE LEVEL 106 MEQ/L (98-107); CREATININE FOR GFR 0.69 MG/DL (0.70-1.30); GLOMERULAR FILTRATION RATE > 60.0 (>35); GLUCOSE, FASTING 98 MG/DL (83-110); POTASSIUM SERUM 4.3 MEQ/L (3.5-5.1); SODIUM LEVEL 143 MEQ/L (136-145); TOTAL PROTEIN 7.1 GM/DL (6.4-8.2)
== END ==
LOC: SKLAB2 07:30
PROVIDERS: ATTEND Internal Medicine
DX: D64.9 Anemia, unspecified (principal)

== ENCOUNTER 2016-11-24 11:23 | Inpatient (IN) | payer MEDICARE, MEDICAID ==
[~2016-11-24] VITALS: Ht 182.9 cm; Wt 65.3 kg
[~2016-11-24 11:23] MED LIST changes: -ASPI81CH PEG; -DOXY100C37 PO; -FLOR250C PEG; -IPRASOL4 INH; -LANS30CA; -PREV30TA3 PEG; -SIMV40TA2 PO; -VITMTA PEG; -XARE20TA PEG; -ZOCO20TA PEG
[2016-11-24] MEDS ORDERED: SIMV40TA2 PO (11:42)
[2016-11-24] MEDS ORDERED: FLOR250C PEG (11:42)
[2016-11-24] MEDS ORDERED: LANS30CA (11:42)
[2016-11-24] MEDS ORDERED: XARE20TA PEG (11:42)
[2016-11-24 12:33] LABS: BASO % 0.4 % (0.0-1.0); EOS # 0.2 K/mm3 (0.0-0.50); EOS % 5.1 % (0.0-3.0); LARGE UNSTAINED CELL # 0.1 K/mm3 (0.0-0.4); LARGE UNSTAINED CELL % 1.6 % (0.0-4.0); LYMPH # 0.6 K/mm3 (1.5-4.5); LYMPH % 12.8 % (24.0-44.0); MEAN CORPUSCULAR HGB CONC 32.8 g/dl (32.0-36.5); MEAN CORPUSCULAR VOLUME 100.6 fl (80.0-96.0); MONO # 0.3 K/mm3 (0.0-0.8); MONO % 8.1 % (0.0-5.0); NEUTROPHILS # 2.9 K/mm3 (1.8-7.7); NEUTROPHILS % 72.1 % (36.0-66.0); PLATELET COUNT, AUTOMATED 227 k/mm3 (150-450); RED CELL DISTRIBUTION WIDTH 14.1 % (11.5-14.5)
[2016-11-24 13:04] LABS: ALBUMIN 3.2 GM/DL (3.2-5.2); ALBUMIN/GLOBULIN RATIO 0.97 (1.00-1.93); ALKALINE PHOSPHATASE 64 U/L (45-117); ALT/SGPT 17 U/L (12-78); ANION GAP 10 MEQ/L (8-16); AST/SGOT 18 U/L (15-37); BILIRUBIN,DIRECT < 0.1 MG/DL (0.0-0.2); BILIRUBIN,TOTAL 0.2 MG/DL (0.2-1.0); BLOOD UREA NITROGEN 25 MG/DL (7-18); CARBON DIOXIDE LEVEL 29 MEQ/L (21-32); CHLORIDE LEVEL 106 MEQ/L (98-107); CREATININE FOR GFR 0.65 MG/DL (0.70-1.30); GLOMERULAR FILTRATION RATE > 60.0 (>35); GLUCOSE, FASTING 96 MG/DL (83-110); POTASSIUM SERUM 3.9 MEQ/L (3.5-5.1); SODIUM LEVEL 145 MEQ/L (136-145); TOTAL PROTEIN 6.5 GM/DL (6.4-8.2)
[2016-11-24] MEDS: NS 1,000 ML IV SCH (16:10)
[2016-11-24 18:44] LABS: MEAN CORPUSCULAR HEMOGLOBIN 33.5 pg (27.0-33.0); MEAN CORPUSCULAR HGB CONC 33.5 g/dl (32.0-36.5); RED CELL DISTRIBUTION WIDTH 13.8 % (11.5-14.5)
[2016-11-24] MEDS ORDERED: VITMTA PEG (19:30)
[2016-11-24] MEDS ORDERED: ZOCO20TA PEG (19:30)
[2016-11-24] MEDS ORDERED: ASPI81CH PEG (19:30)
[2016-11-24] MEDS ORDERED: PREV30TA3 PEG (19:30)
[2016-11-24] MEDS ORDERED: IPRASOL4 INH (19:30)
[2016-11-24 20:20] VITALS: BP 159/75
--- NOTE | 2016-11-24 20:45 | HPE ---
DATE OF ADMISSION: 11/24/2016 PRIMARY CARE PROVIDER: Dr. Tiago Jha ATTENDING PHYSICIAN: Dr. Cross CHIEF COMPLAINT: Altered mental status. HISTORY: Delfin Dunbar was just discharged from [facility] from 11/17. He had been at [facility] for subacute rehabilitation, had a deep vein thrombosis of his left leg, had been on Xarelto, had some encephalopathy related to hyponatremia, was diagnosed with dysphagia, had a percutaneous endoscopic gastrostomy tube placed and was purely dependent on percutaneous endoscopic gastrostomy tube for nutrition and medications. Apparently was all set to go home, and when Public Health came in they found he was taking inappropriate doses of his medication, from what I understand from the ER, he has been taking them four times a day. He is not able to take me what he is taking. He is on Xarelto, which would mean a significant overdose of that. There is no active bleeding. MEDICATIONS: - simvastatin 20 mg daily - Probiotic Florastor 250 mg twice a day - Flonase spray - Xarelto 20 mg daily - baby aspirin 81 mg - Prevacid 30 mg daily - DuoNebs every 8 hours He is supposed to be flushing his feeding tube with 75 mL of water before and after feedings and after each medication. Feeding is Osmolyte 1.2 360 mg per percutaneous endoscopic gastrostomy tube 6 Am, 10 AM, 2 PM, 6 PM and 10 PM five times a day. He has a right lung nodule, but he is supposed to have a CT of the chest done in March. He has acute renal ultrasound for a right renal cyst that is supposed to be done in May, both through Dr. Jha. He is on aspiration precautions, head in bed elevated 30 degrees. PAST MEDICAL HISTORY: Sepsis from community acquired pneumonia. Necrotizing right upper lobe pneumonia. Oral candidiasis. Hypertension. Hyperlipidemia. Gastroesophageal reflux disease. Obstructive sleep apnea. History of acute kidney injury. History of bladder cancer. Electrolyte abnormalities in the past. ALLERGIES: None known. PHYSICAL EXAMINATION: 129/65, pulse 76, respiratory rate 18, 93% on oxygen saturation, 97.9 degrees. GENERAL: He is resting comfortably in bed, he is vague and cannot answer questions. He can not tell me why he has a percutaneous endoscopic gastrostomy tube in or any of his medications. EYES: Pupils equal, round, reactive to light. NECK: Supple. LUNGS: Clear. HEART: Regular rate and rhythm. 1/6 systolic ejection murmur. ABDOMEN: Soft, non-tender. No masses. Percutaneous endoscopic gastrostomy tube in place. EXTREMITIES: He has trace peripheral edema of the left leg. None on the right. No epistaxis or ecchymosis. LABORATORY DATA: White count 4, hemoglobin 9.9, platelets 272, sodium 145, potassium 3.9. BUN 25, creatinine 0.6, glucose 96. IMPRESSION: Inadvertant overdose of medications due to altered mental status. PLAN: Despite the best efforts of discharge planners (Comprehensive discharge note is appended to the chart and reviewed). Patient was unable to adequately care for himself on his own, his is apparently at [facility]. The immediate problem he may have given himself four times a day dosing of Xarelto and baby aspirin. There is no active bleeding but his hemoglobin is down to 9.9 but his baseline (when he is not dehydrated) looks to be about 9.6, so I do not think he is that far off. I think at this point he can simply be observed, give the Xarelto sufficient time to clear from the system and then restart at the appropriate dose. His simvastatin can probably be restarted in 3-4 days, his Prevacid can probably be restarted tomorrow. I am not sure I would put him back on the aspirin together with Xarelto until we are sure he can dose himself correctly. USP placement is a bigger problem as he has been demonstrated not to be able to dose these medications safely at home. Patient and Family Services (PFS) will have to get involved.
[2016-11-24 23:46] LABS: MEAN CORPUSCULAR HGB CONC 32.7 g/dl (32.0-36.5); MEAN CORPUSCULAR VOLUME 100.9 fl (80.0-96.0); RED CELL DISTRIBUTION WIDTH 14.1 % (11.5-14.5); WHITE BLOOD COUNT 4.5 K/mm3 (4.0-10.0)
[2016-11-25 05:15] VITALS: BP 114/61
[2016-11-25] MEDS: NS 1,000 ML IV SCH ×2 (05:49→13:23)
[2016-11-25 06:55] LABS: MEAN CORPUSCULAR HEMOGLOBIN 33.9 pg (27.0-33.0); MEAN CORPUSCULAR VOLUME 99.6 fl (80.0-96.0); RED CELL DISTRIBUTION WIDTH 13.8 % (11.5-14.5); WHITE BLOOD COUNT 3.9 K/mm3 (4.0-10.0)
[2016-11-25 07:10] LABS: ANION GAP 9 MEQ/L (8-16); BLOOD UREA NITROGEN 16 MG/DL (7-18); CALCIUM LEVEL 8.5 MG/DL (8.8-10.2); CARBON DIOXIDE LEVEL 28 MEQ/L (21-32); CHLORIDE LEVEL 111 MEQ/L (98-107); CREATININE FOR GFR 0.62 MG/DL (0.70-1.30); GLOMERULAR FILTRATION RATE > 60.0 (>35); GLUCOSE, FASTING 85 MG/DL (83-110); POTASSIUM SERUM 3.7 MEQ/L (3.5-5.1); SODIUM LEVEL 148 MEQ/L (136-145)
[2016-11-25 09:25] LABS: ALBUMIN 2.6 GM/DL (3.2-5.2); ALKALINE PHOSPHATASE 51 U/L (45-117); ALT/SGPT 15 U/L (12-78); AST/SGOT 14 U/L (15-37); BILIRUBIN,DIRECT < 0.1 MG/DL (0.0-0.2); BILIRUBIN,TOTAL 0.2 MG/DL (0.2-1.0); TOTAL PROTEIN 5.5 GM/DL (6.4-8.2)
[2016-11-25 11:43] LABS: MEAN CORPUSCULAR HEMOGLOBIN 34.1 pg (27.0-33.0); MEAN CORPUSCULAR HGB CONC 33.9 g/dl (32.0-36.5); MEAN CORPUSCULAR VOLUME 100.6 fl (80.0-96.0); RED CELL DISTRIBUTION WIDTH 13.8 % (11.5-14.5); WHITE BLOOD COUNT 4.5 K/mm3 (4.0-10.0)
[2016-11-25 14:00] VITALS: BP 114/59
--- NOTE | 2016-11-25 17:42 | IPN ---
DATE: 11/25/2016 Mr. Dunbar is feeling well this morning. Says he is not clear why he is brought in to the hospital, but he took the advice of his home care nurses and did come to be seen. It would appear as though he may have been having some difficulty with medications and/or feeds. Temperature 98.9, pulse 71, respiratory rate 16, blood pressure 114/61, 91% on room air. Awake, appropriately interactive, pleasantly conversant. Apparently, he has been out of bed and moving around with some assistance. Mucous membranes moist. Neck supple. Breathing symmetrical and rested. Heart is distant sounding. Normal S1, S2. Abdomen soft, doughy, nontender. There is some crusting at the site of his percutaneous endoscopic gastrostomy tube, without any erythema. There is no tenderness. There is no drainage. White cell count is 4.5, hemoglobin 10.2, platelets 208. BUN 16, creatinine 0.62, sodium 148. ASSESSMENT: Is as follows: This is an 86-year-old thought to have an inadvertent overdose of medications, which, at this point, seems unlikely. His medications were tightly controlled, but is having difficulty using his percutaneous endoscopic gastrostomy tube and achieving adequate nutrition and/or medication use. PLAN: Will be as follows: 1. Patient has been unable to care for himself without assistance. He is able to physically perform the task involved in feeding and taking medications when prompted, but is having difficulty performing a high enough level of mental function to ensure that he is getting all of his feeds and remember to take his medications. It does appear as though he has taken an overdose of any medication. 2. This case has been discussed at length at multidisciplinary rounds with nursing and social work, and we will need a more complete home plan or to pursue placement.
[2016-11-25] MEDS: RIVAROXABAN 20 MG TAB (XARELTO) PEG SCH (17:53)
[2016-11-25 19:55] VITALS: BP 115/59
[2016-11-25] MEDS: SIMVASTATIN 20 MG TAB PEG SCH (20:07)
[2016-11-26 05:18] VITALS: BP 120/65
[2016-11-26 06:36] LABS: BASO % 0.5 % (0.0-1.0); EOS # 0.2 K/mm3 (0.0-0.50); LARGE UNSTAINED CELL # 0.1 K/mm3 (0.0-0.4); LARGE UNSTAINED CELL % 1.8 % (0.0-4.0); LYMPH # 0.8 K/mm3 (1.5-4.5); MEAN CORPUSCULAR HEMOGLOBIN 32.9 pg (27.0-33.0); MEAN CORPUSCULAR VOLUME 99.7 fl (80.0-96.0); MONO # 0.3 K/mm3 (0.0-0.8); MONO % 7.7 % (0.0-5.0); NEUTROPHILS # 2.7 K/mm3 (1.8-7.7); NEUTROPHILS % 68.1 % (36.0-66.0); PLATELET COUNT, AUTOMATED 210 k/mm3 (150-450); RED CELL DISTRIBUTION WIDTH 14.1 % (11.5-14.5)
[2016-11-26 06:47] LABS: ANION GAP 8 MEQ/L (8-16); BLOOD UREA NITROGEN 15 MG/DL (7-18); CARBON DIOXIDE LEVEL 28 MEQ/L (21-32); CHLORIDE LEVEL 110 MEQ/L (98-107); CREATININE FOR GFR 0.58 MG/DL (0.70-1.30); GLOMERULAR FILTRATION RATE > 60.0 (>35); GLUCOSE, FASTING 100 MG/DL (83-110); SODIUM LEVEL 146 MEQ/L (136-145)
[2016-11-26] MEDS ORDERED: INFLUENZA VIRUS VACCINE HIGH DOSE 0.5 ML SYRINGE (90662) IM ONE (09:00)
[2016-11-26] MEDS: ASPIRIN 81 MG CHEW TABLET PEG SCH (09:00)
[2016-11-26] MEDS: LANSOPRAZOLE SUSPENSION 30 MG/10 ML ORAL SYRINGE (FIRST-LANSOPRAZOLE) PEG SCH (09:09)
[2016-11-26] MEDS: MOM 30ML SUSPENSION UDC PO PRN (09:09)
[2016-11-26] MEDS: MULTIVITAMINS/MINERALS THERAP 1 TAB PEG SCH (09:10)
[2016-11-26] MEDS: FLUTICASONE PROP 0.05% NASAL SPRAY 16 GM (FLONASE) SCH (09:10)
[2016-11-26 14:00] VITALS: BP 116/56
[2016-11-26] MEDS: RIVAROXABAN 20 MG TAB (XARELTO) PEG SCH (17:24)
--- NOTE | 2016-11-26 20:19 | IPN ---
DATE: 11/26/2016 SUBJECTIVE: Mr. Dunbar is awake and interactive this morning. Pleasant, reasonable historian. He has been working with staff to do his feeds. OBJECTIVE: VITAL SIGNS: Temperature is 98.3, pulse 72, respiratory rate 16, blood pressure 120/65, 98% on room air. No bowel movements noted. GENERAL: He is awake, approximately interactive, pleasant conversant, somewhat tangential in his thinking and forgetful, but clearly remembers me from yesterday. HEENT: Mucous membranes moist. NECK: Supple. LUNGS: Breathing is symmetrical. I to E ratio is 1:3. No accessory muscle use. Speaking in complete sentences, laughing, joking. HEART: Distant sounding. ABDOMEN: Soft, doughy, nontender. Active bowel sounds. LABORATORY DATA: White cell count 4.0, hemoglobin 10.0, platelets 210. Sodium is 146 trending downward. ASSESSMENT: An 86-year-old thought to have an inadvertent overdose of medication with the real issue that he is unable to manage his higher-level function of PEG tube PLAN: 1. The patient has been unable to care for himself without assistance. We will look to create a reasonable home plan for this. Staff working with him intensely to ensure that he can manage the physical paths associated with giving his own medications and feeds and flushes via percutaneous endoscopic gastrostomy (PEG) tube. 2. The patient has hypertension. 3. The patient has hyperlipidemia. 4. The patient has gastroesophageal reflux disease (GERD). 5. The patient has resolving hypernatremia. MTDD
[2016-11-26] MEDS: SIMVASTATIN 20 MG TAB PEG SCH (21:00)
[2016-11-26 22:00] VITALS: BP 117/62
[2016-11-27 06:00] VITALS: BP 111/62
[2016-11-27] MEDS: LANSOPRAZOLE SUSPENSION 30 MG/10 ML ORAL SYRINGE (FIRST-LANSOPRAZOLE) PEG SCH (10:45)
[2016-11-27] MEDS: ASPIRIN 81 MG CHEW TABLET PEG SCH (10:45)
[2016-11-27] MEDS: MULTIVITAMINS/MINERALS THERAP 1 TAB PEG SCH (10:45)
[2016-11-27] MEDS: FLUTICASONE PROP 0.05% NASAL SPRAY 16 GM (FLONASE) SCH (10:46)
[2016-11-27 14:00] VITALS: BP 105/61
--- NOTE | 2016-11-27 16:48 | IPN ---
DATE: 11/27/2016 Mr. Dunbar has no complaints this morning. No issues are noted by the staff and he has been assisting with his feeds and medications without difficulty. Temperature is 97.7, pulse 80, respiratory rate 18, blood pressure 111/62, 91% on room air. Sleepy but he is aroused, in no acute distress. His heart is irregularly irregular. Breathing is symmetrical and rested. Speaking in complete sentences. Abdomen is soft, nontender. There are no laboratories today. ASSESSMENT: This is an 86-year-old thought to have an inadvertent overdose of medication with the real issue noted that he is unable to manage executive thought necessary to handle his percutaneous endoscopic gastrostomy (PEG) tube. PLAN: 1. The patient has been unable to care for himself at home without assistance. He is able to manage the physical task associated with percutaneous endoscopic gastrostomy (PEG) tube but does not seem to be able to manage the executive function associated with the PEG tube. We will reassess discharge planning with the multidisciplinary team tomorrow. 2. The patient has hypertension. 3. The patient has hyperlipidemia. 4. The patient has gastroesophageal reflux disease (GERD). 5. We can repeat laboratories tomorrow to assess his hypernatremia which should be improving with regular feeds.
[2016-11-27] MEDS: RIVAROXABAN 20 MG TAB (XARELTO) PEG SCH (17:58)
[2016-11-27] MEDS: SIMVASTATIN 20 MG TAB PEG SCH (21:53)
[2016-11-27 22:00] VITALS: BP 105/53
[2016-11-28 06:00] VITALS: BP 109/60
[2016-11-28 06:15] LABS: MEAN CORPUSCULAR HEMOGLOBIN 33.8 pg (27.0-33.0); MEAN CORPUSCULAR HGB CONC 34.3 g/dl (32.0-36.5); MEAN CORPUSCULAR VOLUME 98.5 fl (80.0-96.0); RED CELL DISTRIBUTION WIDTH 13.7 % (11.5-14.5)
[2016-11-28 06:29] LABS: ANION GAP 4 MEQ/L (8-16); BLOOD UREA NITROGEN 23 MG/DL (7-18); CALCIUM LEVEL 9.5 MG/DL (8.8-10.2); CARBON DIOXIDE LEVEL 33 MEQ/L (21-32); CHLORIDE LEVEL 106 MEQ/L (98-107); CREATININE FOR GFR 0.74 MG/DL (0.70-1.30); GLOMERULAR FILTRATION RATE > 60.0 (>35); GLUCOSE, FASTING 96 MG/DL (83-110); POTASSIUM SERUM 4.1 MEQ/L (3.5-5.1); SODIUM LEVEL 143 MEQ/L (136-145)
[2016-11-28] MEDS: MULTIVITAMINS/MINERALS THERAP 1 TAB PEG SCH (10:09)
[2016-11-28] MEDS: ASPIRIN 81 MG CHEW TABLET PEG SCH (10:09)
[2016-11-28] MEDS: FLUTICASONE PROP 0.05% NASAL SPRAY 16 GM (FLONASE) SCH (10:11)
[2016-11-28] MEDS: LANSOPRAZOLE SUSPENSION 30 MG/10 ML ORAL SYRINGE (FIRST-LANSOPRAZOLE) PEG SCH (10:11)
[2016-11-28 14:00] VITALS: BP 112/64
--- NOTE | 2016-11-28 14:04 | IPN ---
DATE: 11/28/2016 Mr. Dunbar is feeling well. He has no complaints. No chest pain. No shortness of breath. He has been doing his own feeds. Temperature is 97, pulse 84, respiratory rate 18, blood pressure 101/60, 94% on room air. Input and output notable for a negative fluid balance of -100. No bowel movements thus far recorded. He is awake, appropriately interactive, pleasantly conversant. Somewhat tangential in his speech today. Breathing is symmetrical and rested. Heart is distant sounding. Abdomen is soft, doughy. White cell count 4.0, hemoglobin 10.3, platelets 237, BUN 23, creatinine 0.7. ASSESSMENT: This is an 86-year-old thought to have an inadvertent overdose of medication with the real issue noted that he is unable to manage executive thought necessary to handle his percutaneous endoscopic gastrostomy (PEG) tube. PLAN: 1. It was thought that perhaps it would be easier to manage his tube if he did not have so many feedings per day, so I am going to shorten his regimen into four feedings per day if he can tolerate it and then perhaps the ultimate goal could be two to three feedings a day, although given the volumes that he is taking that might be a bridge too far. 2. The patient has hypertension. 3. The patient has hyperlipidemia. 4. The patient has gastroesophageal reflux disease (GERD). The patient's hypernatremia has resolved.
[2016-11-28] MEDS: RIVAROXABAN 20 MG TAB (XARELTO) PEG SCH (19:26)
[2016-11-28] MEDS: SIMVASTATIN 20 MG TAB PEG SCH (20:10)
[2016-11-28 22:00] VITALS: BP 114/57
[2016-11-29 06:00] VITALS: BP 125/65
[2016-11-29 09:00] VITALS: BP 112/61
[2016-11-29] MEDS: ASPIRIN 81 MG CHEW TABLET PEG SCH (10:04)
[2016-11-29] MEDS: FLUTICASONE PROP 0.05% NASAL SPRAY 16 GM (FLONASE) SCH (10:04)
[2016-11-29] MEDS: MOM 30ML SUSPENSION UDC PO PRN (10:04)
[2016-11-29] MEDS: MULTIVITAMINS/MINERALS THERAP 1 TAB PEG SCH (10:04)
[2016-11-29] MEDS: LANSOPRAZOLE SUSPENSION 30 MG/10 ML ORAL SYRINGE (FIRST-LANSOPRAZOLE) PEG SCH (10:05)
--- NOTE | 2016-11-29 13:08 | IPN ---
DATE: 11/29/2016 Mr. Dunbar has no complaints. He would like to go home. No chest pain. No shortness of breath. Temperature is 98.4, pulse 85, respiratory rate 18, blood pressure 112/62, 95% on room air. Input and output notable for a negative fluid balance of -100. Nine voids yesterday. He is awake, appropriately interactive. Breathing is symmetrical and rested. He is speaking in complete sentences with no accessory muscle use. Abdomen is soft, doughy, nontender. White cell count 4, hemoglobin 10.3 as of yesterday, and BUN 23, creatinine 0.74 as of yesterday. My assessment is as follows: This is an 86-year-old thought to have inadvertent overdose of medication with the real issue noted that he is unable to manage the executive thought necessary to handle his percutaneous endoscopic gastrostomy (PEG) tube feedings. Plan is as follows: 1. Decrease the frequency of his feeds suggesting that he would benefit from an aid for 12 hours a day to manage his feeds. Family at this point does not have the where with all to provide that care themselves. 2. Patient has hypertension. 3. Patient has hyperlipidemia. 4. Patient has gastroesophageal reflux disease (GERD). 5. Patient was discussed at multidisciplinary rounds. JESÚS
[2016-11-29 14:00] VITALS: BP 118/61
[2016-11-29] MEDS: RIVAROXABAN 20 MG TAB (XARELTO) PEG SCH (17:38)
[2016-11-29] MEDS: SIMVASTATIN 20 MG TAB PEG SCH (20:03)
[2016-11-29 22:00] VITALS: BP 107/56
[2016-11-30 06:00] VITALS: BP 109/65
[2016-11-30] MEDS: MULTIVITAMINS/MINERALS THERAP 1 TAB PEG SCH (08:56)
[2016-11-30] MEDS: ASPIRIN 81 MG CHEW TABLET PEG SCH (08:56)
[2016-11-30] MEDS: FLUTICASONE PROP 0.05% NASAL SPRAY 16 GM (FLONASE) SCH (08:57)
[2016-11-30] MEDS: LANSOPRAZOLE SUSPENSION 30 MG/10 ML ORAL SYRINGE (FIRST-LANSOPRAZOLE) PEG SCH (09:36)
[2016-11-30 14:00] VITALS: BP 113/58
--- NOTE | 2016-12-03 09:27 | DSES ---
DATE OF ADMISSION: 11/25/2016 DATE OF DISCHARGE: 11/30/2016 There were no specialists involved in care. No complications during stay. No procedures performed during stay. DISCHARGE DIAGNOSES: 1. Inability to care for himself at home. 2. Chronic dysphagia, on percutaneous endoscopic gastrostomy (PEG) tube. 3. Right lung nodule. 4. Right renal cyst. 5. History of right upper lobe pneumonia. 6. Hypertension. 7. Hyperlipidemia. 8. Gastroesophageal reflux disease (GERD). 9. Obstructive sleep apnea (LINDSAY). 10. History of bladder cancer. FOLLOWING IS SUMMARY OF HIS PRESENTATION: This is an 86-year-old just discharged from [facility] for subacute rehabilitation, went home with a PEG tube, was physically able to perform his feeds. Did have some learning issues with crushing medications, but was forgetting to do feeds and was not following through with his treatments appropriately. He was brought to the hospital for evaluation and was initially thought to have taken an overdose, which was later found to be inaccurate. He worked with therapy and with the nurses and was able to show the ability to use the PEG tube but still had difficulty with higher level executive function as needed to remember timing and management and was thought to benefit from an aide at home to assist with this issue. Was in the process of trying to get one of those aides from the insurance company and, in the meantime, the family has identified a person that is going to be able to help Mr. Dunbar so today he will be discharged. On the day of discharge, he is feeling well, has no complaints of pain. No complaints of chest pain or shortness of breath. Temperature 98.5, pulse 82, respiratory rate 18, blood pressure 109/65, 92% on room air. There were no labs on the day of discharge. DISCHARGE INSTRUCTIONS: Include the following: Followup with Dr. Jha within 1 week. Continue tube feedings as ordered. Activity as tolerated. He is being discharged with the expectation that he will have an aide at home to help him with his feeds. Continue: - DuoNebs every 8 hours as needed for shortness of breath - aspirin 81 mg by PEG tube every morning - Flonase nasally daily - Prevacid 30 mg by PEG tube daily - Xarelto 20 mg by PEG tube daily Discontinue the multivitamin, discontinue the Zocor at the request of the family, and discontinue the yeast extract. He was given the influenza vaccine during his stay.
[2017-01-10] MEDS ORDERED: DOXY100C37 PO (17:48)
== END 2016-11-30 14:22 | disposition home or self-care (01) | DRG 918 ==
LOC: M ED 11:23 → M ED INP 17:12 → M MSPAV 20:21 → OBSVTOIN 11-25 12:43
PROVIDERS: ADMIT Family Medicine; ATTEND Internal Medicine
DX: T45.511A Poisoning by anticoagulants, accidental (unintentional), initial encounter (principal); E87.0 Hyperosmolality and hypernatremia; R13.10 Dysphagia, unspecified; I10 Essential (primary) hypertension; E78.5 Hyperlipidemia, unspecified; K21.9 Gastro-esophageal reflux disease without esophagitis; R41.82 Altered mental status, unspecified; R91.1 Solitary pulmonary nodule; G47.33 Obstructive sleep apnea (adult) (pediatric); N28.1 Cyst of kidney, acquired; Z85.51 Personal history of malignant neoplasm of bladder; Z93.1 Gastrostomy status; Z86.718 Personal history of other venous thrombosis and embolism; Z79.01 Long term (current) use of anticoagulants; Z79.899 Other long term (current) drug therapy; Z79.82 Long term (current) use of aspirin

== ENCOUNTER 2017-01-31 11:49 | Emergency (ER) | payer MEDICARE, MEDICAID ==
[~2017-01-31] VITALS: Ht 182.9 cm; Wt 69.1 kg
[~2017-01-31 11:49] MED LIST changes: +ASPI81CH PEG; +DOXY100C37 PO; +FLOR250C PEG; +IPRASOL4 INH; +LANS30CA; +PREV30TA3 PEG; +SIMV40TA2 PO; +VITMTA PEG; +XARE20TA PEG; +ZOCO20TA PEG
[2017-01-31 11:50] VITALS: BP 126/76
== END 2017-01-31 15:08 | disposition home or self-care (01) ==
LOC: M ED 11:49
DX: K94.29 Other complications of gastrostomy (principal); I10 Essential (primary) hypertension; E78.70 Disorder of bile acid and cholesterol metabolism, unspecified; N40.0 Benign prostatic hyperplasia without lower urinary tract symptoms; Z79.51 Long term (current) use of inhaled steroids; Z79.01 Long term (current) use of anticoagulants; Z79.82 Long term (current) use of aspirin; Z79.899 Other long term (current) drug therapy

== ENCOUNTER 2017-02-15 09:43 | Day surgery (SDC) | payer MEDICARE, MEDICAID ==
[~2017-02-15] VITALS: Ht 182.9 cm; Wt 68.9 kg
[2017-02-15] MEDS ORDERED: NS 1,000 ML IV ONE (10:00)
[2017-02-15] MEDS ORDERED: PROPOFOL 200 MG/20 ML VIAL As Ordered ONE (11:01)
[2017-02-15] MEDS ORDERED: LIDOCAINE 2% INJ 100 MG/5 ML SDV (FOR ANES.) As Ordered ONE (11:01)
--- NOTE | 2017-02-15 11:31 | ROOR ---
Patient Name: Delfin Dunbar Procedure Date: 02/15/2017 11:15 AM Date of : 1930 Age: 87 Room: [facility] Gender: Male Note Status: Finalized Procedure: Upper GI endoscopy Indications: Replace PEG tube due to malfunctioning gastrostomy tube Providers: Giovanni Stephens MD Referring MD: Tiago Jha MD Requesting Provider: Medicines: Monitored Anesthesia Care Complications: No immediate complications. Procedure: Pre-Anesthesia Assessment: - Prior to the procedure, a History and Physical was performed, and patient medications and allergies were reviewed. The patient is competent. The risks and benefits of the procedure and the sedation options and risks were discussed with the patient. All questions were answered and informed consent was obtained. Patient identification and proposed procedure were verified by the physician, the nurse and the anesthesiologist in the endoscopy suite. Mental Status Examination: alert and oriented. Airway Examination: normal oropharyngeal airway and neck mobility. Respiratory Examination: clear to auscultation. CV Examination: irregularly irregular rate and rhythm. Prophylactic Antibiotics: The patient does not require prophylactic antibiotics. Prior Anticoagulants: The patient has taken Xarelto (rivaroxaban), last dose was 2 days prior to procedure. ASA Grade Assessment: III - A patient with severe systemic disease. After reviewing the risks and benefits, the patient was deemed in satisfactory condition to undergo the procedure. The anesthesia plan was to use monitored anesthesia care (MAC). Immediately prior to administration of medications, the patient was re-assessed for adequacy to receive sedatives. The heart rate, respiratory rate, oxygen saturations, blood pressure, adequacy of pulmonary ventilation, and response to care were monitored throughout the procedure. The physical status of the patient was re-assessed after the procedure. The Endoscope was introduced through the mouth, and advanced to the second part of duodenum. The upper GI endoscopy was accomplished without difficulty. The patient tolerated the procedure well. Findings: The examined esophagus was normal. The entire examined stomach was normal. The second portion of the duodenum was normal. There was evidence of an intact gastrostomy with a patent G-tube present on the anterior wall of the gastric antrum. This was characterized by healthy appearing mucosa. Estimated blood loss: none. The PEG required removal because it was broken. The PEG was removed under endoscopic vision. Removal was easily accomplished. A replacement 20 F Cook Gastostomy feeding tube placed through gastrostomy tract. 6 mL Saline placed on balloon. Gastostomy tube sutrued to skin with 0 silk. Gastrostomy tube tested, no leakage. Impression: - Normal esophagus. - Normal stomach. - Normal second portion of the duodenum. - Intact gastrostomy with a patent G-tube present characterized by healthy appearing mucosa. - The PEG was removed under endoscopic vision because it was broken. - No specimens collected. Recommendation: - Discharge patient to home (ambulatory). - Continue Xarelto (rivaroxaban) at prior dose. - Can use feeding tube today. Apply dry gauze dressing in betwee outside bumper and gastrostomy tube. change prn. and daily Check balloon (6mL) saline qweekly Flush tube with 30 to 50 ml water/saline after use Giovanni Stephens MD Giovanni Stephens MD 02/15/2017 11:30:39 AM This report has been signed electronically. Number of Addenda: 0 Note Initiated On: 02/15/2017 11:15 AM Estimated Blood Loss: Estimated blood loss: none.
[2017-02-15 11:50] VITALS: BP 116/60
== END 2017-02-15 12:20 | disposition home or self-care (01) ==
LOC: M SDC 09:43
PROVIDERS: ATTEND Surgery
DX: K94.23 Gastrostomy malfunction (principal); K21.9 Gastro-esophageal reflux disease without esophagitis; E78.5 Hyperlipidemia, unspecified; M12.9 Arthropathy, unspecified; M54.2 Cervicalgia; H91.90 Unspecified hearing loss, unspecified ear; R06.83 Snoring; G47.33 Obstructive sleep apnea (adult) (pediatric); N40.0 Benign prostatic hyperplasia without lower urinary tract symptoms; Z91.040 Latex allergy status; Z91.048 Other nonmedicinal substance allergy status; Z79.82 Long term (current) use of aspirin; Z79.01 Long term (current) use of anticoagulants; Z85.51 Personal history of malignant neoplasm of bladder; Z85.828 Personal history of other malignant neoplasm of skin; Z86.718 Personal history of other venous thrombosis and embolism; Z92.3 Personal history of irradiation; Z87.891 Personal history of nicotine dependence

== ENCOUNTER → 2017-05-17 | Outpatient (REF) | payer MEDICARE, MEDICAID | LOC: M SFHCLERA 13:47 | DX: C44.629 Squamous cell carcinoma of skin of left upper limb, including shoulder (principal) | CPT/HCPCS: 88305 ==

== ENCOUNTER 2017-06-06 08:25 | Emergency (ER) | payer MEDICARE, MEDICAID ==
[2017-06-06 10:18] LABS: BASO % 0.2 % (0.0-1.0); EOS # 0.1 10^3/uL (0.0-0.50); EOS % 1.2 % (0.0-3.0); HEMATOCRIT 37.8 % (42.0-52.0); HEMOGLOBIN 12.4 g/dl (14.0-18.0); IMMATURE GRANULOCYTE % 0.2 % (0-3.0); LYMPH # 0.7 10^3/uL (1.5-4.5); LYMPH % 13.6 % (24.0-44.0); MEAN CORPUSCULAR HEMOGLOBIN 32.9 pg (27.0-33.0); MEAN CORPUSCULAR HGB CONC 32.8 g/dl (32.0-36.5); MEAN CORPUSCULAR VOLUME 100.3 fl (80.0-96.0); MONO # 0.5 10^3/uL (0.0-0.8); MONO % 9.8 % (0.0-5.0); NEUTROPHILS # 3.8 10^3/uL (1.8-7.7); PLATELET COUNT, AUTOMATED 213 10^3/uL (150-450); RED BLOOD COUNT 3.77 10^6/uL (4.30-6.10); RED CELL DISTRIBUTION WIDTH 13.3 % (11.5-14.5)
[2017-06-06 10:31] LABS: INR 0.92; PROTHROMBIN TIME 12.5 SECONDS (12.4-14.5)
[2017-06-06 10:42] LABS: ALBUMIN 3.6 GM/DL (3.2-5.2); ALBUMIN/GLOBULIN RATIO 0.88 (1.00-1.93); ALKALINE PHOSPHATASE 96 U/L (45-117); ALT/SGPT 21 U/L (12-78); ANION GAP 6 MEQ/L (8-16); AST/SGOT 22 U/L (7-37); BILIRUBIN,DIRECT 0.1 MG/DL (0.0-0.2); BILIRUBIN,TOTAL 0.4 MG/DL (0.2-1.0); BLOOD UREA NITROGEN 29 MG/DL (7-18); CALCIUM LEVEL 9.7 MG/DL (8.8-10.2); CARBON DIOXIDE LEVEL 31 MEQ/L (21-32); CHLORIDE LEVEL 104 MEQ/L (98-107); CPK CREATINE PHOSPHOKINASE 147 U/L (39-308); CREATININE FOR GFR 0.78 MG/DL (0.70-1.30); GLOMERULAR FILTRATION RATE > 60.0 (>35); GLUCOSE, FASTING 91 MG/DL (70-100); POTASSIUM SERUM 3.9 MEQ/L (3.5-5.1); SODIUM LEVEL 141 MEQ/L (136-145); TOTAL PROTEIN 7.7 GM/DL (6.4-8.2); TROPONIN I < 0.02 NG/ML (< 0.10)
[2017-06-06 10:43] LABS: CK-MB VALUE MASS 2.1 NG/ML (<3.6); MB/CK RELATIVE INDEX 1.42 (< OR =4); NT-PRO BNP 170 PG/ML (<450)
[2017-06-06 11:15] LABS: KETONE, URINE AUTO RFX NEGATIVE (NEGATIVE); LEUKOCYTE ESTERASE UR AUTO RFX NEGATIVE (NEGATIVE); MUCUS, URINE RFX SMALL (NEGATIVE); NITRITE, URINE AUTO RFX NEGATIVE (NEGATIVE); RBC, URINE AUTO RFX 1 /HPF (0-3); SQUAM EPITHELIAL CELL UR AURFX 0 /HPF (0-6); WBC, URINE AUTO RFX 1 /HPF (0-3)
[2017-06-06] MEDS ORDERED: ISOVUE-370 76% 100ML VIAL (Q9967) As Ordered (11:35)
[2017-06-06] MEDS: ALBUTEROL SULFATE 2.5 MG/0.5 ML INH NEB SOLN NEB (13:51)
== END 2017-06-06 14:31 | disposition home or self-care (01) ==
LOC: M ED 08:25
DX: J47.9 Bronchiectasis, uncomplicated (principal); R04.2 Hemoptysis; J44.9 Chronic obstructive pulmonary disease, unspecified; G47.33 Obstructive sleep apnea (adult) (pediatric); N40.0 Benign prostatic hyperplasia without lower urinary tract symptoms; K21.9 Gastro-esophageal reflux disease without esophagitis; Z79.82 Long term (current) use of aspirin; Z79.01 Long term (current) use of anticoagulants; Z91.040 Latex allergy status; Z91.048 Other nonmedicinal substance allergy status; Z86.69 Personal history of other diseases of the nervous system and sense organs; Z86.718 Personal history of other venous thrombosis and embolism; Z98.890 Other specified postprocedural states; Z87.891 Personal history of nicotine dependence
CPT/HCPCS: Q9967

== ENCOUNTER → 2017-08-15 | Outpatient (CLI) | payer MEDICARE, MEDICAID | LOC: M RAD 09:42 | DX: I70.303 Unspecified atherosclerosis of unspecified type of bypass graft(s) of the extremities, bilateral legs (principal); I72.8 Aneurysm of other specified arteries | CPT/HCPCS: 93923 ==

== ENCOUNTER → 2017-08-16 | Outpatient (REF) | payer MEDICARE, MEDICAID | LOC: M SFHCLERA 13:43 | DX: C44.310 Basal cell carcinoma of skin of unspecified parts of face (principal); L82.0 Inflamed seborrheic keratosis | CPT/HCPCS: 88305 ==

== ENCOUNTER 2017-08-30 11:02 | Emergency (ER) | payer MEDICARE, MEDICAID ==
[2017-08-30 13:00] LABS: AMORPHOUS SEDIMENT RFX SMALL (NEGATIVE); CALCIUM OXALATE CRYSTALS RFX SMALL; KETONE, URINE AUTO RFX NEGATIVE (NEGATIVE); LEUKOCYTE ESTERASE UR AUTO RFX NEGATIVE (NEGATIVE); MUCUS, URINE RFX SMALL (NEGATIVE); NITRITE, URINE AUTO RFX NEGATIVE (NEGATIVE); RBC, URINE AUTO RFX 5 /HPF (0-3); SPECIFIC GRAVITY UR AUTO RFX 1.018 (1.002-1.035); SQUAM EPITHELIAL CELL UR AURFX 0 /HPF (0-6); WBC, URINE AUTO RFX 2 /HPF (0-3)
[2017-08-30 13:56] LABS: BASO % 0.1 % (0.0-1.0); EOS % 0.2 % (0.0-3.0); HEMATOCRIT 35.4 % (42.0-52.0); HEMOGLOBIN 11.8 g/dl (13.5-17.5); IMMATURE GRANULOCYTE % 0.2 % (0-3.0); LYMPH # 0.9 10^3/uL (1.5-4.5); LYMPH % 9.3 % (24.0-44.0); MEAN CORPUSCULAR HEMOGLOBIN 31.6 pg (27.0-33.0); MEAN CORPUSCULAR HGB CONC 33.3 g/dl (32.0-36.5); MEAN CORPUSCULAR VOLUME 94.7 fl (80.0-96.0); MONO # 0.9 10^3/uL (0.0-0.8); MONO % 9.9 % (0.0-5.0); NEUTROPHILS # 7.5 10^3/uL (1.8-7.7); NEUTROPHILS % 80.3 % (36.0-66.0); PLATELET COUNT, AUTOMATED 201 10^3/uL (150-450); RED BLOOD COUNT 3.74 10^6/uL (4.30-6.10); RED CELL DISTRIBUTION WIDTH 13.2 % (11.5-14.5); WHITE BLOOD COUNT 9.3 10^3/uL (4.0-10.0)
[2017-08-30 14:20] LABS: ANION GAP 7 MEQ/L (8-16); BLOOD UREA NITROGEN 22 MG/DL (7-18); CALCIUM LEVEL 9.1 MG/DL (8.8-10.2); CARBON DIOXIDE LEVEL 29 MEQ/L (21-32); CHLORIDE LEVEL 104 MEQ/L (98-107); CREATININE FOR GFR 0.75 MG/DL (0.70-1.30); GLOMERULAR FILTRATION RATE > 60.0 (>35); GLUCOSE, FASTING 99 MG/DL (70-100); POTASSIUM SERUM 4.1 MEQ/L (3.5-5.1); SODIUM LEVEL 140 MEQ/L (136-145)
[2017-08-30] MEDS ORDERED: AUGMENTIN ES SUSP POWDER 600MG/5ML 125ML BTL PO (15:45)
== END 2017-08-30 15:59 | disposition home or self-care (01) ==
LOC: M ED 11:02
DX: K94.23 Gastrostomy malfunction (principal); J44.9 Chronic obstructive pulmonary disease, unspecified; N40.0 Benign prostatic hyperplasia without lower urinary tract symptoms; R42 Dizziness and giddiness; E78.5 Hyperlipidemia, unspecified; Z79.899 Other long term (current) drug therapy; Z79.01 Long term (current) use of anticoagulants; Z79.82 Long term (current) use of aspirin; Z91.040 Latex allergy status; Z91.048 Other nonmedicinal substance allergy status
CPT/HCPCS: 80048